=== PATIENT | male | born 1970 | race Caucasian/White ===

== ENCOUNTER 2023-04-16 16:38 | Outpatient (CLI) | payer BC, SELFPAY ==
--- NOTE | ~2023-04-16 | XR_ITS ---
Supine and upright views of the abdomen Clinical history: Kidney stones Findings: Bowel gas pattern is nonspecific. No evidence for obstruction or free air. Left-sided kidne y stones are present, largest measuring up to approximately 12 mm. There are probable small right issac al stones measuring up to approximately 3 mm.. Osseous structures are intact. Impression: Bilateral nephrolithiasis, left worse than right, as detailed above. Reviewed, dictated and finalized at location . Impression: Bilateral nephrolithiasis, left worse than right, as detailed above.
== END 2023-04-16 16:39 | disposition home or self-care (01) ==
LOC: ANHIMG 16:43
PROVIDERS: PCP Family Medicine Sports Medicine; Visit Provider Urology
DX: N20.0 Calculus of kidney (principal)
CPT/HCPCS: 74018

== ENCOUNTER 2023-05-05 10:13 | Outpatient (CLI) | payer BC, SELFPAY ==
--- NOTE | 2023-05-05 10:21 | ECG_ITS ---
Measurements Intervals Allen Rate: 70 P: 6 ID: [id number] QRS: -2 QRSD: 97 T: 4 QT: 356 QTc: 385 Interpretive Statements SINUS RHYTHM WITH OCCASIONAL VENTRICULAR PREMATURE COMPLEXES CONSIDER PREVIOUS ANTEROSEPTAL NM ABNORMAL ECG NO PREVIOUS ECG AVAILABLE FOR COMPARISON Electronically Signed On 05-06-2023 8:15:14 CDT by Milan Mejia M.D.
== END 2023-05-05 10:14 | disposition home or self-care (01) ==
LOC: ANHCARD 10:16
PROVIDERS: PCP Family Medicine Sports Medicine; Visit Provider Anesthesiology
DX: Z01.818 Encounter for other preprocedural examination (principal); R94.31 Abnormal electrocardiogram [ECG] [EKG]; R93.1 Abnormal findings on diagnostic imaging of heart and coronary circulation; I10 Essential (primary) hypertension
CPT/HCPCS: 93005

== ENCOUNTER 2023-05-11 01:28 | Day surgery (SDC) | payer BC, SELFPAY ==
[2023-05-01 11:21] VITALS: BMI 53.8
--- NOTE | 2023-05-01 11:33 | PC.NURSE ---
Report to the Outpatient Waiting Room, entrance under the green pavilion located off [facility], at time 0600 on date 05/11/23. Planned Procedure Time: 0730. Time changes happen often and if your time is changed the preop area will call you the afternoon before. - You and your visitor will be asked to self-screen and do not enter if you have any COVID symptoms. - A mask is optional within the hospital at this time. Patients may have clear liquids (water, carbonated beverages, clear teas, apple juice) until 3 hours prior to surgery with a maximum of 20 ounces. - No food from midnight until time of surgery Take the following medications with a SIP of water the morning of surgery: AMLODIPINE, CARVEDILOL DO NOT STOP ANY OF YOUR OTHER PRESCRIPTION MEDICATIONS PRIOR TO SURGERY ?EXCEPT THE FOLLOWING Medications to discontinue per physician: N/A Date to take last dose: N/A Please no make-up, nail guyanese, hairspray, perfume, deodorant, or body powder the day of surgery. No jewelry (including any body piercings) or valuables the day of surgery, leave them at home. Please take a shower or bath the night before, or the morning of, surgery with an antibacterial soap. Wear comfortable, loose fitting clothing. - Jewelry must be removed prior to entering the operating room. Rings and piercings that are not removed may be cut off. - The hospital will not accept responsibility for valuables. - Please leave all valuables, including medications, at home the day of surgery. If you are going home after surgery, a licensed ups driver must drive you home. - NO public transportation without another adult if you receive anesthesia. - We recommend that an adult stay with you for 24 hours following discharge. - We also recommend that you do not drive, make important decision, drink alcoholic beverages, or take any drugs that were not prescribed by your health care provider for at least 24 hours after your discharge time. Follow any additional instructions given to you from your surgeon. If you or anyone in your household have experienced Covid symptoms in the past week, please notify your surgeon or the nurse liaison at the phone number below for possible testing. Telephone instructions given to PT - JUAN DANG and asked if any additional questions and then verbalized understanding. Patient advised to call surgeon office or pre surgery nurse liaison [phone] if any additional questions.
--- NOTE | 2023-05-01 11:55 | PC.NURSE ---
Report to the Outpatient Waiting Room, entrance under the green pavilion located off [facility], at time 10:00 on date 05/11/23. Planned Procedure Time: 12:00. Time changes happen often and if your time is changed the preop area will call you the afternoon before. - You and your visitor will be asked to self-screen and do not enter if you have any COVID symptoms. - A mask is optional within the hospital at this time. Patients may have clear liquids (water, carbonated beverages, clear teas, apple juice) until 3 hours prior to surgery (9:00) with a maximum of 20 ounces. - No food from midnight until time of surgery Take the following medications with a SIP of water the morning of surgery: AMLODIPINE, CARVEDILOL DO NOT STOP ANY OF YOUR OTHER PRESCRIPTION MEDICATIONS PRIOR TO SURGERY ?EXCEPT THE FOLLOWING Medications to discontinue per physician: N/A Date to take last dose: N/A Please no make-up, nail colombian, hairspray, perfume, deodorant, or body powder the day of surgery. No jewelry (including any body piercings) or valuables the day of surgery, leave them at home. Please take a shower or bath the night before, or the morning of, surgery with an antibacterial soap. Wear comfortable, loose fitting clothing. - Jewelry must be removed prior to entering the operating room. Rings and piercings that are not removed may be cut off. - The hospital will not accept responsibility for valuables. - Please leave all valuables, including medications, at home the day of surgery. If you are going home after surgery, a licensed local tanker truck driver must drive you home. - NO public transportation without another adult if you receive anesthesia. - We recommend that an adult stay with you for 24 hours following discharge. - We also recommend that you do not drive, make important decision, drink alcoholic beverages, or take any drugs that were not prescribed by your health care provider for at least 24 hours after your discharge time. Follow any additional instructions given to you from your surgeon. If you or anyone in your household have experienced Covid symptoms in the past week, please notify your surgeon or the nurse liaison at the phone number below for possible testing. Telephone instructions given to PT - JUAN DANG and asked if any additional questions and then verbalized understanding. Patient advised to call surgeon office or pre surgery nurse liaison [phone] if any additional questions.
--- NOTE | 2023-05-02 07:29 | P.HP_ITS ---
History of Present Illness History of Present Illness Consent: Risks, benefits, and alternatives have been discussed and questions answered. Patient agrees to proceed with procedure. Chief complaint: lt renal stone Narrative: Robert Stroud is a 52 year old male with a history of recurrent urolithiasis who now has known hyperparathyroidism which is attempting to be managed did [facility]. In routine follow-up he was found to hav e a small stone in his right kidney but a 12 mm stone in his left kidney. We discussed options and ultimately decided on laser lithotripsy via ureteroscopy. Review of Systems Cardiovascular: Cardiovascular: Denies chest pain, Denies lightheadedness, Denies palpitations and Denies dyspnea Respiratory: Respiratory: Denies dyspnea Gastrointestinal: Gastrointestinal: Denies diarrhea, Denies nausea and Denies vomiting Genitourinary: Genitourinary: Denies hematuria and Denies dysuria Endocrine: Endocrine: Denies palpitations [facility] Social History Social History Smoking packs per day: 1 Smoking cigarettes per day: 20.0 Years smoked: 10 Smoking pack-years: 10.00 Smoking status: Current every day smoker Tobacco type: cigarettes Alcohol intake: current Alcohol use details: RARE Substance use: never Substance use type: does not use Living arrangements: with family Additional living arrangements comments: MOTHER Spiritual care concerns: No Meds Home Medications and Allergies Home Medications Medication Instructions Recorded Confirmed Type amlodipine 10 mg tablet 10 mg PO DAILY 05/01/23 05/01/23 History atorvastatin 20 mg tablet 20 mg PO HS 05/01/23 05/01/23 History carvedilol 12.5 mg tablet 12.5 mg PO BID 05/01/23 05/01/23 History lisinopril 40 mg tablet 40 mg PO DAILY 05/01/23 05/01/23 History Allergies Allergy/AdvReac Type Severity Reaction Status Date / Time No Known Allergies Allergy Verified 05/01/23 11:19 Exam Const: General: no acute distress Resp: Effort & Inspection: normal respiratory effort GI: Inspection: non-distended GI Palp: No abdominal tenderness and No Guarding due to palpation present (GI) Auscultation: normal bowel sounds Assessment and Plan Assessment and plan (1) Left renal stone: Code(s): N20.0 - Calculus of kidney Status: Acute Assessment and Plan: * cystoscopy with left ureteroscopy, laser lithotripsy with stone extraction, possible retrograde pyelography, possible left ureteral stent placement
--- NOTE | ~2023-05-11 | XR_ITS ---
EXAMINATION: XR retrograde pyelo w/stent LT DATE: 05/11/2023 11:33 INDICATION: Nephrolithiasis for left retrograde ureteral pyelogram and stent placement. TECHNIQUE: 3 fluoroscopic images of the abdomen and pelvis were obtained during procedure performed eduardo Carreon. Radiologist was not present for the imaging or procedure. The amount of fluoroscopy gonzales e used during this procedure was 3.2 minutes. COMPARISON: 04/16/2023 FINDINGS: Initial image demonstrates cannulation of the left ureter to the renal pelvis with injection of small amount of contrast which only incompletely opacifies the collecting system extending primarily into the upper pole calyx. Densities at the mid and lower pole calyces which appear to correspond to the p revious noted renal stones. Final images demonstrate placement of a left internal ureteral stent with loops formed in the region of the left renal pelvis and in the bladder. The previously noted stones are not appreciated on the final image over the regions of the lateral upper pole of the left kidney may be excluded from the field of imaging. IMPRESSION: 1. Left nephrolithiasis, potentially extracted, with placement of a left internal ureteral stent whic h is in expected position. See procedure note for further detail. Reviewed, dictated and finalized at location A. IMPRESSION: 1. Left nephrolithiasis, potentially extracted, with placement of a left internet media planner al ureteral stent which is in expected position. See procedure note for further detail.
--- NOTE | 2023-05-11 07:01 | WPDANESEPPF ---
Anes - Initial Pre Proc Eval Procedure: Operation Date: 05/11/23 10:30 Proposed Procedures p Cystoscopy ,Left Ureteroscopy, Left Retrograde Pyelogram, Possible Left Stone Extraction, Possible Left Stent Placement, Possible Holmium Laser - Layton Carreon MD Date/Time: 05/11/23 07:01 Surgeon: Layton Carreon MD Pre Op Diagnosis: lt renal stone Patient Data Age: 52 Gender: M Height: 1.88 m Weight: 190.51 kg Allergies Allergy/AdvReac Type Severity Reaction Status Date / Time No Known Allergies Allergy Verified 05/01/23 11:19 Home Medications Medication Instructions Recorded Confirmed Type amlodipine 10 mg tablet 10 mg PO DAILY 05/01/23 05/01/23 History atorvastatin 20 mg tablet 20 mg PO HS 05/01/23 05/01/23 History carvedilol 12.5 mg tablet 12.5 mg PO BID 05/01/23 05/01/23 History lisinopril 40 mg tablet 40 mg PO DAILY 05/01/23 05/01/23 History Patient hx anesthesia problems: none Family hx anesthesia problems: none Results Review: All pre-operative results and documents have been reviewed as part of the pre-operative evaluation. [facility] Past Medical History Medical History (Updated 05/11/23 @ 07:01 by Marv Shelley DO) COPD (chronic obstructive pulmonary disease) borderline Hyperlipidemia Hypertension OPAL (obstructive sleep apnea) Bipap Social History Social History Smoking packs per day: 1 Smoking cigarettes per day: 20.0 Years smoked: 10 Smoking pack-years: 10.00 Smoking status: Current every day smoker Tobacco type: cigarettes Alcohol intake: current Alcohol use details: RARE Substance use: never Substance use type: does not use Living arrangements: with family Additional living arrangements comments: MOTHER Spiritual care concerns: No Anes - Eval Final PreProcedure Day of Procedure 05/11/23 07:01 Patient weight: super morbidly obese Heart: regular rate and rhythm Lungs: clear to auscultation Airway: Mallampati scale class II Neurological: alert and oriented Last oral intake: >/= 8 hours ASA classification: III Emergent: no Anesthetic plan: proceed Anesthesia type and monitoring: general LMA and standard monitoring Results Review: All pre-operative results and documents have been reviewed as part of the pre-operative evaluation. Informed Consent: The patient's anesthetic plan and its attendant risks and benefits were discussed with the patient/family/POA. Questions were solicited and answers provided to the satisfaction of the patient/family/POA.
[2023-05-11] MEDS: LACTATED RINGERS 1,000 ML 30 ML IV CONT (09:30)
[2023-05-11 09:38] VITALS: BP 146/80; PULSE 65; RESP 16; TEMP 36.3; O2SAT 94
--- NOTE | 2023-05-11 10:27 | WPDHPUPDATE1 ---
History and Physical Update Update Date/Time: 05/11/23 10:27 History and Physical has been reviewed, including an updated exam of the patient. There are NO changes in the patient's condition. Risks, benefits, and alternatives have been discussed and questions answered. Patient agrees to proceed with procedure.
[2023-05-11] MEDS: ceFAZolin 3 GM/D5W 100 ML 100 ML IVPB (10:32)
--- NOTE | 2023-05-11 11:37 | W.PM.PROC2 ---
Procedure Note - Detailed Date of Procedure 05/11/23 Pre-op Diagnosis left renal stones Post-op Diagnosis Same Procedure Performed Cystoscopy, left ureteroscopy with laser lithotripsy, stone extraction and stent placement Surgeon Layton Carreon MD Anesthesia General Description of Procedure Patient brought to the operative suite was prepped draped in routine sterile fashion while in dorsal lithotomy position after the uneventful induction of a general anesthetic. Cystoscopy was undertaken with a 19 F rigid cystoscope. He has a moderate prostate with a high median bar. Bladder shows slight trabeculation without intravesical foreign body or neoplasm. A 0.035 in glidewire was advanced into his left renal pelvis and the distal ureter was dilated with an 8 F 10 F dilator. The safety wire was placed. The left ureteral re-endoscopy is undertaken 1st with a semi-rigid ureteral scope to ensure no distal stones and then a flexible scope. He has a 12 mm lower pole stone which I moved into an upper pole calyx with a Zero tip basket. He has a couple small mid pole calyceal stones. Using a 273 micron holmium laser fiber I dusted all stones into fragments less than 2 mm. A couple of the larger fragments were extracted with the basket and a 4.8 F variable length stent was positioned with the proximal coil in the renal pelvis and distal coil in the bladder. Drains No Packing No Pathology Yes Complications No immediate complications Condition Stable Disposition PACU
[2023-05-11 11:39] VITALS: BP 172/105; PULSE 76; RESP 14; O2SAT 96
[2023-05-11 11:55] VITALS: BP 124/74; PULSE 59; RESP 16; O2SAT 99
[2023-05-11 12:10] VITALS: BP 148/78; PULSE 53; RESP 12; O2SAT 96
[2023-05-11 12:21] VITALS: BP 163/84; PULSE 56; RESP 20
[2023-05-11 12:50] VITALS: BP 141/59; PULSE 59; RESP 20
== END 2023-05-11 13:15 | disposition home or self-care (01) ==
PROVIDERS: PCP Family Medicine Sports Medicine; Visit Provider Urology
PROC: (CPT 52352; principal; 2023-05-11 10:30)
DX: N20.0 Calculus of kidney (principal); J44.9 Chronic obstructive pulmonary disease, unspecified; I10 Essential (primary) hypertension; E78.5 Hyperlipidemia, unspecified; G47.33 Obstructive sleep apnea (adult) (pediatric); F17.210 Nicotine dependence, cigarettes, uncomplicated; E66.01 Morbid (severe) obesity due to excess calories; Z68.43 Body mass index [BMI] 50.0-59.9, adult
CPT/HCPCS: 52356; 74420; 82365; 88300; 93005; C1769; C1894; C2617; J0690; J1100; J2250; J2405; J2704; J3010; J7120; Q9966

== ENCOUNTER 2023-07-14 21:42 | Emergency (ER) | payer BC, SELFPAY ==
--- NOTE | ~2023-07-14 | US_ITS ---
EXAMINATION: US scrotum doppler DATE: 07/14/2023 23:54 INDICATION: Testicular pain and swelling. TECHNIQUE: Grayscale and Doppler ultrasound images of the testes were obtained. COMPARISON: CT abdomen and pelvis 07/15/2023 FINDINGS: The right testis measures 4.2 x 2.5 x 3.2 cm. The left testis measures 4.1 x 2.9 x 3.3 cm. There is normal vascular flow to both testes. The right epididymis demonstrates heterogeneous echogen icity and increased vascularity. The left epididymis demonstrates heterogeneous echogenicity and incr eased vascularity. There are small bilateral hydroceles. There is scrotal skin thickening. There is a right-sided varicocele. IMPRESSION: 1. Bilateral epididymitis. 2. Small bilateral hydroceles. Reviewed, dictated and finalized at location A. IC SUPERVISOR
--- NOTE | ~2023-07-14 | CT_ITS ---
EXAMINATION: CT abdomen pelvis wo con DATE: 07/15/2023 02:03 INDICATION: Kidney stone. TECHNIQUE: Computed tomography (CT) of the abdomen and pelvis was performed without intravenous contr ast. Automated exposure control and iterative reconstruction technique were employed. The dose-length product was 2130.14 mGy-cm. COMPARISON: None. FINDINGS: The visualized portions of the lung bases demonstrate mild atelectasis. No pleural effusion . The heart size is normal. No pericardial effusion. There is diffuse hepatic steatosis. The gallblad julia, spleen, pancreas, and adrenal glands are normal. There are 5 stones in right kidney measuring up to 5 mm. There are 6 stones in left kidney measuring up to 9 mm. There is a 3.2 cm cyst in left kidn ey. There is cortical thinning of the kidneys. There is a left inguinal hernia containing fat. There are no dilated loops of bowel. The appendix is normal. There are no pathologically enlarged lymph nod es. There is no free intraperitoneal fluid. IMPRESSION: 1. Bilateral nonobstructing kidney stones. 2. Left inguinal hernia containing fat. 3. Diffuse hepatic steatosis. Reviewed, dictated and finalized at location A. SQL DBA
[2023-07-14 21:49] VITALS: BP 153/78; PULSE 88; RESP 20; TEMP 37.1; O2SAT 95
[2023-07-14 22:04] LABS: Basophils Absolute Auto 0.1 K/mm3 (0.0-0.1); Basophils Percent Auto 0.4 % (0.2-1.2); Eosinophils Absolute Auto 0.1 K/mm3 (0-0.3); Eosinophils Percent Auto 1.1 % (0-4.4); Hematocrit 43.5 % (42.0-52.0); Hemoglobin 14.3 g/dL (14.0-18.0); Immature Granulocyte Absolute 0.02 K/mm3 (0.00-0.031); Immature Granulocyte Percent A 0.2 % (0-0.5); Lymphocytes Absolute Auto 2.06 K/mm3 (0.9-3.2); Lymphocytes Percent Auto 16.4 % (18.3-44.2); Mean Corpuscular HGB Conc 32.9 g/dl (32-36); Mean Corpuscular Hemoglobin 31.6 pg (26-34); Mean Corpuscular Volume 96.2 fl (80-100); Mean Platelet Volume 11.5 fl (7.4-10.4); Monocytes Percent Auto 7.8 % (2.6-8.5); Neutrophils Absolute Auto 9.3 K/mm3 (1.3-6.7); Neutrophils Percent Auto 74.1 % (45.5-73.1); Platelet Count Result 196 k/mm3 (150-375); Red Blood Count 4.52 M/mm3 (4.6-6.20); Red Cell Distribution Width 14.1 % (11.5-14.5); White Blood Count 12.6 K/mm3 (4.5-10.0)
[2023-07-14 22:14] LABS: Alanine Aminotransferase 29 U/L (6-50); Albumin Level 4.4 g/dL (3.5-5.1); Alkaline Phosphatase 95 U/L (38-126); Anion Gap 8 mmol/L (8-16); Aspartate Amino Transferase 20 U/L (17-59); Bilirubin,Total 1.1 mg/dL (0.2-1.3); Blood Urea Nitrogen 15 mg/dL (9-20); Calcium 12.5 mg/dL (8.4-10.2); Carbon Dioxide 22 mmol/L (22-30); Chloride 106 mmol/L (98-107); Estimated CRCL calculation 135 ml/min; Estimated Glomerular Filt Rate > 60; Glucose 107 mg/dL (65-110); Potassium 4.2 mmol/L (3.4-5.0); Sodium 136 mmol/L (137-145)
[2023-07-14 22:26] LABS: Appearance Urine Turbid (Clear); Bacteria Urine 4+ /hpf; Bilirubin Urine Negative (Negative); Blood Urine 3+ (Negative); Color Urine Dark Yellow (Yellow); Glucose Urine UA Negative (Negative); Ketones Urine Negative (Negative); Leukocyte Esterase Ur 3+ LEU/UL (Negative); Nitrate Urine Positive (Negative); Non Pathogenic Casts 0-2; Protein Urine 1+ mg/dL (Negative); RBC Urine 51-100 /hpf (0-2); Specific Grav Ur 1.017 (1.001-1.035); Squamous Epithelial Cell Urine None seen /hpf (Few); WBC Urine >100 /hpf; pH Urine 5.5 (5.0-9.0)
[2023-07-14 22:27] LABS: Add Urine Microscopic? YES
[2023-07-15] VITALS (11 sets, daily range): BP systolic 145–153; BP diastolic 67–86; PULSE 71–82; RESP 14–20; O2SAT 94–97
[2023-07-15] MEDS: SODIUM CHLORIDE 0.9% IV 1,000 ML 999 ML IV CONT (01:36)
[2023-07-15] MEDS: levoFLOXacin 750 MG/D5W 150 ML 750 MG/150 ML BAG 100 MG IVPB (01:36)
[2023-07-15] MEDS: MORPHINE SULFATE (*CRX) 4 MG/ML INJ IV PUSH (03:00)
--- NOTE | 2023-07-15 05:46 | ED.GENADULT ---
HPI - General Adult General Chief complaint: Urogenital-Male Stated complaint: L testicle swelling and pain Time Seen by Provider: 07/15/23 00:29 History of Present Illness HPI narrative: Patient 52-year-old gentleman who presents emerged from with chief complaint of left scrotal pain. Patient reports that he started having pain and swelling in the left side of the scrotum this morning. The patient reports that his left testicle is extremely swelling does have prior history of kidney stones. Related Data Home Medications Medication Instructions Recorded Confirmed amlodipine 10 mg tablet 10 mg PO DAILY 05/01/23 05/01/23 atorvastatin 20 mg tablet 20 mg PO HS 05/01/23 05/01/23 carvedilol 12.5 mg tablet 12.5 mg PO BID 05/01/23 05/11/23 lisinopril 40 mg tablet 40 mg PO DAILY 05/01/23 05/01/23 Allergies Allergy/AdvReac Type Severity Reaction Status Date / Time No Known Allergies Allergy Verified 07/14/23 21:54 Review of Systems Review of Systems: A 10 system review of systems was completed on the patient and is negative except for what is stated in the HPI. Nursing and ancillary documentation was reviewed. PMFSH Past Medical History Medical History COPD (chronic obstructive pulmonary disease) borderline Hyperlipidemia Hypertension OPAL (obstructive sleep apnea) Bipap Social History Social History Smoking packs per day: 1 Smoking cigarettes per day: 20.0 Years smoked: 10 Smoking pack-years: 10.00 Smoking status: Current every day smoker Tobacco type: cigarettes Alcohol intake: current Alcohol use details: RARE Substance use: never Substance use type: does not use Living arrangements: with family Additional living arrangements comments: MOTHER Spiritual care concerns: No Exam Narrative: GENERAL: Well-appearing, well-nourished, and in no acute distress. HEAD: Normocephalic, atraumatic. EYES: PERRLA and EOMI. ENT: Nares clear, no rhinorrhea or epistaxis. Mucous membranes moist. NECK: Supple. CHEST: Clear to auscultation. No respiratory distress. HEART: Regular rate and rhythm. No murmur heard. Normal peripheral pulses. ABDOMEN: Soft, nontender, nondistended, normal active bowel sounds. : The scrotum is approximately the size of a grapefruit there is tenderness to palpation in the left hemiscrotum there is redness of the scrotum there is no crepitance there is no necrotic tissue EXTREMITIES: Normal range of motion. No edema. SKIN: Warm, dry, no rash. NEURO: No focal deficits. Alert and oriented x3. PSYCH: Normal mood and affect. Course Vital Signs Vital signs: Vital Signs Temperature 37.1 C 07/14/23 21:49 Pulse Rate 88 07/14/23 21:49 Respiratory Rate 20 07/14/23 21:49 Blood Pressure 153/78 H 07/14/23 21:49 Pulse Oximetry 95 07/14/23 21:49 Oxygen Delivery Room Air 07/14/23 21:49 Temperature 37.1 C 07/14/23 21:49 Pulse Rate 72 07/15/23 05:00 Respiratory Rate 17 07/15/23 05:00 Blood Pressure 152/80 H 07/15/23 05:33 Pulse Oximetry 96 07/15/23 05:00 Oxygen Delivery Room Air 07/14/23 21:49 Medical Decision Making MDM Narrative Medical decision making narrative: Differential diagnosis includes epididymitis, epididymal orchitis, Magdalena's gangrene, Ultrasound of the scrotum showed evidence of a epididymitis CT scan of the abdomen pelvis showed no evidence of obstructive stone White blood cell count was slightly elevated urinalysis showed evidence of UTI. Will be discharged home on Levaquin and a prescription for [place]. Vital Signs Vital Signs: Vital Signs Temperature 37.1 C 07/14/23 21:49 Pulse Rate 88 07/14/23 21:49 Respiratory Rate 20 07/14/23 21:49 Blood Pressure 153/78 H 07/14/23 21:49 Pulse Oximetry 95 07/14/23 21:49 Oxygen Delivery Room Air 07/14/23 21:49
[2023-07-15 06:51] LABS: Chlamydia trachomatis NOT DETECTED (NOT DETECTE); Neisseria gonorrhoeae PCR NOT DETECTED (NOT DETECTE)
== END 2023-07-15 07:21 | disposition home or self-care (01) ==
PROVIDERS: Emergency Provider Emergency Medicine; PCP Family Medicine Sports Medicine
DX: N45.1 Epididymitis (principal); N39.0 Urinary tract infection, site not specified; I10 Essential (primary) hypertension; E78.5 Hyperlipidemia, unspecified; J44.9 Chronic obstructive pulmonary disease, unspecified; G47.33 Obstructive sleep apnea (adult) (pediatric); F17.210 Nicotine dependence, cigarettes, uncomplicated
CPT/HCPCS: 36415; 74176; 76870; 80053; 81001; 83605; 85025; 87040; 87077; 87086; 87147; 87181; 87186; 87491; 87591; 93976; 96365; 96366; 96375; 99284; J1956; J2270; J7030

== ENCOUNTER 2023-07-16 10:50 | Emergency (ER) | payer BC, SELFPAY ==
--- NOTE | ~2023-07-16 | XR_ITS ---
EXAMINATION: XR chest 2V DATE: 07/16/2023 11:37 INDICATION: Sepsis. TECHNIQUE: Frontal and lateral views of the chest were obtained. COMPARISON: CT abdomen and pelvis 07/15/2023 FINDINGS: There is no pneumonia, pleural effusion, or pneumothorax. The heart size is normal. Surgica l clips overlie the neck. IMPRESSION: 1. No acute cardiopulmonary disease. Reviewed, dictated and finalized at location A. ARY CLASS TEACHER
[2023-07-16 10:51] VITALS: BP 155/77; PULSE 81; RESP 16; TEMP 36.8; O2SAT 99
--- NOTE | 2023-07-16 11:11 | ED.RECABL ---
HPI - Recheck/Abnormal Lab/Rx General Chief Complaint: Recheck/Abnormal Lab/Rx <Gabo Zaman APRN - Last Filed: 07/16/23 17:51> Stated Complaint: positive blood cultures <Gabo Zaman APRN - Last Filed: 07/16/23 17:51> Time Seen by Provider: 07/16/23 11:12 <aGbo Zaman APRN - Last Filed: 07/16/23 17:51> Source: patient <Gabo Zaman APRN - Last Filed: 07/16/23 17:51> Mode of arrival: ambulatory <Gabo Zaman APRN - Last Filed: 07/16/23 17:51> Limitations: no limitations <Gabo Zaman APRN - Last Filed: 07/16/23 17:51> History of Present Illness HPI narrative: Robert is a 52-year-old male patient presenting to the clinic today with complaints of positive blood cultures-upon evaluation blood cultures are positive for E coli. Patient was treated with prescription for Levaquin and [place] for pain. Patient was seen on 07/14/23 and diagnosed with acute epididymitis. Did have scrotal/penile edema. White blood cell count was initially 12.6. Urine culture is positive for E coli as well. His PCP got his blood culture results as positive for E coli and told him he needed to come to the ER for further evaluation. Diagnostic ultrasound shows bilateral epididymitis and CT of abdomen pelvis shows left inguinal hernia containing fat, He denies any fever, chills, weakness, fatigue, or body aches. Last Levaquin dose was last night. <Gabo Zaman APRN - Last Filed: 07/16/23 17:51> Related Data Home Medications: Home Medications Medication Instructions Recorded Confirmed amlodipine 10 mg tablet 10 mg PO DAILY 05/01/23 05/01/23 atorvastatin 20 mg tablet 20 mg PO HS 05/01/23 05/01/23 carvedilol 12.5 mg tablet 12.5 mg PO BID 05/01/23 05/11/23 lisinopril 40 mg tablet 40 mg PO DAILY 05/01/23 05/01/23 <Gabo Zaman APRN - Last Filed: 07/16/23 17:51> Allergies/Adverse Reactions: Allergies Allergy/AdvReac Type Severity Reaction Status Date / Time No Known Allergies Allergy Verified 07/14/23 21:54 <Gabo Zaman APRN - Last Filed: 07/16/23 17:51> Review of Systems Review of Systems: Pertinent positives per HPI. Patient denies any fever, chills, rash, headache, visual changes, dizziness, cough, runny nose, sore throat, shortness of breath, chest pain, palpitations, nausea, vomiting, diarrhea, constipation, abdominal pain. <Gabo Zaman APRN - Last Filed: 07/16/23 17:51> [facility] Past Medical History Medical History: Medical History COPD (chronic obstructive pulmonary disease) borderline Hyperlipidemia Hypertension OPAL (obstructive sleep apnea) Bipap <Gabo Zaman APRN - Last Filed: 07/16/23 17:51> Social History Social History: Social History Smoking packs per day: 1 Smoking cigarettes per day: 20.0 Years smoked: 10 Smoking pack-years: 10.00 Smoking status: Current every day smoker Tobacco type: cigarettes Alcohol intake: current Alcohol use details: RARE Substance use: never Substance use type: does not use Living arrangements: with family Additional living arrangements comments: MOTHER Spiritual care concerns: No <RANDY Lopez Last Filed: 07/16/23 17:51> Comments At the time of my signature, I reviewed and agree with the nursing past medical, surgical, social, and family history. There is no relevant family history pertinent to the patient complaint. <Gabo Zaman APRN - Last Filed: 07/16/23 17:51> Exam Narrative: General: Well-developed, morbidly obese, in no apparent distress. Head: Normocephalic, atraumatic. Cardio: Regular rate and rhythm, s1 and s2 normal, no murmur appreciated. Resp: Clear to auscultation bilaterally, no rhonchi, rales, wheezing or rubs. Abdomen: Soft, pliable, bowel sounds present in al
--- NOTE | 2023-07-16 11:13 | ECG_ITS ---
Measurements Intervals [place] Rate: 71 P: 32 TN: 192 QRS: -1 QRSD: 95 T: 32 QT: 351 QTc: 382 Interpretive Statements SINUS RHYTHM LOW QRS VOLTAGE IN PRECORDIAL LEADS BORDERLINE ECG COMPARED TO ECG 05/05/2023 10:42:36 NO SIGNIFICANT CHANGES Electronically Signed On 07-16-2023 14:29:06 CAB STARTER by Ger Patel D.O.
[2023-07-16 12:14] LABS: Basophils Absolute Auto 0.1 K/mm3 (0.0-0.1); Basophils Percent Auto 0.5 % (0.2-1.2); Eosinophils Absolute Auto 0.2 K/mm3 (0-0.3); Eosinophils Percent Auto 2.1 % (0-4.4); Hematocrit 41.4 % (42.0-52.0); Hemoglobin 13.4 g/dL (14.0-18.0); Immature Granulocyte Absolute 0.03 K/mm3 (0.00-0.031); Immature Granulocyte Percent A 0.3 % (0-0.5); Lymphocytes Absolute Auto 1.96 K/mm3 (0.9-3.2); Mean Corpuscular HGB Conc 32.4 g/dl (32-36); Mean Corpuscular Hemoglobin 31.5 pg (26-34); Mean Corpuscular Volume 97.2 fl (80-100); Mean Platelet Volume 11.7 fl (7.4-10.4); Monocytes Percent Auto 10.1 % (2.6-8.5); Platelet Count Result 219 k/mm3 (150-375); Red Blood Count 4.26 M/mm3 (4.6-6.20); White Blood Count 10.3 K/mm3 (4.5-10.0)
[2023-07-16 12:24] LABS: Lactic Acid Reflex 0.8 mmol/L (0.7-2.0)
[2023-07-16 12:26] LABS: INR 1.1; Prothrombin Time 14.4 Seconds (11.1-14.7)
[2023-07-16 12:27] LABS: Partial Thromboplastin Time 30.5 SECONDS (22.3-36.8)
[2023-07-16 12:28] LABS: Alanine Aminotransferase 26 U/L (6-50); Albumin Level 4.2 g/dL (3.5-5.1); Alkaline Phosphatase 71 U/L (38-126); Anion Gap 6 mmol/L (8-16); Aspartate Amino Transferase 25 U/L (17-59); Bilirubin,Total 0.7 mg/dL (0.2-1.3); Blood Urea Nitrogen 20 mg/dL (9-20); CRP 5.4 mg/dL (<1.0); Calcium 12.5 mg/dL (8.4-10.2); Carbon Dioxide 23 mmol/L (22-30); Chloride 110 mmol/L (98-107); Estimated CRCL calculation 125 ml/min; Estimated Glomerular Filt Rate > 60; Glucose 99 mg/dL (65-110); Potassium 4.5 mmol/L (3.4-5.0); Sodium 139 mmol/L (137-145)
[2023-07-16 12:45] LABS: Appearance Urine Cloudy (Clear); Bacteria Urine None Seen /hpf; Bilirubin Urine Negative (Negative); Blood Urine 2+ (Negative); Color Urine Yellow (Yellow); Glucose Urine UA Negative (Negative); Ketones Urine Negative (Negative); Leukocyte Esterase Ur 2+ LEU/UL (Negative); Mucus Urine Present /lpf; Nitrate Urine Positive (Negative); Protein Urine Trace mg/dL (Negative); RBC Urine 21-50 /hpf (0-2); Specific Grav Ur 1.017 (1.001-1.035); Squamous Epithelial Cell Urine None seen /hpf (Few); WBC Urine >100 /hpf; pH Urine 5.5 (5.0-9.0)
[2023-07-16 12:46] LABS: Add Urine Microscopic? YES
[2023-07-16] MEDS: SODIUM CHLORIDE 0.9% IV 1,000 ML 999 ML IV CONT (12:51)
[2023-07-16] MEDS: ACETAMINOPHEN 500 MG TABLET 1000 MG PO (15:14)
[2023-07-16 15:16] VITALS: BP 160/90; PULSE 74; RESP 18; TEMP 36.8; O2SAT 98
--- NOTE | 2023-07-16 15:24 | PC.NURSE ---
Noted pts scrotum & penis edematous. Pt states he feels the pressure is much better than yesterday, denies any urinary symptoms
[2023-07-16 16:50] VITALS: BP 160/90; PULSE 78; RESP 18; TEMP 36.8; O2SAT 98
== END 2023-07-16 16:54 | disposition home or self-care (01) ==
PROVIDERS: Emergency Provider Nurse Practitioner Family; PCP Family Medicine Sports Medicine
DX: N30.01 Acute cystitis with hematuria (principal); B96.20 Unspecified Escherichia coli [E. coli] as the cause of diseases classified elsewhere; K40.90 Unilateral inguinal hernia, without obstruction or gangrene, not specified as recurrent; N45.1 Epididymitis; J44.9 Chronic obstructive pulmonary disease, unspecified; E78.5 Hyperlipidemia, unspecified; I10 Essential (primary) hypertension; G47.33 Obstructive sleep apnea (adult) (pediatric); F17.210 Nicotine dependence, cigarettes, uncomplicated; R94.31 Abnormal electrocardiogram [ECG] [EKG]
CPT/HCPCS: 36415; 71046; 80053; 81001; 83605; 85025; 85610; 85730; 86140; 87040; 87086; 93005; 96361; 96365; 99284; A9270; J0696; J7030

== ENCOUNTER 2023-08-17 11:27 | Inpatient (IN) | payer BC, SELFPAY ==
[2023-08-17] VITALS (9 sets, daily range): BP systolic 131–154; BP diastolic 74–100; PULSE 103–112; RESP 7–29; TEMP 37.5–38.9; O2SAT 91–96; BMI 53.1
--- NOTE | ~2023-08-17 | CT_ITS ---
EXAMINATION: CT abdomen pelvis w con DATE: 08/17/2023 18:59 INDICATION: Right flank pain and testicular swelling. TECHNIQUE: Computed tomography (CT) of the abdomen and pelvis was performed with 100 mL Omnipaque-350 intravenous contrast. Automated exposure control and iterative reconstruction technique were employe d. The dose-length product was 2084.10 mGy-cm. COMPARISON: 07/15/2023 FINDINGS: Mild bibasilar atelectasis. Heart size is normal. No pericardial or pleural effusion. Diffuse hepatic steatosis. Gallbladder, spleen, pancreas and bilateral adrenal glands are normal. Bilateral nephroli thiasis with 6 nonobstructing stones in left kidney the largest measuring up to 7 mm and a couple 1-2 mm stones in the right kidney. There are also 2 stones in the proximal right ureter, the larger and more caudal measuring 5-6 mm and which results in mild to moderate right hydronephrosis with mild per inephric stranding. No stones seen in the more distal right ureter or in the left ureter. There are b ilateral renal cysts the largest on the left measuring 3.4 cm. Bladder is normal. Bowels including th e appendix are normal. There is a large fat-containing left inguinal hernia which extends into the le ft hemiscrotum. There is prominent scrotal edema with small to moderate-sized left hydrocele. No free intraperitoneal gas or fluid. No pathologically enlarged abdominal or pelvic lymphadenopathy. Mild t horacolumbar spondylosis with transitional S1 segment which is lumbarized on the right. IMPRESSION: 1. Bilateral nephrolithiasis with obstructing 5-6 mm stone in the proximal right ureter with mild to moderate right hydronephrosis. 2. Nonspecific scrotal edema and small to moderate-sized left hydrocele. 3. Large fat-containing left inguinal hernia which extends into the left hemiscrotum. 4. Diffuse hepatic steatosis. Reviewed, dictated and finalized at location A. NI RELATIONS MANAGER IMPRESSION: 1. Bilateral nephrolithiasis with obstructing 5-6 mm stone in the proximal righ t ureter with mild to moderate right hydronephrosis. 2. Nonspecific scrotal edema and small to moderate-sized left hydrocele. 3. Large fat-containing left inguinal hernia which extends into the left hemisc rotum. 4. Diffuse hepatic steatosis.
--- NOTE | ~2023-08-17 | XR_ITS ---
EXAMINATION: XR abdomen/kub 1V DATE: 08/17/2023 20:08 INDICATION: Obstructing right ureteral stone TECHNIQUE: A supine view of the abdomen on 3 radiographs was obtained. COMPARISON: CT dated 08/17/2023 FINDINGS: Excreted contrast from the prior CT seen in the bilateral renal collecting systems and bladder. Persi stent moderate hydronephrosis. There are couple densities projecting to the right of the L3-L4 disc s pace which likely represents the obstructing proximal right ureteral stone seen on prior CT. Normal b owel gas pattern. Lung bases are clear. IMPRESSION: 1. Persistent moderate right hydronephrosis with the obstructing proximal right ureteral stones likel y visible lateral to the L3-L4 disc space. Reviewed, dictated and finalized at location A. LIEUTENANT IMPRESSION: 1. Persistent moderate right hydronephrosis with the obstructing proximal right ureteral stones likely visible lateral to the L3-L4 disc space.
--- NOTE | ~2023-08-17 | XR_ITS ---
EXAMINATION: XR retrograde pyelo w/stent RT INDICATION: Right ureteral stone TECHNIQUE: Seven intraoperative fluoroscopic images are submitted for review. Total fluoroscopic time was 127.7 seconds COMPARISON: CT from yesterday FINDINGS: Fluoroscopic images demonstrate mild right hydroureter. The proximal aspect of an internal ureteral stent coils in the right renal pelvis. Please refer to procedure note for full details. IMPRESSION: 1. Please refer to procedure note for full details. Reviewed, dictated and finalized at location F. M SIGNALER
--- NOTE | ~2023-08-17 | US_ITS ---
EXAMINATION: US scrotum doppler DATE: 08/17/2023 19:06 INDICATION: Left testicular pain and swelling TECHNIQUE: Testicular sonogram utilizing grayscale and Doppler COMPARISON: 07/14/2023 FINDINGS: The right testis measures 4.7 x 3.7 x 1.8 cm. The left testis measures 4.0 x 3.9 x 2.8 cm. Symmetric normal grayscale appearance to both testes. There is normal vascular flow to both testes. 8 mm anecho ic right epididymal head cyst. The right epididymis is otherwise normal with normal vascular flow. Th e left epididymis is normal with normal vascular flow. What is designated as the head of the left epi didymis but the oil rigger. Represent a portion of the left inguinal herniated fat which is better a ppreciated on the prior CT. There is a small to moderate-sized mildly complex left hydrocele with min imal internal echoes and several thin internal septations which may be related to the recent epididym itis seen on the prior study. There is no varicocele or right-sided hydrocele. Persistent thickening of the scrotal wall. IMPRESSION: 1. Small to moderate-sized mildly complex left hydrocele which may be related to the recent prior bi lateral epididymitis. The bilateral testes and epididymides appear normal and the current study with normal vascular flow on color Doppler. 2. Persistent nonspecific scrotal wall edema. Reviewed, dictated and finalized at location A. ERY REPRESENTATIVE IMPRESSION: 1. Small to moderate-sized mildly complex left hydrocele which may be related to the recent prior bilateral epididymitis. The bilateral testes and epididymid es appear normal and the current study with normal vascular flow on color Doppl er. 2. Persistent nonspecific scrotal wall edema.
--- NOTE | ~2023-08-17 | CT_ITS ---
EXAMINATION: CT abdomen pelvis wo con DATE: 08/19/2023 11:03 INDICATION: Follow-up right ureteral calculus TECHNIQUE: Computed tomography (CT) of the abdomen and pelvis was performed without intravenous contr ast. Automated exposure control and iterative reconstruction technique were employed. The dose-length product was 1777.65 mGy-cm. COMPARISON: None. FINDINGS: Lower thorax: Bibasilar scar/atelectasis. Liver: Enlarged. Biliary/Gallbladder: Gallbladder is collapsed. No bile duct dilation. Pancreas: No mass or duct dilation. Spleen: Normal. Adrenals:No mass. Kidneys: Slightly increased right perinephric and moderately increased right periureteral stranding. Right ureteral stent, in good position. Gas in the renal pelvis and upper right calyces. 3 mm residua l calcification in the proximal right ureter. Multiple nonobstructing bilateral stones. Simple left m idpole cyst. GI tract: No small or large bowel dilation. Normal appendix. Mesentery/Peritoneum: No ascites, mass, or free air. Retroperitoneum: No mass. Atherosclerotic abdominal aortic and/or arterial calcifications. Pelvis: Mild urinary bladder wall thickening. Small gas bubble in the nondependent urinary bladder. T he distal loop of the ureteral stent is in good position.. Soft Tissues: Fat-containing left inguinal hernia. Bones: No acute osseous finding. IMPRESSION: Interval right ureteral stent placement. 3 mm residual right proximal ureteral stone. Increased mild right perinephric and moderate periureteral stranding, may represent post procedure inflammatory nichols ge. Infection is not excluded. Reviewed, dictated and finalized at location K. GER CARDIAC IMPRESSION: Interval right ureteral stent placement. 3 mm residual right proximal ureteral stone. Increased mild right perinephric and moderate periureteral stranding, ma y represent post procedure inflammatory change. Infection is not excluded.
--- NOTE | 2023-08-17 17:57 | ED.GENADULT ---
HPI - General Adult General Chief complaint: Urogenital-Male <Tomy Ellis PA-C - Last Filed: 08/18/23 02:51> Stated complaint: lower abd pain <CITLALI Gould Last Filed: 08/18/23 02:51> Time Seen by Provider: 08/17/23 17:21 <CITLALI Gould Last Filed: 08/18/23 02:51> Source: patient <CITLALI Gould Last Filed: 08/18/23 02:51> Mode of arrival: ambulatory <CITLALI Gould Last Filed: 08/18/23 02:51> Limitations: no limitations <CITLALI Gould Last Filed: 08/18/23 02:51> History of Present Illness HPI narrative: This is a 53-year-old male With PMH of OPAL, HTN, HLD, COPD who presents to the ED with chief complaint of fevers and dysuria for the past couple of days. Reports it is difficult to urinate but has urgency. Reports left testicular swelling that has been ongoing for the past several weeks and does not feel worse today But he still has pain here. Recent diagnosis of epididymitis. He is taking his antibiotics as prescribed. He also has chronic recurrent kidney stones and feels that he may have another one today is he is having right flank pain and suprapubic pain. He follows closely with Dr. Carreon (Urology). denies chest pain, shortness of breath, cough, problems with bowel movements. <CITLALI Gould Last Filed: 08/18/23 02:51> Related Data Home medications: Home Medications Medication Instructions Recorded Confirmed amlodipine 10 mg tablet 10 mg PO DAILY 05/01/23 08/17/23 atorvastatin 20 mg tablet 20 mg PO HS 05/01/23 08/17/23 carvedilol 12.5 mg tablet 12.5 mg PO BID 05/01/23 08/17/23 lisinopril 40 mg tablet 40 mg PO DAILY 05/01/23 08/17/23 <CITLALI Gould Last Filed: 08/18/23 02:51> Allergies/adverse reactions: Allergies Allergy/AdvReac Type Severity Reaction Status Date / Time No Known Allergies Allergy Verified 07/14/23 21:54 <Tomy Ellis PA-C - Last Filed: 08/18/23 02:51> Review of Systems Review of Systems: All systems as dictated in HPI <CITLALI Gould Last Filed: 08/18/23 02:51> PMFSH Past Medical History Medical History: Medical History COPD (chronic obstructive pulmonary disease) borderline Hyperlipidemia Hypertension OPAL (obstructive sleep apnea) Bipap <CITLALI Gould Last Filed: 08/18/23 02:51> Social History Social History: Social History Smoking packs per day: 1 Smoking cigarettes per day: 20.0 Years smoked: 10 Smoking pack-years: 10.00 Smoking status: Current every day smoker Tobacco type: cigarettes Alcohol intake: current Drinks per week: 2 Alcohol use details: RARE Substance use: never Substance use type: does not use Do You Feel Safe in your Home?: Yes Lack of Transportation: No Lack of Food: Never True Current Housing: I Have Housing Concerned About Future Housing: No Difficulty Paying Gas/Electric Bills: No Difficulty Paying for Meds: No Currently Unemployed: No Education: Associate Degree Difficulty w/ Childcare or Family Care: No Living arrangements: with family Additional living arrangements comments: MOTHER Spiritual care concerns: No <CITLALI Gould Last Filed: 08/18/23 02:51> Exam Narrative: GENERAL: Well-appearing, well-nourished, and in no acute distress. HEAD: Normocephalic, atraumatic. EYES: PERRLA and EOMI. ENT: Nares clear, no rhinorrhea or epistaxis. Mucous membranes moist. Oropharynx without tonsillar hypertrophy exudate or other lesions. NECK: Supple. No adenopathy or masses. CHEST: No respiratory distress. Clear to auscultation. No wheezes rales or rhonchi HEART: Regular rate and rhythm. No murmur heard. Normal peripheral pulses. ABDOMEN: Right flank tenderness. Soft, otherwise nontender, nondistended, normal active bowel soun
[2023-08-17 18:20] LABS: Basophils Percent Auto 0.3 % (0.2-1.2); Eosinophils Percent Auto 0.1 % (0-4.4); Hematocrit 45.3 % (42.0-52.0); Hemoglobin 14.8 g/dL (14.0-18.0); Immature Granulocyte Absolute 0.08 K/mm3 (0.00-0.031); Immature Granulocyte Percent A 0.5 % (0-0.5); Lymphocytes Absolute Auto 1.35 K/mm3 (0.9-3.2); Lymphocytes Percent Auto 8.7 % (18.3-44.2); Mean Corpuscular HGB Conc 32.7 g/dl (32-36); Mean Corpuscular Hemoglobin 30.8 pg (26-34); Mean Corpuscular Volume 94.2 fl (80-100); Mean Platelet Volume 11.7 fl (7.4-10.4); Monocytes Absolute Auto 1.5 K/mm3 (0.1-0.6); Neutrophils Absolute Auto 12.4 K/mm3 (1.3-6.7); Neutrophils Percent Auto 80.4 % (45.5-73.1); Platelet Count Result 209 k/mm3 (150-375); Red Blood Count 4.81 M/mm3 (4.6-6.20); Red Cell Distribution Width 13.9 % (11.5-14.5); White Blood Count 15.5 K/mm3 (4.5-10.0)
[2023-08-17 18:34] LABS: Alanine Aminotransferase 19 U/L (6-50); Albumin Level 4.2 g/dL (3.5-5.1); Alkaline Phosphatase 80 U/L (38-126); Anion Gap 9 mmol/L (8-16); Aspartate Amino Transferase 20 U/L (17-59); Bilirubin,Total 1.2 mg/dL (0.2-1.3); Blood Urea Nitrogen 14 mg/dL (9-20); Calcium 12.8 mg/dL (8.4-10.2); Carbon Dioxide 20 mmol/L (22-30); Chloride 104 mmol/L (98-107); Estimated CRCL calculation 111 ml/min; Estimated Glomerular Filt Rate > 60; Glucose 106 mg/dL (65-110); Lactic Acid Reflex 0.8 mmol/L (0.7-2.0); Lipase 23 U/L (23-300); Sodium 133 mmol/L (137-145)
[2023-08-17] MEDS: SODIUM CHLORIDE 0.9% IV 1,000 ML 999 ML IV CONT ×2 (18:44→21:30)
[2023-08-17] MEDS: HYDROmorphone HCL INJ (*CRX) 1 MG/ML SYR IV PUSH ×2 (18:45→23:16)
[2023-08-17] MEDS: ONDANSETRON INJ 4 MG/2 ML VIAL IV PUSH (18:45)
--- NOTE | 2023-08-17 19:31 | PC.NURSE ---
this RN assumed care of patient. this rn took patient report from SRINIVASA Sosa.
[2023-08-17 20:18] LABS: Appearance Urine Cloudy (Clear); Bacteria Urine 4+ /hpf; Bilirubin Urine Negative (Negative); Blood Urine 2+ (Negative); Color Urine Yellow (Yellow); Glucose Urine UA Negative (Negative); Ketones Urine Trace mg/dL (Negative); Leukocyte Esterase Ur 3+ LEU/UL (Negative); Nitrate Urine Positive (Negative); Non Pathogenic Casts 0-2; Protein Urine 2+ mg/dL (Negative); Specific Grav Ur 1.029 (1.001-1.035); Squamous Epithelial Cell Urine None seen /hpf (Few); WBC Urine >100 /hpf
[2023-08-17 20:39] LABS: Add Urine Microscopic? YES
--- NOTE | 2023-08-17 23:03 | ADMGEN ---
This patient, Robert Stroud, was admitted to [facility] Room 332-02. Patient/family oriented to hospital policies and general routines including ID bracelet, bed and alarms, visiting hours, pain management, procedures, bathroom and other care routines, personal items, smoking policy, room service/diet, and visiting hours. Information on how to activate the Rapid Response Team has been discussed. Patient/Family are encouraged to report perceived risks to care and to ask questions if they do not understand what they are told or what they should do.
[2023-08-18] VITALS (22 sets, daily range): BP systolic 100–164; BP diastolic 64–102; PULSE 71–105; RESP 14–22; TEMP 35.8–38.4; O2SAT 85–100
[2023-08-18] MEDS: ACETAMINOPHEN 500 MG TABLET 1000 MG PO ×2 (05:09→16:44)
--- NOTE | 2023-08-18 05:24 | PM.IMHP ---
H&P: HPI History of Present Illness Date/Time: 08/18/23 04:30 Chief Complaint: Fevers, ?I suspected I had a kidney stone? Narrative: 53-year-old male with a past medical history of multiple kidney stones, recent epididymitis, essential hypertension and morbid obesity who presented to the ER after developing a right anterior abdominal pain and right lateral abdominal pain for 3 days. Patient reported that the next day he developed fevers the T-max at home of greater than 101. He had associated chills and sweats. He denied having any nausea or vomiting. He had noticed increased urinary frequency with decreased volume of urine output. Urine also looked dark. He denies any hematuria or dysuria. He reports that initially he thought he may have passed the stone on the 2nd day but shortly thereafter is when his fever developed and his pain continued to worsen instead of improving. He reports persistent scrotal swelling from his epididymitis but he reports that the swelling is definitely improved over time. His edema softer. He finished his course of Keflex on the 25 of July. He follows with Dr. Carreon as outpatient. His last kidney stone requiring lithotripsy and ureteral stent was in April of 2023. He does have history of obstructive sleep apnea and has been compliant with his BiPAP at home but reports he feels like his machine is broken. He has not had a repeat sleep study in at least 8 years and has gained a significant amount of weight. He has not discussed the disease had with his machine with his primary care physician. In the ER patient was noted to be febrile with T-max for this hospital stay of 102.1. CT of the abdomen pelvis with contrast was obtained and demonstrated bilateral nephrolithiasis with an obstructing 5-6 mm stone in the right proximal ureter with [id number] right hydronephrosis. Nonspecific scrotal edema and small to moderate sized left hydrocele, large fat containing left inguinal hernia which extends into the left hemiscrotum and diffuse hepatic steatosis. Patient was tachycardic in the ER but appeared to be sinus tachycardia per report. He was intermittently tachypneic with respiratory rate of 24. Labs demonstrated leukocytosis, elevated calcium and UA consistent with UTI. Patient was admitted for septic stone. Urology was consulted from the ER and the ER provider told me that plan was for patient to be NPO for urologic procedure in a.m. Review of Systems Review of Systems: 12 systems were reviewed with pertinent positives and negatives per HPI. Except as documented in the HPI, all other systems were reviewed and are negative. [facility] Past Medical History Medical History (Updated 08/18/23 @ 05:48 by Jenny Merino DO) Continuous tobacco abuse COPD (chronic obstructive pulmonary disease) borderline Gout Hepatic steatosis Noted on imaging Hyperlipidemia Hypertension Morbid obesity with BMI of 50.0-59.9, adult OPAL (obstructive sleep apnea) Bipap Surgical History Surgical History (Updated 08/18/23 @ 05:38 by Jenny Merino DO) S/P cystoscopy with ureteral stent placement Social History Social History (Updated 08/18/23 @ 05:40 by Jenny Merino DO) Social History: He is single. Patient is smoked a pack of cigarettes per day since he was in his mid 20s. He had drinks in moderation on the weekends. He denies illicit substance use. Code status: Full code Surrogate decision maker: Sister Smoking packs per day: 1 Smoking cigarettes per day: 20.0 Years smoked: 10 Smoking pack-years: 10.00 Smoking status: Current every day smoker Tobacco type: cigarettes Alcohol intake: current Drinks per week: 2 Alcohol use details: RARE Substance use: never Substance use type: does not use Do You Feel Safe in your Home?: Yes Lack of Transportation: No Lack of Food: Never True Current Housing: I Have Housing Concerned About Future Housing: No Diff
[2023-08-18 07:08] LABS: Basophils Percent Auto 0.3 % (0.2-1.2); Eosinophils Percent Auto 0.1 % (0-4.4); Hematocrit 44.9 % (42.0-52.0); Hemoglobin 14.1 g/dL (14.0-18.0); Immature Granulocyte Absolute 0.07 K/mm3 (0.00-0.031); Immature Granulocyte Percent A 0.5 % (0-0.5); Lymphocytes Absolute Auto 1.44 K/mm3 (0.9-3.2); Lymphocytes Percent Auto 10.2 % (18.3-44.2); Mean Corpuscular HGB Conc 31.4 g/dl (32-36); Mean Corpuscular Hemoglobin 30.7 pg (26-34); Mean Corpuscular Volume 97.8 fl (80-100); Mean Platelet Volume 12.4 fl (7.4-10.4); Monocytes Absolute Auto 1.6 K/mm3 (0.1-0.6); Monocytes Percent Auto 11.4 % (2.6-8.5); Neutrophils Absolute Auto 10.9 K/mm3 (1.3-6.7); Neutrophils Percent Auto 77.5 % (45.5-73.1); Platelet Count Result 182 k/mm3 (150-375); Red Blood Count 4.59 M/mm3 (4.6-6.20); Red Cell Distribution Width 14.3 % (11.5-14.5); White Blood Count 14.1 K/mm3 (4.5-10.0)
[2023-08-18 07:34] LABS: Carbon Dioxide 21 mmol/L (22-30); Chloride 105 mmol/L (98-107); Potassium 4.1 mmol/L (3.4-5.0); Sodium 136 mmol/L (137-145)
[2023-08-18 07:35] LABS: Anion Gap 10 mmol/L (8-16); Blood Urea Nitrogen 14 mg/dL (9-20); Calcium 12.7 mg/dL (8.4-10.2); Estimated CRCL calculation 101 ml/min; Estimated Glomerular Filt Rate 58; Glucose 98 mg/dL (65-110)
--- NOTE | 2023-08-18 07:35 | PC.NURSE ---
To OR per hospital bed.
--- NOTE | 2023-08-18 07:52 | WPDANESEPPF ---
Anes - Initial Pre Proc Eval Procedure: Operation Date: 08/18/23 08:00 Proposed Procedures p Cysto, RPG, Stone Ext, Stent Placement(Right) - Jackson Heller MD Date/Time: 08/18/23 07:52 Surgeon: Juan Manuel Olivo MD Pre Op Diagnosis: Sepsis,UTI,R Ureteral Stone Patient Data Age: 53 Gender: M Height: 1.88 m Weight: 183.9 kg Last Vital Signs Temp 35.8 C L 08/18/23 05:25 Pulse 91 08/18/23 05:25 Resp 20 08/18/23 05:25 BP 138/89 08/18/23 05:25 Pulse Ox 92 08/18/23 05:25 O2 Del Method Room Air 08/17/23 12:16 Allergies Allergy/AdvReac Type Severity Reaction Status Date / Time No Known Allergies Allergy Verified 07/14/23 21:54 Home Medications Medication Instructions Recorded Confirmed Type amlodipine 10 mg tablet 10 mg PO DAILY 05/01/23 08/17/23 History atorvastatin 20 mg tablet 20 mg PO HS 05/01/23 08/17/23 History carvedilol 12.5 mg tablet 12.5 mg PO BID 05/01/23 08/17/23 History lisinopril 40 mg tablet 40 mg PO DAILY 05/01/23 08/17/23 History hydrocodone 5 mg-acetaminophen 325 1 - 2 tablet PO Q6H PRN pain #20 05/11/23 08/17/23 Rx mg tablet tabs Laboratory Tests 08/17/23 08/17/23 08/18/23 18:12 20:07 06:20 WBC 15.5 H K/mm3 14.1 H K/mm3 (4.5-10.0) (4.5-10.0) RBC 4.81 M/mm3 4.59 L M/mm3 (4.6-6.20) (4.6-6.20) Hgb 14.8 g/dL 14.1 g/dL (14.0-18.0) (14.0-18.0) Hct 45.3 % 44.9 % (42.0-52.0) (42.0-52.0) MCV 94.2 fl 97.8 fl (80-100) (80-100) MCH 30.8 pg 30.7 pg (26-34) (26-34) MCHC 32.7 g/dl 31.4 L g/dl (32-36) (32-36) RDW 13.9 % 14.3 % (11.5-14.5) (11.5-14.5) Plt Count 209 k/mm3 182 k/mm3 (150-375) (150-375) MPV 11.7 H fl 12.4 H fl (7.4-10.4) (7.4-10.4) Immature Gran % (Auto) 0.5 % 0.5 % (0-0.5) (0-0.5) Neut % (Auto) 80.4 H % 77.5 H % (45.5-73.1) (45.5-73.1) Lymph % (Auto) 8.7 L % 10.2 L % (18.3-44.2) (18.3-44.2) [place] % (Auto) 10.0 H % 11.4 H % (2.6-8.5) (2.6-8.5) Eos % (Auto) 0.1 % 0.1 % (0-4.4) (0-4.4) Baso % (Auto) 0.3 % 0.3 % (0.2-1.2) (0.2-1.2) Lymph # (Auto) 1.35 K/mm3 1.44 K/mm3 (0.9-3.2) (0.9-3.2) [place] # (Auto) 1.5 H K/mm3 1.6 H K/mm3 (0.1-0.6) (0.1-0.6) Eos # (Auto) 0.0 K/mm3 0.0 K/mm3 (0-0.3) (0-0.3) Baso # (Auto) 0.0 K/mm3 0.0 K/mm3 (0.0-0.1) (0.0-0.1) Abs Immat Gran (auto) 0.08 H K/mm3 0.07 H K/mm3 (0.00-0.031) (0.00-0.031) Absolute Neuts (auto) 12.4 H K/mm3 10.9 H K/mm3 (1.3-6.7) (1.3-6.7) Absolute Nucleated RBC 0.0 K/mm3 0.0 K/mm3 (0.0-0.012) (0.0-0.012) Nucleated RBC % 0.0 % 0.0 % (0.0-0.2) (0.0-0.2) Sodium 133 L mmol/L 136 L mmol/L (137-145) (137-145) Potassium 4.0 mmol/L 4.1 mmol/L (3.4-5.0) (3.4-5.0) Chloride 104 mmol/L 105 mmol/L (98-107) (98-107) Carbon Dioxide 20 L mmol/L 21 L mmol/L (22-30) (22-30) Anion Gap 9 mmol/L 10 mmol/L (8-16) (8-16) BUN 14 D mg/dL 14 mg/dL (9-20) (9-20) Creatinine 1.20 mg/dL 1.30 mg/dL (0.7-1.3) (0.7-1.3) Estim Creat Clear Calc 111 ml/min 101 ml/min Estimated GFR > 60 58 L (59 - ) (59 - ) Glucose 106 mg/dL 98 mg/dL (65-110) (65-110) Lactic Acid 0.8 mmol/L (0.7-2.0) Calcium 12.8 H mg/dL 12.7 H mg/dL (8.4-10.2) (8.4-10.2) Total Bilirubin 1.2 mg/dL (0.2-1.3) AST 20 U/L (17-59) ALT 19 U/L (6-50) Alkaline Phosphatase 80 U/L (38-126) Total Protein 8.0 g/dL (6.3-8.2) Albumin 4.2 g/dL (3.5-5.1) Lipase 23 U/L (23-300) Urine Color Yellow (Yellow) Urine Appearance Cloudy H (Clear) Urine pH 6.0 (5.0-9.0) Ur Specific [place] 1.029 (1.001-1.035) Urine Protein 2+ H mg/dL (Negative) Urine Gl
[2023-08-18] MEDS: LACTATED RINGERS 1,000 ML 30 ML IV CONT (08:00)
--- NOTE | 2023-08-18 08:02 | WPDURCON ---
Assessment and Plan Assessment and plan (1) Calculus of proximal right ureter: Code(s): N20.1 - Calculus of ureter Status: Acute Assessment and Plan: Proceed with cysto right retrograde right ureteral stent placement given his urinary tract infection. Stone will need to be managed at a later point time. (2) Epididymitis, left: Code(s): N45.1 - Epididymitis Status: Acute Assessment and Plan: Will need persistent antibiotics, scrotal elevation and ice pack. No evidence of abscess at this time. Urology Consult Note HPI Date Seen: 08/18/23 Time Seen: 08:02 Requesting Physician: Juan Manuel Olivo MD Primary Care Provider: Gerber Irby, Consult Narrative Reason for consult: Obstructing right ureteral calculus with fever Narrative: Robert Stroud is a 53 year old male who presented emergency room with a fever as well as right flank pain. Evaluation in the emergency room revealed a 6-7 mm obstructing right proximal stone. [place] white count [place] [address]. He had a fever of 100.4. Patient also has been dealing with a left epididymitis which he states is improving compared to his admission in July. He had a recent stone extraction by Dr. Sorensen in April of this past year also. Review of Systems Review of Systems: All systems reviewed & are unremarkable except as noted in HPI and below PMFSH Past Medical History Medical History Continuous tobacco abuse COPD (chronic obstructive pulmonary disease) borderline Gout Hepatic steatosis Noted on imaging Hyperlipidemia Hypertension Morbid obesity with BMI of 50.0-59.9, adult OPAL (obstructive sleep apnea) Bipap Surgical History Surgical History S/P cystoscopy with ureteral stent placement Social History Social History Social History: He is single. Patient is smoked a pack of cigarettes per day since he was in his mid 20s. He had drinks in moderation on the weekends. He denies illicit substance use. Code status: Full code Surrogate decision maker: Sister Smoking packs per day: 1 Smoking cigarettes per day: 20.0 Years smoked: 10 Smoking pack-years: 10.00 Smoking status: Current every day smoker Tobacco type: cigarettes Alcohol intake: current Drinks per week: 2 Alcohol use details: RARE Substance use: never Substance use type: does not use Do You Feel Safe in your Home?: Yes Lack of Transportation: No Lack of Food: Never True Current Housing: I Have Housing Concerned About Future Housing: No Difficulty Paying Gas/Electric Bills: No Difficulty Paying for Meds: No Currently Unemployed: No Education: Associate Degree Difficulty w/ Childcare or Family Care: No Living arrangements: with family Additional living arrangements comments: MOTHER Spiritual care concerns: No Meds Home Medications and Allergies Home Medications Medication Instructions Recorded Confirmed Type amlodipine 10 mg tablet 10 mg PO DAILY 05/01/23 08/17/23 History atorvastatin 20 mg tablet 20 mg PO HS 05/01/23 08/17/23 History carvedilol 12.5 mg tablet 12.5 mg PO BID 05/01/23 08/17/23 History lisinopril 40 mg tablet 40 mg PO DAILY 05/01/23 08/17/23 History hydrocodone 5 mg-acetaminophen 325 1 - 2 tablet PO Q6H PRN pain #20 05/11/23 08/17/23 Rx mg tablet tabs Allergies Allergy/AdvReac Type Severity Reaction Status Date / Time No Known Allergies Allergy Verified 07/14/23 21:54 Vital Signs Vital Signs - 24 hr 08/17/23 12:16 08/17/23 18:00 08/17/23 18:16 Temperature 37.8 C H Pulse Rate 112 H 105 H Respiratory Rate 20 29 H Blood Pressure 154/100 H Pulse Oximetry 96 95 94 Oxygen Delivery Room Air 08/17/23 18:31 08/17/23 18:45 08/17/23 19:02 Temperature Pulse Rate 103 H 104
--- NOTE | 2023-08-18 08:05 | WPDHPUPDATE1 ---
History and Physical Update Update Date/Time: 08/18/23 08:05 History and Physical has been reviewed, including an updated exam of the patient. There are NO changes in the patient's condition. Risks, benefits, and alternatives have been discussed and questions answered. Patient agrees to proceed with procedure. Proceed with cysto, right retrograde, right ureteral stent placement
[2023-08-18] MEDS: LIDOCAINE HCL 2% GEL UROJET 10 ML PKG MUCOUS MEM (08:22)
--- NOTE | 2023-08-18 08:57 | W.PM.PROC2 ---
Procedure Note - Detailed Date of Procedure 08/18/23 Pre-op Diagnosis Sepsis,UTI,R Ureteral Stone Post-op Diagnosis Same Procedure Performed Cysto, right retrograde pyelogram, right ureteroscopy with laser of stone, right ureteral stent placement 6 [place] contour Surgeon Jackson Heller MD Anesthesia General Description of Procedure Patient was taken to the operative suite correctly identified. Once anesthesia was obtained was placed in dorsal lithotomy position and prepped and draped usual sterile fashion. Twenty-two Boliv[place] scope inserted in the bladder. There were no tumors noted the right ureteral orifice was cannulated with a Sensor wire. The could not get past this impacted stone. A pyelogram was then performed and contrasted make its way past the. I advanced the ureteral catheter up to level stone and attempted to place an angled Glidewire past the stone. This also was unsuccessful. At this point the decision was made to laser the stone enough to pass a wire. Flexible ureteral scope was inserted into the orifice. Using a 200 micron fiber we fragmented the stone but again it was severely impacted and tortuous ureter. Once I was able to get past the stone a sensor wire was advanced. Six [place] contour stent was then placed with the proximal end coiled in the renal pelvis and the distal in the bladder. How much of the stone was fragmented is difficult to tell at this time. Some stone fragments were retrieved and sent for analysis. These had passed into the bladder. Patient is taken recovery room stable condition. Will plan on re-evaluating with a CT scan in the morning. Decision will need to be made once he gets over his infection whether to proceed with a 2nd ureteroscopy for any residual fragments. This completes dictation - please send a copy to my office. Estimated Blood Loss 0 Urine Output 850 Drains Yes Packing No Pathology Yes Complications No immediate complications Condition Stable Disposition PACU
[2023-08-18] MEDS: HYDROmorphone HCL INJ (*CRX) 1 MG/ML SYR 0.5 MG IV PUSH ×2 (09:25→09:32)
--- NOTE | 2023-08-18 10:04 | PC.NURSE ---
Returned to room from OR per hospital bed.
[2023-08-18] MEDS: carvediloL 12.5 MG TABLET PO ×2 (10:20→16:41)
[2023-08-18] MEDS: lisinopriL 20 MG TABLET 40 MG PO (10:20)
[2023-08-18] MEDS: HYDROcodone/acetaminophen (*CRX) 5-325 MG TABLET 1 TAB PO ×3 (10:20→20:49)
[2023-08-18] MEDS: amLODIPine BESYLATE 5 MG TABLET 10 MG PO (10:20)
[2023-08-18] MEDS: SODIUM CHLORIDE 0.9% IV 1,000 ML 125 ML IV CONT ×2 (13:26→22:38)
--- NOTE | 2023-08-18 14:14 | P.PNIM_ITS ---
Progress Note: A&P Assessment and Plan (1) Sepsis: Qualifiers: Sepsis acute organ dysfunction status: without acute organ dysfunction Sepsis type: sepsis due to unspecified organism Qualified Code(s): A41.9 - S epsis, unspecified organism Code(s): A41.9 - Sepsis, unspecified organism Status: Acute Assessment and Plan: Patient has sepsis due to obstructing right ureteral stone with associated hydronephrosis. * Urine cultures and blood cultures are pending. * Patient been placed on empiric antibiotic therapy with Rocephin. * Patient's urine cultures from last year grew out pansensitive E coli. * Urology has been consulted. (2) Acute UTI: Code(s): N39.0 - Urinary tract infection, site not specified Status: Acute Assessment and Plan: UTI Suspicious for infection. * Previous cultures revealed walsh sensitivity * Patient started on Rocephin. * Urine culture pending. * Adjust antibiotic therapy to culture results. (3) Calculus of proximal right ureter: Code(s): N20.1 - Calculus of ureter Status: Acute Assessment and Plan: * 5-[address] stone seen on CT abdomen and pelvis. * Urology consulted. * Patient underwent cystoscopy with right retrograde pyelogram, right ureteroscopy with laser of stone and stent placement. (4) Hypercalcemia: Code(s): E83.52 - Hypercalcemia Status: Acute Assessment and Plan: * Patient does have some hypercalcemia on labs likely due to dehydration. * Repeat Calcium of 12.7 * Order TSH, PTH, vitamin-D, calcium, phosphorus and Mag. (5) Continuous tobacco abuse: Code(s): Z72.0 - Tobacco use Status: Acute Assessment and Plan: Smoking cessation discussed. (6) OPLA (obstructive sleep apnea): Code(s): G47.33 - Obstructive sleep apnea (adult) (pediatric) Status: Acute Assessment and Plan: * Patient does have obstructive sleep apnea reports that his home BiPAP does not seem to be helping his symptoms. * Encouraged the patient to discuss this with his primary care physician and arrange for repeat polysomnogram as outpatient. * Order auto titrating BiPAP blood patient is hospitalized. (7) Morbid obesity with BMI of 50.0-59.9, adult: Code(s): E66.01 - Morbid (severe) obesity due to excess calories; Z68.43 - Body mass index [BMI] 50.0-59.9, adult Status: Acute Subjective Date/time seen: 08/18/23 14:14 Interval history: Patient having some right-sided abdominal pain postoperatively. Patient is urinating without difficulty and denies any urinary frequency, urgency or burning. He was having some urinary frequency prior to hospital admission. Discussed with patient about his high calcium he states that he has history hyperparathyroidism. States he does take a vitamin-D supplement. Continue IV antibiotics and wait for urine culture results. Exam Narrative: GENERAL: Comfortable, no acute distress, morbid obesity HENMT: moist mucous membranes EYES: EOM intact b/l NECK: no lymphadenopathy RESPIRATORY: clear to auscultation CARDIO: RRR GI: soft, nontender, bowel sounds present SKIN: no rashes EXTREMITIES: no edema, redness or tenderness Objective Data Vital Signs Vital Signs: Vital Signs - 24 hr 08/17/23 18:00 08/17/23 18:16 08/17/23 18:31 Temperature
--- NOTE | 2023-08-18 14:14 | PM.IMPN ---
Progress Note: A&P Assessment and Plan (1) Sepsis: Qualifiers: Sepsis acute organ dysfunction status: without acute organ dysfunction Sepsis type: sepsis due to unspecified organism Qualified Code(s): A41.9 - Sepsis, unspecified organism Code(s): A41.9 - Sepsis, unspecified organism Status: Acute Assessment and Plan: Patient has sepsis due to obstructing right ureteral stone with associated hydronephrosis. Urine cultures and blood cultures are pending. Patient been placed on empiric antibiotic therapy with Rocephin. Patient's urine cultures from last year grew out pansensitive E coli. Urology has been consulted. (2) Acute UTI: Code(s): N39.0 - Urinary tract infection, site not specified Status: Acute Assessment and Plan: UTI Suspicious for infection. Previous cultures revealed walsh sensitivity Patient started on Rocephin. Urine culture pending. Adjust antibiotic therapy to culture results. (3) Calculus of proximal right ureter: Code(s): N20.1 - Calculus of ureter Status: Acute Assessment and Plan: 5-[address] stone seen on CT abdomen and pelvis. Urology consulted. Patient underwent cystoscopy with right retrograde pyelogram, right ureteroscopy with laser of stone and stent placement. (4) Hypercalcemia: Code(s): E83.52 - Hypercalcemia Status: Acute Assessment and Plan: Patient does have some hypercalcemia on labs likely due to dehydration. Repeat Calcium of 12.7 Order TSH, PTH, vitamin-D, calcium, phosphorus and Mag. (5) Continuous tobacco abuse: Code(s): Z72.0 - Tobacco use Status: Acute Assessment and Plan: Smoking cessation discussed. (6) OPAL (obstructive sleep apnea): Code(s): G47.33 - Obstructive sleep apnea (adult) (pediatric) Status: Acute Assessment and Plan: Patient does have obstructive sleep apnea reports that his home BiPAP does not seem to be helping his symptoms. Encouraged the patient to discuss this with his primary care physician and arrange for repeat polysomnogram as outpatient. Order auto titrating BiPAP blood patient is hospitalized. (7) Morbid obesity with BMI of 50.0-59.9, adult: Code(s): E66.01 - Morbid (severe) obesity due to excess calories; Z68.43 - Body mass index [BMI] 50.0-59.9, adult Status: Acute Subjective Date/time seen: 08/18/23 14:14 Interval history: Patient having some right-sided abdominal pain postoperatively. Patient is urinating without difficulty and denies any urinary frequency, urgency or burning. He was having some urinary frequency prior to hospital admission. Discussed with patient about his high calcium he states that he has history hyperparathyroidism. States he does take a vitamin-D supplement. Continue IV antibiotics and wait for urine culture results. Exam Narrative: GENERAL: Comfortable, no acute distress, morbid obesity HENMT: moist mucous membranes EYES: EOM intact b/l NECK: no lymphadenopathy RESPIRATORY: clear to auscultation CARDIO: RRR GI: soft, nontender, bowel sounds present SKIN: no rashes EXTREMITIES: no edema, redness or tenderness Objective Data Vital Signs Vital Signs: Vital Signs - 24 hr 08/17/23 18:00 08/17/23 18:16 08/17/23 18:31 Temperature Pulse Rate 105 H 103 H Respiratory Rate 29 H 21 H Blood Pressure Pulse Oximetry 95 94 95 Oxygen Delivery Oxygen Flow Rate 08/17/23 18:45 08/17/23 19:02 08/17/23 19:19 Temperature Pulse Rate 104 H 105 H 106 H Respiratory Rate 20 7 L 24 H Blood Pressure Pulse Oximetry 91 94 Oxygen Delivery Oxygen Flow Rate 08/17/23 19:59 08/17/23 22:55 08/18/23 00:00 Temperature 99.5 F 102.1 F H Pulse Rate 106 H 105 H Respiratory Rate 18 Blood Pressure 131/74 Pulse Oximetry 92 Oxygen Delivery Oxygen Flow Rate 08/18/23 04:00 02
[2023-08-18] MEDS: HYDROmorphone HCL INJ (*CRX) 1 MG/ML SYR IV PUSH (16:43)
[2023-08-18] MEDS: ATORVASTATIN 20 MG TABLET PO (20:40)
[2023-08-18] MEDS: WATER FOR IRRIGATION, STERILE 1,000 ML BOTTLE 1000 ML (22:39)
[2023-08-19] VITALS (12 sets, daily range): BP systolic 113–138; BP diastolic 57–76; PULSE 71–89; RESP 18–20; TEMP 35.7–37.9; O2SAT 92–96
[2023-08-19] MEDS: ACETAMINOPHEN 500 MG TABLET 1000 MG PO ×2 (01:24→14:57)
[2023-08-19 07:22] LABS: Basophils Percent Auto 0.3 % (0.2-1.2); Eosinophils Absolute Auto 0.1 K/mm3 (0-0.3); Eosinophils Percent Auto 0.7 % (0-4.4); Hematocrit 42.6 % (42.0-52.0); Hemoglobin 13.4 g/dL (14.0-18.0); Immature Granulocyte Absolute 0.04 K/mm3 (0.00-0.031); Immature Granulocyte Percent A 0.4 % (0-0.5); Lymphocytes Absolute Auto 1.42 K/mm3 (0.9-3.2); Mean Corpuscular HGB Conc 31.5 g/dl (32-36); Mean Corpuscular Hemoglobin 30.7 pg (26-34); Mean Corpuscular Volume 97.7 fl (80-100); Mean Platelet Volume 12.2 fl (7.4-10.4); Monocytes Absolute Auto 1.2 K/mm3 (0.1-0.6); Monocytes Percent Auto 12.2 % (2.6-8.5); Neutrophils Absolute Auto 7.4 K/mm3 (1.3-6.7); Neutrophils Percent Auto 72.4 % (45.5-73.1); Platelet Count Result 199 k/mm3 (150-375); Red Blood Count 4.36 M/mm3 (4.6-6.20); Red Cell Distribution Width 14.3 % (11.5-14.5); White Blood Count 10.2 K/mm3 (4.5-10.0)
[2023-08-19 07:27] LABS: Alanine Aminotransferase 27 U/L (6-50); Albumin Level 3.5 g/dL (3.5-5.1); Alkaline Phosphatase 72 U/L (38-126); Anion Gap 5 mmol/L (8-16); Aspartate Amino Transferase 27 U/L (17-59); Bilirubin,Total 0.9 mg/dL (0.2-1.3); Blood Urea Nitrogen 19 mg/dL (9-20); Calcium 12.8 mg/dL (8.4-10.2); Carbon Dioxide 24 mmol/L (22-30); Chloride 107 mmol/L (98-107); Estimated CRCL calculation 109 ml/min; Estimated Glomerular Filt Rate > 60; Glucose 89 mg/dL (65-110); Magnesium 2.1 mg/dL (1.6-2.3); Phosphorus 2.8 mg/dL (2.5-4.5); Sodium 136 mmol/L (137-145)
[2023-08-19 07:32] LABS: Parathyroid Intact 557.5 pg/mL (7.5-53.5)
[2023-08-19] MEDS: amLODIPine BESYLATE 5 MG TABLET 10 MG PO (07:32)
[2023-08-19] MEDS: carvediloL 12.5 MG TABLET PO ×2 (07:32→16:29)
[2023-08-19] MEDS: ENOXAPARIN 40 MG/0.4 ML SYRINGE SUB-Q (07:33)
[2023-08-19] MEDS: lisinopriL 20 MG TABLET 40 MG PO (07:33)
[2023-08-19 07:47] LABS: Potassium 4.2 mmol/L (3.4-5.0)
[2023-08-19 07:56] LABS: Thyroid Stimulating Hormone Reflex 0.661 uIU/mL (0.465-4.68)
[2023-08-19] MEDS: SODIUM CHLORIDE 0.9% IV 1,000 ML 125 ML IV CONT (10:25)
--- NOTE | 2023-08-19 10:48 | PC.NURSE ---
To Cat Scan per stretcher.
--- NOTE | 2023-08-19 11:04 | PC.NURSE ---
Returned to room from Cat Scan per stretcher.
--- NOTE | 2023-08-19 13:34 | P.PNIM_ITS ---
Progress Note: A&P Assessment and Plan (1) Sepsis: Qualifiers: Sepsis acute organ dysfunction status: without acute organ dysfunction Sepsis type: sepsis due to unspecified organism Qualified Code(s): A41.9 - S epsis, unspecified organism Code(s): A41.9 - Sepsis, unspecified organism Status: Acute Assessment and Plan: Patient has sepsis due to obstructing right ureteral stone with associated hydronephrosis. * Urine culture positive for E. coli; Sensitivities pending * Blood cultures no growth to date. * Patient been placed on empiric antibiotic therapy with Rocephin. * Patient's urine cultures from last year grew out pansensitive E coli. * Urology has been consulted. * 08/19/22 patient running fevers up until 2:00 a.m. Will continue to monitor. Waiting for sensitivities. (2) Acute UTI: Code(s): N39.0 - Urinary tract infection, site not specified Status: Acute Assessment and Plan: UTI Suspicious for infection. * Previous cultures revealed walsh sensitivity * Patient started on Rocephin. * Urine culture positive for E coli, sensitivities pending. * Adjust antibiotic therapy to culture results. (3) Calculus of proximal right ureter: Code(s): N20.1 - Calculus of ureter Status: Acute Assessment and Plan: * 5-[address] seen on CT abdomen and pelvis. * Urology consulted. * Patient underwent cystoscopy with right retrograde pyelogram, right ur eteroscopy with laser of stone and stent placement. (4) Hypercalcemia: Code(s): E83.52 - Hypercalcemia Status: Acute Assessment and Plan: * Patient does have some hypercalcemia on labs likely due to dehydration. * Repeat Calcium of 12.7 * Order TSH, PTH, vitamin-D, calcium, phosphorus and Mag. (5) Continuous tobacco abuse: Code(s): Z72.0 - Tobacco use Status: Acute Assessment and Plan: Smoking cessation discussed. (6) OPAL (obstructive sleep apnea): Code(s): G47.33 - Obstructive sleep apnea (adult) (pediatric) Status: Acute Assessment and Plan: * Patient does have obstructive sleep apnea reports that his home BiPAP does not seem to be helping his symptoms. * Encouraged the patient to discuss this with his primary care physician and arrange for repeat polysomnogram as outpatient. * Order auto titrating BiPAP blood patient is hospitalized. (7) Morbid obesity with BMI of 50.0-59.9, adult: Code(s): E66.01 - Morbid (severe) obesity due to excess calories; Z68.43 - Body mass index [BMI] 50.0-59.9, adult Status: Acute Subjective Date/time seen: 08/19/23 13:34 Interval history: Patient states that he is feeling better today and has mild pain in his right abdomen. He was running fevers all through the night. Due to the degree of illness patient is experiencing would feel more comfortable keeping him until urine sensitivities have returned. His CT abdomen pelvis has not been read. Patient has not been seen by Urology yet today. Would like urology clear patient prior to discharge. Exam Narrative: GENERAL: Comfortable, no acute distress, morbid obesity HENMT: moist mucous membranes EYES: EOM intact b/l NECK: no lymphadenopathy RESPIRATORY: clear to auscultation CARDIO: RRR GI: soft, nontender, bowel sounds present SKIN: no rashes EXTREMITIES: no edema, redness or tenderness Objective Da
--- NOTE | 2023-08-19 13:34 | PM.IMPN ---
Progress Note: A&P Assessment and Plan (1) Sepsis: Qualifiers: Sepsis acute organ dysfunction status: without acute organ dysfunction Sepsis type: sepsis due to unspecified organism Qualified Code(s): A41.9 - Sepsis, unspecified organism Code(s): A41.9 - Sepsis, unspecified organism Status: Acute Assessment and Plan: Patient has sepsis due to obstructing right ureteral stone with associated hydronephrosis. Urine culture positive for E. coli; Sensitivities pending Blood cultures no growth to date. Patient been placed on empiric antibiotic therapy with Rocephin. Patient's urine cultures from last year grew out pansensitive E coli. Urology has been consulted. 08/19/22 patient running fevers up until 2:00 a.m. Will continue to monitor. Waiting for sensitivities. (2) Acute UTI: Code(s): N39.0 - Urinary tract infection, site not specified Status: Acute Assessment and Plan: UTI Suspicious for infection. Previous cultures revealed walsh sensitivity Patient started on Rocephin. Urine culture positive for E coli, sensitivities pending. Adjust antibiotic therapy to culture results. (3) Calculus of proximal right ureter: Code(s): N20.1 - Calculus of ureter Status: Acute Assessment and Plan: 5-[address] seen on CT abdomen and pelvis. Urology consulted. Patient underwent cystoscopy with right retrograde pyelogram, right ureteroscopy with laser of stone and stent placement. (4) Hypercalcemia: Code(s): E83.52 - Hypercalcemia Status: Acute Assessment and Plan: Patient does have some hypercalcemia on labs likely due to dehydration. Repeat Calcium of 12.7 Order TSH, PTH, vitamin-D, calcium, phosphorus and Mag. (5) Continuous tobacco abuse: Code(s): Z72.0 - Tobacco use Status: Acute Assessment and Plan: Smoking cessation discussed. (6) OPAL (obstructive sleep apnea): Code(s): G47.33 - Obstructive sleep apnea (adult) (pediatric) Status: Acute Assessment and Plan: Patient does have obstructive sleep apnea reports that his home BiPAP does not seem to be helping his symptoms. Encouraged the patient to discuss this with his primary care physician and arrange for repeat polysomnogram as outpatient. Order auto titrating BiPAP blood patient is hospitalized. (7) Morbid obesity with BMI of 50.0-59.9, adult: Code(s): E66.01 - Morbid (severe) obesity due to excess calories; Z68.43 - Body mass index [BMI] 50.0-59.9, adult Status: Acute Subjective Date/time seen: 08/19/23 13:34 Interval history: Patient states that he is feeling better today and has mild pain in his right abdomen. He was running fevers all through the night. Due to the degree of illness patient is experiencing would feel more comfortable keeping him until urine sensitivities have returned. His CT abdomen pelvis has not been read. Patient has not been seen by Urology yet today. Would like urology clear patient prior to discharge. Exam Narrative: GENERAL: Comfortable, no acute distress, morbid obesity HENMT: moist mucous membranes EYES: EOM intact b/l NECK: no lymphadenopathy RESPIRATORY: clear to auscultation CARDIO: RRR GI: soft, nontender, bowel sounds present SKIN: no rashes EXTREMITIES: no edema, redness or tenderness Objective Data Vital Signs Vital Signs: Vital Signs - 24 hr 08/18/23 14:55 08/18/23 16:00 08/18/23 16:41 Temperature Pulse Rate 98 98 Respiratory Rate Blood Pressure Pulse Oximetry 85 L Oxygen Delivery Room Air 08/18/23 16:44 08/18/23 16:00 08/18/23 17:50 Temperature 101 F H 101.1 F H 100.3 F H Pulse Rate 93 Respiratory Rate 22 H Blood Pressure 145/77 H Pulse Oximetry 93 Oxygen Delivery 08/18/23 22:15 08/19/23 01:24 08/19/23 01:00 Temperature 97.1 F L 100.3 F H 100.2 F H Puls
[2023-08-19] MEDS: ATORVASTATIN 20 MG TABLET PO (20:39)
[2023-08-20] VITALS (8 sets, daily range): BP systolic 132–136; BP diastolic 75–80; PULSE 62–75; RESP 16–20; TEMP 35.9–37.2; O2SAT 93–97
[2023-08-20 06:51] LABS: Hematocrit 40.8 % (42.0-52.0); Hemoglobin 12.9 g/dL (14.0-18.0); Mean Corpuscular HGB Conc 31.6 g/dl (32-36); Mean Corpuscular Volume 98.1 fl (80-100); Mean Platelet Volume 11.5 fl (7.4-10.4); Platelet Count Result 209 k/mm3 (150-375); Red Blood Count 4.16 M/mm3 (4.6-6.20); Red Cell Distribution Width 14.1 % (11.5-14.5); White Blood Count 7.1 K/mm3 (4.5-10.0)
[2023-08-20 07:01] LABS: Anion Gap 4 mmol/L (8-16); Blood Urea Nitrogen 17 mg/dL (9-20); Calcium 12.8 mg/dL (8.4-10.2); Carbon Dioxide 25 mmol/L (22-30); Chloride 108 mmol/L (98-107); Estimated CRCL calculation 109 ml/min; Estimated Glomerular Filt Rate > 60; Glucose 95 mg/dL (65-110); Potassium 4.2 mmol/L (3.4-5.0); Sodium 137 mmol/L (137-145)
--- NOTE | 2023-08-20 08:57 | WPDUROPN2 ---
Progress Note: A&P Assessment and Plan (1) Calculus of proximal right ureter: Code(s): N20.1 - Calculus of ureter Status: Acute Assessment and Plan: Underwent right ureteroscopy with laser lithotripsy and right ureteral stent placement on 08/18/[address] Heller. Tolerated procedure well. Repeat CT from 08/19/2023 reviewed with presence of 3 mm proximal right ureteral stone. Consider repeat ureteroscopy as an outpatient if unable to pass residual fragment. Continue to strain all urine (2) Acute UTI: Code(s): N39.0 - Urinary tract infection, site not specified Status: Acute Assessment and Plan: Urine culture with growth of E coli. Continue empiric antibiotics while awaiting final susceptibility report. He has been afebrile for 24 hours and vital signs are stable. (3) Epididymitis, left: Code(s): N45.1 - Epididymitis Status: Acute Assessment and Plan: Onset 06/2023. Has been treated appropriately with antibiotics. Repeat scrotal ultrasound from 08/17/2023 reviewed which shows normal bilateral epididymis with evidence of small-moderate left hydrocele. Supportive care to include scrotal evaluation and ice pack. Subjective Subjective Date/Time Seen: 08/20/23 08:57 Interval history: [place] feeling well today. He denies flank pain or back pain. Endorses mild dysuria, though states this is improving. States his urine is dark. Denies gross hematuria. He is straining his urine but has not passed any stones. He reports that his left testicular pain has resolved still endorses significant left testicular swelling. He denies nausea, vomiting, fever, or chills. He has been able to tolerate his diet. He is afebrile and vital signs are stable. Creatinine is stable at 1.2. WBC 7.1. Review of Systems Review of Systems: All systems reviewed & are unremarkable except as noted in HPI and below Exam Narrative: General: Awake, alert, comfortable, no acute distress HEENT: Normocephalic, atraumatic, sclerae anicteric Respiratory: Normal respiratory effort, no accessory muscle use Abdomen: Nondistended, soft, nontender Skin: Normal coloration, warm and dry Neurologic: No focal neuro deficits noted Psychiatric: Appropriate mood and affect, judgment and insight intact Objective Data Vital Signs Vital Signs: Vital Signs - 24 hr 08/19/23 12:00 02/04/24 12:00 08/19/23 16:00 Temperature 99.0 F Pulse Rate 71 78 72 Respiratory Rate 20 Blood Pressure 134/62 Pulse Oximetry 93 Oxygen Delivery 08/19/23 16:29 08/19/23 20:28 08/19/23 20:00 Temperature 98.5 F Pulse Rate 74 71 Respiratory Rate 18 Blood Pressure 138/76 Pulse Oximetry 96 Oxygen Delivery Room Air 08/19/23 20:00 08/19/23 23:35 08/20/23 00:00 Temperature Pulse Rate 71 74 Respiratory Rate Blood Pressure Pulse Oximetry Oxygen Delivery Autopap 08/20/23 00:00 08/20/23 01:54 08/20/23 04:00 Temperature 98.4 F Pulse Rate 73 68 Respiratory Rate 18 Blood Pressure 136/78 Pulse Oximetry 97 Oxygen Delivery Autopap 08/20/23 04:00 08/20/23 08:32 08/20/23 08:00 Temperature 96.7 F L 98.9 F Pulse Rate 72 65 Respiratory Rate 20 18 Blood Pressure 135/80 134/75 Pulse Oximetry 96 97 93 Oxygen Delivery Room Air Intake/Output Intake/Output: Intake & Output 08/17/23 08/18/23 08/19/23 08/20/23 23:59 23:59 23:59 23:59 Intake Total 1050 3250 2554 240 Output Total 700 3970 2600 6237 Balance 350 -1175 -46 -1035 Meds/Results Medications: Active Medications Generic Name Dose Route Start Last Admin Trade Name Freq PRN Reason Stop Dose Admin Acetaminophen 1,000 mg 08/18/23 00:15 08/19/23 14:57 Acetaminophen 500 Mg Tablet PO 1,000 mg Q6H PRN Administration Mild Pain (1-3) or Fever Hydrocodone Bitart/Acetaminophen 1 tab 08/18/23 01:54 08/18/23 20:49 Hydrocodone/Acetaminophen (*Crx) 5-325 Mg Table
[2023-08-20] MEDS: carvediloL 12.5 MG TABLET PO (09:03)
[2023-08-20] MEDS: amLODIPine BESYLATE 5 MG TABLET 10 MG PO (09:03)
[2023-08-20] MEDS: lisinopriL 20 MG TABLET 40 MG PO (09:04)
[2023-08-20] MEDS: ENOXAPARIN 40 MG/0.4 ML SYRINGE SUB-Q (09:04)
--- NOTE | 2023-08-20 12:56 | PM.DS ---
DS: Admitting Diagnosis Discharge Date 08/20/23 Admitting Diagnosis ureteral stone, UTI DS: Discharge Diagnosis Discharge Diagnosis (1) Sepsis: Qualifiers: Sepsis acute organ dysfunction status: without acute organ dysfunction Sepsis type: sepsis due to unspecified organism Qualified Code(s): A41.9 - Sepsis, unspecified organism Code(s): A41.9 - Sepsis, unspecified organism Status: Acute (2) Acute UTI: Code(s): N39.0 - Urinary tract infection, site not specified Status: Acute (3) Calculus of proximal right ureter: Code(s): N20.1 - Calculus of ureter Status: Acute (4) Hypercalcemia: Code(s): E83.52 - Hypercalcemia Status: Acute (5) Continuous tobacco abuse: Code(s): Z72.0 - Tobacco use Status: Acute (6) OPAL (obstructive sleep apnea): Code(s): G47.33 - Obstructive sleep apnea (adult) (pediatric) Status: Acute (7) Morbid obesity with BMI of 50.0-59.9, adult: Code(s): E66.01 - Morbid (severe) obesity due to excess calories; Z68.43 - Body mass index [BMI] 50.0-59.9, adult Status: Acute DS: Summary Hospital Course Hospital Course: This a 53-year-old male with a past medical history of multiple kidney stones, recent epididymitis, central hypertension and morbid obesity that presented to the ED on 08/17/2023 after developing right side abdominal pain and right flank pain for 3 days. He had developed fevers at home with a T-max at greater than 101. Patient had a crease urinary frequency with decreased urine output as well as dark urine. In the ED patient was noted to have a temperature of 102.1. CT abdomen pelvis showed bilateral nephrolithiasis with an obstructing 5-6 mm stone in the right proximal ureter and mild to moderate right hydronephrosis. Urine was consistent with a UTI. Patient was started on IV antibiotics. Patient underwent right retrograde pyelogram, right ureteroscopy with laser of the stone and right ureteral stent placement on 08/18/2023. Urine culture came back positive for E coli pansensitive. Patient was transition to p.o. cefdinir. Will discharge patient home with p.o. antibiotics. Labs and vital signs are stable and he is medically clear for discharge at this time. Time Spent with Patient Time attestation: Total time spent providing and/or coordinating discharge services: Exam Narrative: GENERAL: Comfortable, no acute distress, morbid obesity HENMT: moist mucous membranes EYES: EOM intact b/l NECK: no lymphadenopathy RESPIRATORY: clear to auscultation CARDIO: RRR GI: soft, nontender, bowel sounds present SKIN: no rashes EXTREMITIES: no edema, redness or tenderness DS: Data Data Completed and Pending Pending studies at discharge: Pending at discharge 08/18/23 08:57 Surgical [PTH] Routine Labs on day of discharge: Labs from last 24 hours 08/20/23 06:40 WBC 7.1 RBC 4.16 L Hgb 12.9 L Hct 40.8 L MCV 98.1 MCH 31.0 MCHC 31.6 L RDW 14.1 Plt Count 209 MPV 11.5 H Sodium 137 Potassium 4.2 Chloride 108 H Carbon Dioxide 25 Anion Gap 4 L BUN 17 Creatinine 1.20 Estim Creat Clear Calc 109 Estimated GFR > 60 Glucose 95 Calcium 12.8 H Preliminary micro results at discharge 08/17/23 19:53 Blood Culture - Preliminary Blood 08/17/23 19:53 Blood Culture - Preliminary Blood Discharge Plan Discharge Attending physician on discharge: Jazz Gibson Consulting providers: Jackson Heller; Tomy Ellis Discharging Clinician: Marley Pitt Patient Disposition: Home, Self-Care Activity: as tolerated Diet: diabetic Discharge Instructions: Medications: Cefdinir 300 mg twice daily for 6 days. Next dose tonight. Discharge instructions: Return to the emergency department if: Nausea vomiting, fever, difficulty urinating, blood in the urine, severe pain May use Tylenol, ibuprofen or Advil for increased pain.
[2023-08-20] MEDS: CEFDINIR 300 MG CAPSULE PO (13:34)
[2023-08-23 10:52] LABS: Vitamin D 1,25 (OH)2 Total 62 pg/mL (18-72); Vitamin D2 1,25 (OH)2 <8 pg/mL; Vitamin D3 1,25 (OH)2 62 pg/mL
== END 2023-08-20 14:10 | disposition home or self-care (01) | DRG 659 ==
LOC: ANHED 21:47 → ANH3MEDSUR 22:10
PROVIDERS: Internal Medicine; Urology; Admitting Provider Family Medicine; Emergency Provider Physician Assistant; PCP Family Medicine Sports Medicine; Visit Provider Internal Medicine Critical Care Medicine
PROC: 0T768DZ Dilation of Right Ureter with Intraluminal Device, Via Natural or Artificial Opening Endoscopic (ICD-10-PCS; CPT 52352; principal; 2023-08-18 08:00)
DX: N13.2 Hydronephrosis with renal and ureteral calculous obstruction (principal); A41.9 Sepsis, unspecified organism; Z68.43 Body mass index [BMI] 50.0-59.9, adult; N39.0 Urinary tract infection, site not specified; B96.20 Unspecified Escherichia coli [E. coli] as the cause of diseases classified elsewhere; E66.01 Morbid (severe) obesity due to excess calories; E78.5 Hyperlipidemia, unspecified; E83.52 Hypercalcemia; F17.210 Nicotine dependence, cigarettes, uncomplicated; G47.33 Obstructive sleep apnea (adult) (pediatric); I10 Essential (primary) hypertension; J44.9 Chronic obstructive pulmonary disease, unspecified; K76.0 Fatty (change of) liver, not elsewhere classified; N45.1 Epididymitis; M10.9 Gout, unspecified; Z99.89 Dependence on other enabling machines and devices
CPT/HCPCS: 36415; 74018; 74176; 74177; 74420; 76870; 80048; 80053; 81001; 82365; 82652; 83605; 83690; 83735; 83970; 84100; 84443; 85025; 85027; 87040; 87086; 87186; 88300; 93976; 96361; 96365; 96375; 99285; A9270; C1758; C1769; C2617; J0696; J1170; J1650; J2250; J2405; J2704; J3010; J7030; J7120; Q9966; Q9967

== ENCOUNTER 2023-09-13 00:24 | Day surgery (SDC) | payer BC, SELFPAY ==
[2023-09-05 15:37] VITALS: BMI 51.3
--- NOTE | 2023-09-05 15:51 | PC.NURSE ---
Report to the Outpatient Waiting Room, entrance under the green pavilion located off [facility], at time 0730 on date 09/13/23. Planned Procedure Time: 0930. Time changes happen often and if your time is changed the preop area will call you the afternoon before. - You and your visitor will be asked to self-screen and do not enter if you have any COVID symptoms. - A mask is optional within the hospital at this time. Patients may have clear liquids (water, carbonated beverages, clear teas, apple juice) until 3 hours prior to surgery with a maximum of 20 ounces. - No food from midnight until time of surgery Take the following medications with a SIP of water the morning of surgery: AMLODIPINE, CARVEDILOL, LEVOFLOXACIN DO NOT STOP ANY OF YOUR OTHER PRESCRIPTION MEDICATIONS PRIOR TO SURGERY ?EXCEPT THE FOLLOWING Medications to discontinue per physician: N/A Date to take last dose: N/A Please no make-up, nail occitan, hairspray, perfume, deodorant, or body powder the day of surgery. No jewelry (including any body piercings) or valuables the day of surgery, leave them at home. Please take a shower or bath the night before, or the morning of, surgery with an antibacterial soap. Wear comfortable, loose fitting clothing. - Jewelry must be removed prior to entering the operating room. Rings and piercings that are not removed may be cut off. - The hospital will not accept responsibility for valuables. - Please leave all valuables, including medications, at home the day of surgery. If you are going home after surgery, a licensed star route mail driver must drive you home. - NO public transportation without another adult if you receive anesthesia. - We recommend that an adult stay with you for 24 hours following discharge. - We also recommend that you do not drive, make important decision, drink alcoholic beverages, or take any drugs that were not prescribed by your health care provider for at least 24 hours after your discharge time. Follow any additional instructions given to you from your surgeon. If you or anyone in your household have experienced Covid symptoms in the past week, please notify your surgeon or the nurse liaison at the phone number below for possible testing. Telephone instructions given to PT - JUAN DANG and asked if any additional questions and then verbalized understanding. Patient advised to call surgeon office or pre surgery nurse liaison [phone] if any additional questions.
--- NOTE | ~2023-09-13 | XR_ITS ---
EXAMINATION: XR retrograde pyelo w/stent BI DATE: 09/13/2023 11:18 INDICATION: Kidney stones. TECHNIQUE: 141 intraoperative fluoroscopic views of the abdomen and pelvis were obtained. I was not p resent. Fluoroscopy exposure time was 109 seconds. COMPARISON: CT abdomen and pelvis 08/19/2023 FINDINGS: The initial image demonstrates a right internal ureteral stent in expected position. The ri ght-sided retrograde pyelogram demonstrates hydronephrosis. The left-sided retrograde pyelogram is no rmal. The final images demonstrate new bilateral internal ureteral stents in expected positions. IMPRESSION: 1. Bilateral internal ureteral stents in expected positions. Reviewed, dictated and finalized at location A. [employer]
--- NOTE | 2023-09-13 06:20 | WPDHPUPDATE1 ---
History and Physical Update Update Date/Time: 09/13/23 06:20 History and Physical has been reviewed, including an updated exam of the patient. There are NO changes in the patient's condition. Risks, benefits, and alternatives have been discussed and questions answered. Patient agrees to proceed with procedure.
--- NOTE | 2023-09-13 09:09 | WPDANESEPPF ---
Anes - Initial Pre Proc Eval Procedure: Operation Date: 09/13/23 10:00 Proposed Procedures p Cystoscopy, Bilateral Ureteroscopy with Stone Extraction, Possible Laser Lithotripsy, Possible Bilateral Stent Placement, Possible Bilateral Retrograde Pyelogram - Layton Carreon MD Date/Time: 09/13/23 09:09 Surgeon: Layton Carreon MD Pre Op Diagnosis: right ureteral stone, left kidney stone Patient Data Age: 53 Gender: M Height: 1.88 m Weight: 181.45 kg Allergies Allergy/AdvReac Type Severity Reaction Status Date / Time No Known Allergies Allergy Verified 09/05/23 15:36 Home Medications Medication Instructions Recorded Confirmed Type amlodipine 10 mg tablet 10 mg PO DAILY 05/01/23 09/05/23 History atorvastatin 20 mg tablet 20 mg PO HS 05/01/23 09/05/23 History carvedilol 12.5 mg tablet 12.5 mg PO BID 05/01/23 09/05/23 History lisinopril 40 mg tablet 40 mg PO DAILY 05/01/23 09/05/23 History levofloxacin 750 mg tablet 750 mg PO DAILY 09/05/23 09/05/23 History Patient hx anesthesia problems: none Family hx anesthesia problems: none Results Review: All pre-operative results and documents have been reviewed as part of the pre-operative evaluation. [facility] Past Medical History Medical History Continuous tobacco abuse COPD (chronic obstructive pulmonary disease) borderline Gout Hepatic steatosis Noted on imaging Hyperlipidemia Hypertension Morbid obesity with BMI of 50.0-59.9, adult OPAL (obstructive sleep apnea) Bipap Surgical History Surgical History S/P cystoscopy with ureteral stent placement Social History Social History Social History: He is single. Patient is smoked a pack of cigarettes per day since he was in his mid 20s. He had drinks in moderation on the weekends. He denies illicit substance use. Code status: Full code Surrogate decision maker: Sister Smoking packs per day: 1 Smoking cigarettes per day: 20.0 Years smoked: 25 Smoking pack-years: 25.00 Smoking status: Current every day smoker Tobacco type: cigarettes Alcohol intake: current Drinks per week: 4 Alcohol use details: RARE Substance use: never Substance use type: does not use Do You Feel Safe in your Home?: Yes Lack of Transportation: No Lack of Food: Never True Current Housing: I Have Housing Concerned About Future Housing: No Difficulty Paying Gas/Electric Bills: No Difficulty Paying for Meds: No Currently Unemployed: No Education: Associate Degree Difficulty w/ Childcare or Family Care: No Living arrangements: with family Additional living arrangements comments: MOTHER Spiritual care concerns: No Anes - Eval Final PreProcedure Day of Procedure 09/13/23 09:09 Patient weight: morbidly obese Heart: regular rate and rhythm Lungs: clear to auscultation Airway: Mallampati scale class II Neurological: alert and oriented Last oral intake: >/= 8 hours ASA classification: IV Emergent: no Anesthetic plan: proceed Anesthesia type and monitoring: general LMA and standard monitoring Results Review: All pre-operative results and documents have been reviewed as part of the pre-operative evaluation. Informed Consent: The patient's anesthetic plan and its attendant risks and benefits were discussed with the patient/family/POA. Questions were solicited and answers provided to the satisfaction of the patient/family/POA.
[2023-09-13 09:18] VITALS: BP 154/96; PULSE 76; RESP 14; TEMP 35.9; O2SAT 96
[2023-09-13] MEDS: LACTATED RINGERS 1,000 ML 30 ML IV CONT ×2 (09:21→11:25)
[2023-09-13] MEDS: ceFAZolin 3 GM/D5W 100 ML 100 ML IVPB (10:02)
[2023-09-13] MEDS: LIDOCAINE HCL 2% GEL UROJET 10 ML PKG MUCOUS MEM (10:27)
--- NOTE | 2023-09-13 11:20 | W.PM.PROC2 ---
Procedure Note - Detailed Date of Procedure 09/13/23 Pre-op Diagnosis right ureteral stone, left kidney stone Post-op Diagnosis Same Procedure Performed cystoscopy, bilateral ureteroscopy with laser lithotripsy stone extraction, bilateral ureteral stent placement, bilateral retrograde pyelography, right ureteral stent removal Surgeon Layton Carreon MD Anesthesia General Findings Description of Procedure Patient brought to the operative suite was prepped and draped in routine sterile fashion while in a dorsal lithotomy position after the uneventful induction of a general LMA anesthetic. Cystoscopy was undertaken with a 21 F rigid cystoscope. He has no urethral stricture and only moderate prostatic hyperplasia. Bladder mucosa is normal without hyperemia. Other than his right ureteral stent there was no intravesical foreign body or neoplasm. 0.035 in glidewire was advanced into his left renal pelvis under fluoroscopy. Distal ureter was dilated with an 8 F 10 F dilator and then a 10/13 F ureteral access sheath was placed. Left retrograde pyelography is performed through a 7.5 F digital ureteral scope so as to identify all calices for inspection. He has 3 moderate-sized stones in his left kidney which were fractured with a 273 micron holmium laser fiber using a dusting and popcorn technique. All fragments over 2 mm were extracted with a 1.9 F disposable stone basket. A 4.8 F left ureteral stent is placed with appropriate positioning. The tip of the right indwelling ureteral stent is then grasped. A ureteral access sheath was then placed on the right in a similar fashion. His 3 mm right ureteral stone is still in a similar position. It is extracted with a 1.9 F disposable stone basket with ease. The 2nd stone in his right kidney required laser lithotripsy with the same laser fiber for extracting the pieces. 4.8 F stent was replaced on the right side. Scopes and wires removed he was taken recovery in good condition Drains No Packing No Pathology Yes Complications No immediate complications Condition Stable
[2023-09-13 11:25] VITALS: BP 151/94; PULSE 83; RESP 16; TEMP 36.4; O2SAT 94
[2023-09-13 11:40] VITALS: BP 136/78; PULSE 72; RESP 18; O2SAT 100
[2023-09-13 11:55] VITALS: BP 123/86; PULSE 70; RESP 11; O2SAT 99
[2023-09-13 12:15] VITALS: BP 142/76; PULSE 63; RESP 16
[2023-09-13 12:45] VITALS: BP 148/78; PULSE 75; RESP 16
== END 2023-09-13 12:50 | disposition home or self-care (01) ==
PROVIDERS: PCP Family Medicine Sports Medicine; Visit Provider Urology
PROC: (CPT 52352; principal; 2023-09-13 10:00)
DX: N20.2 Calculus of kidney with calculus of ureter (principal); I10 Essential (primary) hypertension; E78.5 Hyperlipidemia, unspecified; G47.33 Obstructive sleep apnea (adult) (pediatric); E66.01 Morbid (severe) obesity due to excess calories; Z68.43 Body mass index [BMI] 50.0-59.9, adult; F17.210 Nicotine dependence, cigarettes, uncomplicated
CPT/HCPCS: 52356; 74420; 82365; 88300; C1769; C1894; C2617; J0690; J2250; J3010; J7120; Q9966

== ENCOUNTER 2023-10-25 16:05 | Outpatient (CLI) | payer BC, SELFPAY ==
--- NOTE | ~2023-10-25 | CT_ITS ---
EXAMINATION: CT abdomen pelvis wo con DATE: 10/25/2023 16:26 INDICATION: Bilateral nephrolithiasis TECHNIQUE: Computed tomography (CT) of the abdomen and pelvis was performed without intravenous contr ast. Automated exposure control and iterative reconstruction technique were employed. The dose-length product was 1954.08 mGy-cm. COMPARISON: 08/19/2023 FINDINGS: Lung bases are clear. Heart size is normal. Atherosclerotic coronary artery calcific lesion. No peric ardial or pleural effusion. Liver, gallbladder, spleen, pancreas and bilateral adrenal glands are nor mal. 3.3 cm cyst at the upper pole of the left kidney. There are 3 stones in the left kidney the 2 la rgest the mid kidney measuring 10 x 6 mm and 4 mm with a one-2 mm stone at a lower pole calyx of the left kidney. There is a 3 mm obstructing stone in the proximal right ureter with moderate right hydro nephrosis and mild proximal hydroureter. Additional 1 mm stone at a lower pole calyx of the right kid ally. Bladder is normal. Bowels including the appendix are normal. Small fat-containing left inguinal hernia. No free intraperitoneal gas or fluid. No pathologically enlarged abdominal or pelvic lymphade nopathy. Transitional partially lumbarized S1 segment with mild lumbar and lower thoracic spondylosis . IMPRESSION: 1. Bilateral nephrolithiasis with 3 mm obstructing proximal right ureteral stone with moderate right hydronephrosis. Reviewed, dictated and finalized at location B. IMPRESSION: 1. Bilateral nephrolithiasis with 3 mm obstructing proximal right ureteral ston e with moderate right hydronephrosis.
== END 2023-10-25 16:06 | disposition home or self-care (01) ==
LOC: ANHIMG 16:09
PROVIDERS: PCP Family Medicine Sports Medicine; Visit Provider Urology
DX: N20.0 Calculus of kidney (principal)
CPT/HCPCS: 74176

== ENCOUNTER 2023-11-24 10:27 | Outpatient (CLI) | payer BC, SELFPAY ==
--- NOTE | ~2023-11-24 | XR_ITS ---
XR abdomen/kub 1V DATE: 11/24/2023 10:43 INDICATION: Bilateral kidney stones TECHNIQUE: 2 supine AP views COMPARISON: October 25, [address] abdomen and pelvis FINDINGS: No calcification is noted overlying the right kidney or right ureteral course. There are multiple calcifications overlying the lower pole left kidney. No calcification is noted ove rlying the course of the left ureter or the urinary bladder. The sutures are intact. No visceromegaly is evident. No evidence of bowel obstruction. IMPRESSION: Left nephrolithiasis Reviewed, dictated and finalized at Location A. Reviewed, dictated and finalized at location A. IMPRESSION: Left nephrolithiasis
== END 2023-11-24 10:28 | disposition home or self-care (01) ==
PROVIDERS: PCP Family Medicine Sports Medicine; Visit Provider Urology
DX: N20.0 Calculus of kidney (principal)
CPT/HCPCS: 74018

== ENCOUNTER 2024-05-15 07:44 | Outpatient (CLI) | payer BC, SELFPAY ==
--- NOTE | 2024-06-03 15:52 | P.SLEEP_ITS ---
Sleep Study Date of Study: 05/15/24 Ordering Provider: Michael Mcgarry APRN Interpreting Physician: Liz Forde DO Sleep Study Type: Split Polysomnogram Height: 1.88 m Weight: 190.509 kg Body Mass Index: 53.8 Neck Circumference (inches): 23 [place]inton: 11 Reason for Sleep Study Previously diagnosed OPAL on BPAP. Machine no longer works. 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 The patient was previously diagnosed with sleep apnea and has been on BPAP therapy for more than 10+ years. The patient rarely awakens from sleep short of breath. He rarely awakens at night with heartburn, belching or cough. He constantly snores and is frequently loud enough that others complain. He rarely has trouble sleeping when he has cold. He denies waking up gasping for air throughout the night. He occasionally has breathing problems at night observed by himself or others. He occasionally sweats excessively at night. He occasionally has heart palpitations or irregular heartbeats during the night. He occasionally falls asleep during the day but never while driving. He denies cataplexy. He rarely has trouble at school or work due to sleepiness. He rarely feels unable to move while waking up or falling asleep. He rarely experiences the ability to be unable to move I am wake after falling asleep. He rarely experiences vivid dreamlike scenes upon awakening or falling asleep. He rarely feels afraid of falling asleep. He rarely has nightmares. He frequently remembers his dreams. He frequently has thoughts racing through his mind. He rarely feels sad or depressed. He frequently has anxiety. He occasionally has muscular tension. He occasionally notices parts his body jerk. He rarely kicks during the night. He occasionally has crawling and aching feelings in his legs and occasionally has leg pain during the night. He rarely grinds his teeth during sleep and never awakens with morning jaw pain. He is frequently bothered by pain during the day and rarely awakened by pain during the night. He frequently wakes up feeling stiff in the morning. He frequently wakes up with sore or achy muscles. He frequently wakes up with pain in the neck, spine or other joints. He goes to bed at 9 pm at both weekdays and weekends. The patient falls asleep within 10 minutes. The patient wakes up 1-2 times pre night for unknown reasons and will sit until she is able to fall back asleep within 30-60 minutes. The patient wakes up at 4 am both on weekdays and weekends. The patient typically gets 4-6 hours of sleep per night. the patient seen in bed for 10-15 minutes after waking up in the morning and he currently lives alone. He denies consuming any caffeinated beverages within 2 hours of bedtime. He denies engaging in physical exercise before bedtime. He denies reading before falling asleep. He will watch television before falling asleep. He denies taking naps in the afternoon or the evening. He consumes 32 oz of caffeinated soda per day. Currently smokes 1-2 packs of cigarettes per day. He denies alcohol and recreational drug use. [facility] Past Medical History Medical History Continuous tobacco abuse COPD (chronic obstructive pulmonary disease) borderline Gout Hepatic steatosis Noted on imaging Hyperlipidemia Hypertension Morbid obesity with BMI of 50.0-59.9, adult OPAL (obstructive sleep apnea) Bipap Surgical History Surgical History S/P cystoscopy with ureteral stent placement Family History Family History Other Hypertension Sibling Thyroid cancer Social History Social History Social History: He is single. Patient is smoked a pack of cigarettes per day since he was in his mid 20s. He had drinks in moderation on the weekends. He denies illicit substance use. Code status: Full code Surrogate decision maker: Sister Smoking packs per day: 1 Smoking cigarettes per day: 20.0 Years smoked: 25 Smoking pack-years: 25.00 Smoking status: Current every day smoker Tobacco type: cigarettes Alcohol intake: current Drinks per week: 4 Alcohol use details: RARE Substance use: never Substance use type: does not use Do You Feel Safe in your Home?: Yes Lack of Transportation: No Lack of Food: Never True Current Housing: I Have Housing Concerned About Future Housing: No Difficulty Paying Gas/Electric Bills: No Difficulty Paying for Meds: No Currently Unemployed: No Education: Associate Degree Difficulty w/ Childcare or Family Care: No Living arrangements: with family Additional living arrangements comments: MOTHER Spiritual care concerns: No Medications Home Medications Medication Instructions Recorded Confirmed Type amlodipine 10 mg tablet 10 mg PO DAILY 05/01/23 02/21/24 History carvedilol 12.5 mg tablet 12.5 mg PO BID 05/01/23 02/21/24 History lisinopril 40 mg tablet 40 mg PO DAILY 05/01/23 02/21/24 History Sleep Procedure A full night polysomnogram using the [employer] multi-channel system recorded the standard physiologic parameters including EEG, EOG, submentalis EMG, anterior tibialis EMG, EKG, body position, nasal and oral airflow using nasal pressure sensor and thermistor.? Respiratory parameters of chest and abdominal movements were recorded with Respiratory Inductance Plethysmography belts. Oxygen saturation was recorded by pulse oximetry. Video monitoring was also performed. Sleep stages, periodic limb movements, and EEG arousals were scored in 30 second epochs according to the criteria of the AASM Scoring Manual. The Apnea-Hypopnea Index was calculated using CMS guidelines for definition of hypopnea with 4% O2 desaturations while scoring respiratory events. Sleep Architecture During the diagnostic portion of the study, the total recording time was 214.1 minutes. The total sleep time was 139.0 minutes. Sleep latency was 2.5 minutes.? REM sleep was not achieved during this portion of the study.. Sleep Efficiency was 64.9%. The patient had 39 awakenings for an awakening index of 16.8. Wake after sleep onset time was 72.5 minutes. The patient spent 62.5 minutes, 45.0% of total sleep time in Stage N1. The patient spent 76.5 minutes, 55.0% in Stage N2. The patient spent 0.0 minutes, 0.0% in Stage N3. The patient spent 0.0 minutes, 0.0% in Stage REM sleep. At 01:38:33 AM the patient was placed on PAP treatment and was titrated at pressures ranging from 5 cm H20 up to 20 cm H20. During the treatment portion of the study, the total recording time was 304.0 minutes.? The total sleep time was 213.0 minutes. Sleep latency was 18.5 minutes. REM latency was 55.5 minutes. Sleep Efficiency was 70.1%. Wake after Sleep Onset time was 72.5 minutes. The patient spent 64.5 minutes, 30.3% of total sleep time in Stage N1. The patient spent 119.5 minutes, 56.1% in Stage N2. The patient spent 0.0 minutes, 0.0% in Stage N3. The patient spent 29.0 minutes, 13.6% in Stage REM. Respiratory Analysis During the diagnostic portion of the study, the patient had 66 hypopneas, 98 obstructive apneas and 1 central apnea for an overall Apnea Hypopnea Index of 71.2 events per hour. The REM Apnea Hypopnea Index was 0. The NREM Apnea Hypopnea Index was 71.2. The patient had a Central Apnea Hypopnea Index of 0.4. There were 6 Respiratory Effort Related Arousals resulting in a RERA index of 2.6 events per hour. The Respiratory Disturbance Index is 73.8 events per hour. There was no evidence of Satish-Park Respirations. During the treatment portion of the study, the patient had 72 hypopneas, 18 obstructive apneas and 6 central apneas for an overall Apnea Hypopnea Index of 27.0 events per hour. The REM Apnea Hypopnea Index was 8.3. The NREM Apnea Hypopnea Index was 30.0. The patient had a Central Apnea Hypopnea Index of 1.7. There were 10 Respiratory Effort Related Arousals resulting in a RERA index of 2.8 events per hour. The Respiratory Disturbance Index is 30.4 events per hour. There was no evidence of Satish-Park Respirations. The patient started on CPAP 5 cm H2O and was titrated to CPAP 20 cm H2O due to hypopneas. The patient was able to fall asleep starting on CPAP 7 cm H2O. The patient was able to achieve REM sleep starting on CPAP 11 cm H2O. The lowest residual AHI the patient was able to achieve with both NREM and REM sleep was 12.4 on 19 cm H2O. On CPAP 19 cm H2O, the On CPAP 20 cm H2O, the patient spent 19 minutes in NREM and 0 minutes in REM with no respiratory events, resulting in an AHI of 0. The patient had a sleep efficiency of 88.4% on the final pressure. patient spent 46 minutes in NREM and 22 minutes in REM with 4 central apneas and 10 hypopneas, resulting in an AHI of 12.4. On CPAP 20 cm H2O, the patient spent 19 minutes in NREM with no respiratory events, resulting in an AHI of 0. The patient had a sleep efficiency of 73.11% on 19 cm H2O and 88.4% on 20 cm H2O. Arousals During the diagnostic portion of the study, there were a total of 169 arousals for an arousal index of 72.9.? There were 71 respiratory arousals for an index of 30.6. There were 17 periodic limb movement arousals for an index of 7.3.? There were 13 isolated limb movement arousals for an index of 5.6. There were 69 spontaneous arousals for an index of 29.8. During the treatment portion of the study, there were a total of 123 arousals for an index of 34.6.? There were 48 respiratory arousals for an index of 13.5. There were 17 periodic limb movement arousals for an index of 4.8.? There were 22 isolated limb movement arousals for an index of 6.2. There were 37 spontaneous arousals for an index of 10.4. Periodic Limb Movements During the diagnostic portion of the study, the patient had 32 isolated limb movements with an index of 13.8. The patient had 34 periodic limb movements with an index of 14.7. The patient had a total of 66 limb movements with a total limb movement index of 28.5. During the treatment portion of the study, the patient had 43 isolated limb movements with an index of 12.1. The patient had 56 periodic limb movements with an index of 15.8, which is elevated (normal < 15). The patient had a total of 99 limb movements with a total limb movement index of 27.9. Oximetry Data During the diagnostic portion of the study, the patient had an average oxygen saturation of 91.9% in wake with a minimum oxygen saturation of 82% and a maximum oxygen saturation of 965. The patient had an average oxygen saturation of 90.5% in sleep with a minimum oxygen saturation of 81.0% and a maximum oxygen saturation of 98.0%. The patient had 155 oxygen desaturations resulting in an Oxygen Desaturation Index of 66.9. The patient spent 27.9 minutes, 14.6% of total sleep time with an oxygen saturation less than 88%. During the treatment portion of the study, the patient had an average oxygen saturation of 91.9% in wake with a minimum oxygen saturation of 84.0% and a maximum oxygen saturation of 98.0%. The patient had an average oxygen saturation of 91.1% in sleep with a minimum oxygen saturation of 84.0% and a maximum oxygen saturation of 97.0%. The patient had 113 oxygen desaturations resulting in an Oxygen Desaturation Index of 31.8. The patient spent 26.2 minutes, 8.8% of total sleep time with an oxygen saturation less than 88%. Snoring Profile Mild to moderate snoring was present in the baseline portion of the study. Snoring resolved once the patient was titrated to CPAP 19 cm H2O. Cardiac Profile The EKG lead showed normal sinus rhythm with occasional PVCs. During the diagnostic portion of the study, the average pulse rate was 72.3 bpm.? The minimum pulse rate was 56.0 bpm. The maximum pulse rate was 82.0 bpm. During the treatment portion of the study, the average pulse rate was 69.2 bpm.? The minimum pulse rate was 57.0 bpm. The maximum pulse rate was 85.0 bpm. EEG Profile No signs of seizure activity seen. Assessment and Plan Assessment and Plan (1) OPAL (obstructive sleep apnea): Code(s): G47.33 - Obstructive sleep apnea (adult) (pediatric) Status: Acute Assessment and Plan: In the diagnostic portion of the study, the patient had an overall AHI of 71.2 with desaturation down to 81%. This is consistent with severe sleep apnea. The patient was started on CPAP 5 cm H2O and was titrated to CPAP 20 cm H2O due to hypopneas. The patient's sleep apnea significantly improved on the final pressure in the supine position despite not getting into REM sleep. I recommend that the patient be prescribed Resmed CPAP 20 cm H2O, size large Resmed AirTouch F20 full face mask, CPAP filters/tubing and heated humidity. If the patient has difficulty tolerating this pressure setting over time, he will need a BPAP Titration study. If the patient is unable to tolerate this CPA pressure, I recommend that he have a BPAP Titration study. This should be used with all episodes of sleep.? Compliance should be reviewed within 31-90 days of starting therapy for usage greater than 4 hours per night greater than 70% of the nights. The patient should be asked about symptoms such as?excessive daytime sleepiness, quality of sleep, decreased nocturia, incr eased?mental functioning such as memory, mood, and concentration. Data The data obtained during this sleep study is adequate for interpretation. Certification This sleep study has been reviewed by a board certified sleep medicine physician.
[2024-06-03 17:44] VITALS: BMI 53.8
== END 2024-05-16 07:04 | disposition home or self-care (01) ==
LOC: ANHCSM 07:45
PROVIDERS: PCP Family Medicine Sports Medicine; Visit Provider Nurse Practitioner Family
DX: G47.33 Obstructive sleep apnea (adult) (pediatric) (principal); I10 Essential (primary) hypertension
CPT/HCPCS: 95811

== ENCOUNTER 2024-10-20 16:02 | Outpatient (CLI) | payer OTHER, SELFPAY ==
--- NOTE | ~2024-10-20 | XR_ITS ---
XR abdomen/kub 1V 10/20/2024 16:24 INDICATION: Renal stones TECHNIQUE: KUB COMPARISON: 11/24/2023 FINDINGS: Bowel gas pattern is normal. There is no evidence of free air, mass, organomegaly, ascites or obstruction. No abnormal calculi are seen. The left kidney stone seen on prior examination are n ot appreciated on the current study, possibly due to bowel content. The bones appear intact. IMPRESSION: 1: No acute abdominal abnormality identified. Reviewed, dictated and finalized at location A.
--- OUTSIDE RECORDS SUMMARY | 2024-10-20 17:51 | XMS_ITS | Clinical Summary ---
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 90 Tablet 2 01/13/2020 4:43 PM CDT 01/13/2020 Active amLODIPine (NORVASC) 2.5 mg tablet Take 1 Tablet (2.5 mg) by mouth daily. 30 Tablet 01/13/2020 4:43 PM CDT 01/13/2020 Active lisinopriL (PRINIVIL) 10 mg tablet Take 1 Tablet (10 mg) by mouth daily. 30 Tablet 01/13/2020 4:43 PM CDT 01/13/2020 Active simvastatin (ZOCOR) 20 mg tablet Take 1 Tablet (20 mg) by mouth daily. 30 Tablet 01/13/2020 4:43 PM CDT 01/13/2020 Active tamsulosin (FLOMAX) 0.4 mg capsule Take 1 Capsule (0.4 mg) by mouth daily after supper. 30 Capsule 01/13/2020 4:43 PM CDT 01/13/2020 Active HYDROcodone-kathy taminophen (NORCO) 5-325 mg tablet Take 1 Tablet by mouth every 6 hours as needed for pain for 3 days 12 Tablet 07/15/2023 1:07 PM MANAGER INTERVENTIONAL 07/15/2023 Active amLODIPine (NORVASC) 10 mg tablet Take 1 Tablet (10 mg) by mouth daily. 90 Tablet 1 11/23/2023 5:23 PM CDT 07/24/2023 Active lisinopriL (PRINIVIL) 40 mg tablet Take 1 tablet (40 mg total) by mouth daily. 90 Tablet 1 11/23/2023 5:23 PM CDT 07/24/2023 Active cefdinir (OMNICEF) 300 mg capsule Take 1 Capsule (300 mg) by mouth every 12 hours. 13 Capsule 08/20/2023 6:22 PM MANAGER INTERVENTIONAL 08/20/2023 Active levoFLOXacin (LEVAQUIN) 750 mg tablet Take 1 Tablet (750 mg) by mouth daily. 28 Tablet 08/27/2023 6:25 PM MANAGER INTERVENTIONAL 08/27/2023 Active carvediloL (COREG) 12.5 mg tablet Take 1 tablet (12.5 mg total) by mouth 2 (two) times daily. 180 Tablet 12/21/2023 6:52 PM CDT 12/21/2023 Active eszopiclone (LUNESTA) 2 mg Tablet Take tablet with you to sleep center for sleep study 1 Tablet 03/09/2024 2:53 PM CDT 03/07/2024 Active calcitRIOL (ROCALTROL) 0.25 mcg capsule Take 1 capsule (0.25 mcg total) by mouth daily 30 Capsule 03/09/2024 2:51 PM CDT 03/09/2024 Active calcium as carbonate (OS-GAVIN) 1,250 mg (500 mg elemental) tablet Take 1 tablet (1,250 mg total) by mouth 3 (three) times a day 270 Tablet 03/09/2024 2:51 PM CDT 03/09/2024 Active traMADoL (ULTRAM) 50 mg tablet Take 1 Tablet (50 mg) by mouth every 6 hours as needed FOR PAIN. 10 Tablet 03/09/2024 2:51 PM CDT 03/09/2024 Active amLODIPine (NORVASC) 10 mg tablet Take 1 Tablet (10 mg) by mouth daily. 90 Tablet 1 03/14/2024 2:19 PM CDT 03/13/2024 Active lisinopriL (PRINIVIL) 40 mg tablet Take 1 tablet (40 mg total) by mouth daily. 90 Tablet 1 03/14/2024 2:19 PM CDT 03/13/2024 Active carvediloL (COREG) 12.5 mg tablet Take 1 tablet (12.5 mg total) by mouth 2 (two) times daily. 180 Tablet 05/05/2024 5:37 PM CDT 05/05/2024 Active amLODIPine (NORVASC) 10 mg tablet Take 1 Tablet (10 mg) by mouth daily. 90 Tablet 1 07/17/2024 5:15 PM MANAGER INTERVENTIONAL 07/15/2024 Active lisinopriL (PRINIVIL) 40 mg tablet Take 1 Tablet (40 mg) by mouth daily. 90 Tablet 1 07/17/2024 5:15 PM MANAGER INTERVENTIONAL 07/15/2024 Active cholecalciferol 1,250 mcg (50,000 unit) Capsule Take 1 Capsule (50,000 Units) by mouth every 7 days. 12 Capsule 08/17/2024 2:11 PM MANAGER INTERVENTIONAL 08/11/2024 Active hydroCHLOROthia zide 12.5 mg tablet Take 1 Tablet (12.5 mg) by mouth daily. 30 Tablet 10/05/2024 1:21 PM CDT 09/29/2024 Active Active Problems Problem Noted Date Diagnosed Date Benign hypertension 01/13/2020 Morbid obesity with BMI of 50.0-59.9, adult 12/16 Kidney stone 01/13/2020 GERD (gastroesophageal reflux disease) 0 OPAL on CPAP 01/13/2020 Flank pain 01/13/2020 Hydronephrosis concurrent wi th and due to calculi of kidney and ureter 01/13/2020 Tobacco dependence 01/13/2020 Medical non-compliance 01/13/2020 Encounters Date Type Department Care Team Description 09/24/2024 External Device Data [facility] ABSTRACTION Provider, Abstract 09/23/2024 External Device Data [facility]CTION Provider, Abstract 08/19/2024 External Device Data [facility]STRACTION Provider, Abstract from Last 3 Months Immunizations Immunization Administration Dates Next Due ([place])(12 YR UP) COVID-19 VACCINE - EMERGENCY USE AUTHORIZATION, MRNA, [id number](PF) 30 MCG/0.3 ML IM SUSP 10/12/2020,09/23/2020 INFLUENZA VACCINE QUADRIVALE NT 6 MOS UP PF IM 05/10/2022 Influenza Seasonal Unspecifi ed Formulation IM 04/30/2021,03/30/2020,05/07/2019,2017 Family History Medical History Relation Name Comments Cancer Maternal Grandfather Cancer Mother Diabetes Mother Relation Name Status Comments Maternal Grandfather Mother Social History Tobacco Use Types Packs/Day Years Used Date Smoking Tobacco: Every Day Cigarettes 0.5 25 Smokeless Tobacco: Never Tobacco Cessation:Ready to Q uit: Yes Alcohol Use Standard Drinks/Week Comments Not Currently 0 (1 standard drink = 0.6 oz pur e alcohol) Sex and Gender Information Value Date Recorded Sex Assigned at Not on file Legal Sex Male 3:24 PM CDT Gender Identity Not on file Sexual Orientation Not on file Last Filed Vital Signs Vital Sign Reading Time Taken Comments Blood Pressure 171/95 01/13/2020 3:11 PM CDT Pulse 68 01/13/2020 3:11 PM CDT Temperature 36.8 C (98.3 F) 01/13/2020 3:11 PM CDT Respiratory Rate 18 01/13/2020 3:11 PM CDT Oxygen Saturation 94% 01/13/2020 3:11 PM CDT Inhaled Oxygen Concentration - - Weight 181.4 kg (400 lb) 01/13/2020 6:18 AM CDT Height 188 cm (6' 2 ) 01/13/2020 6:18 AM CDT Body Mass Index 51.36 01/13/2020 6:18 AM CDT Plan of Treatment Health Maintenance Due Date Last Done Comments Pre-Diabetes and Diabetes Screening 1969 DTAP/TDAP/TD VACCINES (1 - Tdap) 1988 HEPATITIS B VACCINES (1 of 3 - 19+ 3-dose series) 1988 COLORECTAL SCREENING 2014 Colorectal Cancer Screening 2014 FIT-DNA Q 3 years 2014 FIT/FOBT Q 1 year 2014 Flex Sig/CT Colonography Q 5 years 2014 ZOSTER VACCINE (1 of 2) 2019 INFLUENZA VACCINE (#1) 2024 2, 04/30/2021, 03/30/2020, Additional history exists COVID-19 Vaccine (2023-2 5 season) 2024 10/12/2020, 09/23/2020 Insurance RX [employer] (INTERNAL) [facility] [employer] Member Subscriber Plan / Payer (Ef fective 2024-Present) Name:Robert Stroud Relation to Subscriber:Self Name:Robert Stroud Subscriber ID:Not on file Payer ID:Not on file Type:Not on file Address: [address] [facility] [employer] Advance Directives For more information, please contact: [phone] * Full Code (Latest Code Status on File) Date Activated Date Inactivated Comments 01/13/2020 10:17 AM 01/13/2020 8:56 PM Care Teams 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
--- OUTSIDE RECORDS SUMMARY | 2024-10-20 17:51 | XMS_ITS | Clinical Summary ---
Author Organization [facility] Address [address] [place] [address] Care Team Providers Care Piece Goods Clerk Name Role Phone Gerber Irby MD Primary Care Provider + Allergies Active Allergy Reactions Criticality Noted Date Comments Sulfamethoxazole-Trimethoprim Unknown 2017 Medications amLODIPine (NORVASC) 10 mg tablet Take 1 tablet (10 mg total) by mouth daily before breakfast 1 Active lisinopriL (PRINIVIL,ZESTR IL) 20 mg tablet Take 2 tablets (40 mg total) by mouth daily before breakfast Active nitroglycerin (NITROSTAT) 0.[address] 1 tablet (0.4 mg total) under the tongue every 5 (five) minutes as needed for chest pain 1 Active atorvastatin (LIPITOR) 20 mg tablet Take 1 tablet (20 mg total) by mouth every other day Active carvediloL (COREG) 12.5 mg tablet Take 1 tablet (12.5 mg total) by mouth 2 (two) times a day with meals Active cinacalcet (SENSIPAR) 30 mg tablet Take 1 tablet (30 mg total) by mouth daily before dinner Active cholecalciferol (Vitamin D3) 1,000 unit capsule Take 3 capsules (3,000 Units total) by mouth 3 (three) times a week Active multivitamin tablet Take 1 tablet by mouth daily before breakfast Active ibuprofen 200 mg tab/cap Take 2 tablet/capsule (400 mg total) by mouth every 6 (six) hours as needed for pain Active acetaminophen 500 mg capsuleIndicati ons:Pain Take 2 capsules (1,000 mg total) by mouth every 6 (six) hours 4 Active calcium carbonate (OS-GAVIN) 1,250 mg (500 mg elemental) tabletIndicatio ns:hypocalcemia Take 1 tablet (1,250 mg total) by mouth 3 (three) times a day 270 tablet 4 Active traMADoL (ULTRAM) 50 mg tablet Take 1 tablet (50 mg total) by mouth every 6 (six) hours as needed for pain 10 tablet 4 Active calcitRIOL (ROCALTROL) 0.25 mcg capsule Take 1 capsule (0.25 mcg total) by mouth daily 30 capsule 4 Active Active Problems Problem Noted Date Diagnosed Date Hyperparathyroidism, primary 03/07/2024 Hyperparathyroidism 01/31/2024 Surgical History Surgery Date Site/Laterality Comments NOSE SURGERY as a child KIDNEY STONE SURGERY 07/16/2016 - 07/15/2017 KIDNEY SURGERY 07/16/2016 - 07/15/2017 PARATHYROIDECTOMY / EXPLORAT ION OF PARATHYROIDS 07/16/2016 - 07/15/2017 Parathyroidectomy (failed) LITHOTRIPSY 07/16/2023 - 07/15/2024 multiple URETERAL STENT PLACEMENT 07/16/2023 - 07/15/2024 Medical History Medical History Date Comments Hypertension Sleep apnea Family History Medical History Relation Name Comments Cancer Maternal Grandmother Stroke Maternal Grandmother Colon cancer Mother Pancreatic cancer Mother's Sister Cancer Other sister's daughter Relation Name Status Comments Maternal Grandmother Mother Alive Mother's Sister (Age in her 60's ) Other sister's daughter Other Cancer Social History Tobacco Use Types Packs/Day Years Used Date Smoking Tobacco: Every Day Cigarettes 1 29.3 Started: 1995 Smokeless Tobacco: Never Tobacco Cessation:Ready to Q uit: Not Asked; Counseling Given: Not Answered AUDIT-C Answer Date Recorded Q1: How often do you have a drink containing alc ohol? 2-4 times a month 03/07/2024 Q2: How many drinks containi ng alcohol do you have on a typical day when you are drinking? 3 or 4 03/07/2024 Q3: How often do you have si x or more drinks on one occasion? Never 03/07/2024 Personal Safety Answer Date Recorded Have you ever been in or are you currently in a harmful physical or emotional relationship or is someone making you feel afraid or unsafe? 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 Gender Identity Not on file Sexual Orientation Not on file Obstetrics History Last Filed Vital Signs Vital Sign Reading Time Taken Comments Blood Pressure 106/71 03/09/2024 7:38 AM CDT Pulse 54 03/09/2024 7:38 AM CDT Temperature 36.7 C (98.1 F) 03/09/2024 7:38 AM CDT Respiratory Rate 20 03/09/2024 7:38 AM CDT Oxygen Saturation 100% 03/09/2024 7:38 AM CDT Inhaled Oxygen Concentration - - Weight 188.2 kg (414 lb 14.5 oz) 03/24/2024 3:33 PM CDT Height 188 cm (6' 2.02 ) 03/24/2024 3:33 PM CDT Body Mass Index 53.25 03/24/2024 3:33 PM CDT Plan of Treatment Health Maintenance Due Date Last Done Comments Colon Cancer Screening-Colonoscopy 1969 Depression Screening 1969 Hepatitis C Screening 1969 Prostate Cancer Screening-PSA 1969 DTaP/Tdap/Td Vaccine (1 - Tdap) 1980 Hepatitis B Screening 1987 Regular Well Visit/Exam 18-64 1987 Pneumococcal vaccine <65 (1 of 2 - PCV) 1988 Lung Cancer Screening 2019 Zoster Vaccine (1 of 2) 2019 Covid-19 Vaccine (3 - 2023-2 5 season) 2024 10/12/2020, 09/23/2020 Influenza Vaccine (Season Ended) 2025 05/10/2022, 04/30/2021, 03/30/2020, Additional history exists Insurance [facility] [facility] Advance Directives For more information, please contact: [phone] * Full Code (Latest Code Status on File) Date Activated Date Inactivated Comments 03/07/2024 10:27 PM 03/09/2024 6:54 PM * Full Code Date Activated Date Inactivated Comments 10/07/2021 2:10 PM 10/08/2021 4:49 AM Care Teams Piece Goods Clerk Relationship Specialty Start Date End Date Gerber Irby MD [address] [place] [address] PCP - General Family Medicine 11/10/21
--- OUTSIDE RECORDS SUMMARY | 2024-10-20 17:51 | XMS_ITS | Patient Health Record ---
Author Organization [facility] Address [address] [place] [id number] Care Team Providers Care Quality Assurance Supervisor Body Name Role Phone Maria RmereGerber Primary Care Provider Unavail able James Ward Unavailable [phone] ALLERGIES Allergen (clinical drug ingredient) Drug/Non Drug Allergy documented on EMR Reaction Allergy Type Onset Date Status sulfamethoxazole / trimethoprim Bactrim Unknown Drug Allergy Active REASON FOR REFERRAL No Information MEDICATIONS Medication SIG (Take, Route, Frequency, Duration) Notes Start Date End Date Status Vitamin D (Ergocalciferol) 28176 UNIT 1 capsule Orally Once a week Active Allopurinol 300 MG 1 tablet Orally Once a day for 90 Active Sensipar 90 MG 1 tablet after a cam l with food Orally Once a day for 30 day(s) 07/26/2017 Active Lisinopril 20 MG 2 tablets Orally Onc e a day Active Simvastatin 20 MG 1 tablet in the even ing Orally Once a day Active Tylenol 325 MG 2 tablets as needed Orally every 6 hrs Active IMMUNIZATIONS Vaccine Route Administration Date Status Comme nts Influenza Unknown 05/23/2017 Administered SOCIAL HISTORY Tobacco Use: Social History Observation Description Date Details (start date - stop date) Current Smoker NA - NA Sex Assigned At : Social History Observation Description Sex Assigned At Unknown Tobacco Use/Smoking Question Answer Notes You are a current every day smoker PROBLEMS Problem Type ICD Code Onset Dates Problem Status W/U Status Risk SNOMED Code Notes Problem Calculus of kidney (N20.0) Active confirmed Calculus of kidney (67794746) Problem Acute kidney failure, unspecified (N17.9) Active confirmed Acute renal failure syndrome (69894310) Due to bilateral ureteral obstruction Problem Hydronephrosis with renal and ureteral calculous obstruction (N13.2) Active confirmed Hydronephrosis with renal and ureteral calculous obstruction (008279100) 70-80% calcium oxalate 20-30% uric acid Problem Essential (primary) hypertension (I10) Active confirmed Essential hypertension (20969893) Problem Hyperlipidemia, unspecified (E78.5) Active confirmed Hyperlipidemia (99559237) Problem Hypercalcemia (E83.52) Active confirmed Hypercalcemia (40555010) Due to primary hyperparathyroidis m Problem Vitamin D deficiency, unspecified (E55.9) Active confirmed Vitamin D deficiency (61082123) PLAN OF TREATMENT Future Test Test Name Order Date PTH, INTACT AND CALCIUM 09/23/2017 Vitamin D, 25-Hydroxy 09/23/2017 RENAL PANEL 10/24/2017 PTH, INTACT AND CALCIUM 10/24/2017 Insurance Providers Payer Name Payer Address Payer Phone Subscriber Number Group Number Insured Name Patient Relationship to Insured Coverage Start Date Coverage End Date [facility] [address] [address] [place] [address] [id number] Robert Dugan Self - patient is the insured MEDICAL (GENERAL) HISTORY Medical History History ICD Code Hypertension Kidney Stone-2011 High cholesterol Morbid Obesity with BMI of 50-59.9, adul t OPAL treated with BiPAP Surgical History Surgery Date(Month/Year) Nose surgery-broken nose Cystoscopy, bilateral retrog rade and bilateral ureteral stent insertion 11/11/2016 Cystoscopy, bilateral ureteroscopy with Holmium Laser Lithotripsy 11/29/2016 Parathyroidectomy with PTH intraoperativ e monitoring 02/28/2017 Hospitalization History Reason Date(Month/Year) JON 11/11/2016 Hyperparathyroidism 02/27/2017
--- OUTSIDE RECORDS SUMMARY | 2024-10-20 17:51 | XMS_ITS | Encounter Summary ---
Author Organization [facility] Address [address] [place] [address] Care Team Providers Care Tennis Ball Cover Cementer Name Role Phone Gerber Irby MD Primary Care Provider [phone] Brady Ramirez MD Unavailable [phone] Encounter Details Date Type Department Care Team (Late st Contact Info) Description 07/25/2016 [facility] [address] [address] Vero Winter [place] Social History Tobacco Use Types Packs/Day Years Used Date Smoking Tobacco: Every Day Smokeless Tobacco: Never Comments:1ppd Alcohol Use Standard Drinks/Week Comments Yes 0 (1 standard drink = 0.6 oz pur e alcohol) 2-4/week Sex and Gender Information Value Date Recorded Sex Assigned at Not on file Legal Sex Male 10:20 PM CDT Gender Identity Not on file Sexual Orientation Not on file 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 Seen in clinic today CONTROL SPECIALIST documented in this encounter Plan of Treatment Upcoming Encounters Date Type Department Care Team (Late st Contact Info) Description 01/22/2025 1:40 PM CDT Office Visit [facility] Family & Internal Medicine [address] [address] Gerber Irby MD [address] [facility] [address] [place] [address] documented as of this encounter Procedures Procedure Name Priority Date/Time Associated Diagnosis Comments BASIC METABOLIC PANEL Routine 11/16/2016 CBC (OUTSIDE LAB) Routine 07/13/2016 COMPREHENSIVE METABOLIC PANEL Routine 07/13/2016 CKMB(MB FRACTION ONLY) Routine 07/13/2016 TROPONIN, QUANT Routine 07/13/2016 CK (CPK) Routine 07/13/2016 documented in this encounter Results * (ABNORMAL) BASIC METABOLIC PANEL (11/16/2016) SODIUM S/P/B 139 POTASSIUM S/P/B 4.6 CO2 20 CHLORIDE S/P/B 109 GLUCOSE 90 mg/dL CALCIUM S/P/B 12.3 BUN 25 CREATININE S/P/B 1.53(A) 0.7 - 1.3 EGFR NON-AFR. AMER. 52 <=90 11/16/2016 us Doc [facility]ORATORY Final Result * TROPONIN, QUANT (07/13/2016) TROPONIN I 0.01 07/13/2016 us Doc [facility] Abstract LABORATORY Final Result * CPK, MB FRACTION (07/13/2016) CK-MB 0.9 07/13/2016 us Doc [facility] LABORATORY Final Result * CK (CPK) (07/13/2016) CPK 78 07/13/2016 us Doc [facility] LAB[facility]ATORY Final Result * COMPREHENSIVE METABOLIC PANEL (07/13/2016) SODIUM S/P/B 138 POTASSIUM S/P/B 3.9 CO2 26 CHLORIDE S/P/B 105 GLUCOSE 85 CALCIUM S/P/B 11.3 BUN 15 CREATININE S/P/B 1.28 EGFR NON-AFR. AMER. >60 ALKALINE PHOSPHATASE S/P/B 65 ALT 38 AST 23 BILIRUBIN TOTAL S/P/B 0.4 ALBUMIN S/P/B 4.4 3.5 - 5.0 TOTAL PROTEIN S/P/B 7.6 07/13/2016 us Doc [facility]AT[facility] Final Result * CBC (OUTSIDE LAB) (07/13/2016) WBC 9.3 HGB 14.8 HCT 43.1 PLT 202 07/13/2016 us Doc [facility] Abstract LAB-OUTSIDE/ABSTRACTED Final Result documented in this encounter Visit Diagnoses Not on filedocumented in this encounter Care Teams Tennis Ball Cover Cementer Relationship Specialty Start Date End Date Gerber Irby MD [address] [facility] [address] [place] [address] PCP - General FAMILY PRACTICE 12/15/15 Brady Ramirez [facility] [address] [facility] [place] [address] [place] Horseback Riding Instructor CARDIOVASCULAR DISEASE 12/15/15 documented as of this encounter
--- OUTSIDE RECORDS SUMMARY | 2024-10-20 17:51 | XMS_ITS | Encounter Summary ---
Author Organization [facility] Address [address] [place] [address] Care Team Providers Care Make Up Girl Name Role Phone Gerber Irby MD Primary Care Provider [phone] Brady Ramirez MD Unavailable [phone] Encounter Details Date Type Department Care Team (Late st Contact Info) Description 04/23/2024 [email or web address] Message Enc [facility] Family & Internal Medicine [address] [address] Gerber Irby MD [address] [address] Infection in left leg Social History Tobacco Use Types Packs/Day Years Used Date Smoking Tobacco: Every Day Cigarettes 1 28.3 Started: 07/16/1996 Passive Smoke Exposure: Current Smokeless Tobacco: Never Comments:on and off Alcohol Use Standard Drinks/Week Comments Yes 6.7 (1 standard drink = 0.6 oz p ure alcohol) 2-4/week liquor PHQ-2 Answer Date Recorded Patient Health Questionnaire-2 Score 0 01/22/2024 Sex and Gender Information Value Date Recorded Sex Assigned at Not on file Legal Sex Male 10:20 PM CDT Gender Identity Not on file Sexual Orientation Not on file 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 Answer Date of Assessment Author Status No 12/11/2020 8:18 PM CDT Activ e * Do you have serious difficulty walking or climbing stairs? Answer Date of Assessment Author Status No 12/11/2020 8:18 PM CDT Zane Guerra RN Active * Do you have difficulty dressing or bathing? Answer Date of Assessment Author Status No 12/11/2020 8:18 PM CDT Zane Guerra RN Active * Because of a physical, mental, or emotional condition, do you have difficulty doing errands alone such as visiting a doctor's office or shopping? Answer Date of Assessment Author Status No 12/11/2020 8:18 PM CDT Zane Guerra RN Active documented as of this encounter Mental Status * Because of a physical, mental, or emotional condition, do you have serious difficulty concentrating, remembering, or making decisions? Answer Entry Date Author Status No 12/11/2020 8:18 PM CDT Zane Guerra RN Active documented in this encounter Progress Notes * Tiffanie Hernandez RN - 04/24/2024 9:30 AM CDT Please advise. Thank you! documented in this encounter Plan of Treatment Upcoming Encounters Date Type Department Care Team (Late st Contact Info) Description 01/22/2025 1:40 PM CDT Office Visit [facility] Family & Internal Medicine [address] [address] Gerber Irby MD [address] [facility] [address] [place] [address] documented as of this encounter Visit Diagnoses Not on filedocumented in this encounter Additional Health Concerns Assessment Noted Time PHQ-9 Depression Total Score: 0 10/01/19 22 9:46 AM CDT documented as of this encounter Care Teams Make Up Girl Relationship Specialty Start Date End Date Gerber Irby MD [address] [place] [address] PCP - General FAMILY PRACTICE 12/15/15 Brady Ramirez MD [address] [facility] [place] [address] [place] Supplier Quality Engineer CARDIOVASCULAR DISEASE 12/15/15 documented as of this encounter
--- OUTSIDE RECORDS SUMMARY | 2024-10-20 17:51 | XMS_ITS | Referral Summary ---
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 [facility] Advance Directives For more information, please contact: [phone] * Full Code (Latest Code Status on File) Date Activated Date Inactivated Comments 03/07/2024 10:27 PM 03/09/2024 6:54 PM * Full Code Date Activated Date Inactivated Comments 10/07/2021 2:10 PM 10/08/2021 4:49 AM Care Teams Senior Business Process Analyst Relationship Specialty Start Date End Date Gerber Irby MD [address] [place] [address] PCP - General Family Medicine 11/10/21
--- OUTSIDE RECORDS SUMMARY | 2024-10-20 17:51 | XMS_ITS | Clinical Summary ---
Author Organization [facility] Address [address] [place] [address] Care Team Providers Care Roof Assembler Name Role Phone Gerber Irby MD Primary Care Provider [phone] Brady Ramirez MD Unavailable [phone] Allergies Active Allergy Reactions Criticality Noted Date Comments Sulfamethoxazole-Trimethoprim Unknown 2017 Medications carvedilol (COREG) 12.5 MG tabletIndications :Benign hypertension Take 1 tablet (12.5 mg total) by mouth 2 (two) times daily. 180 tablet 05/05/2024 Active lisinopril (PRINIVIL) 40 MG tabletIndications :Benign hypertension Take 1 tablet (40 mg total) by mouth daily. 90 tablet 1 07/15/2024 Active amLODIPine (NORVASC) 10 MG tabletIndications :Benign hypertension Take 1 tablet (10 mg total) by mouth daily. 90 tablet 1 07/15/2024 Active Active Problems Problem Noted Date Diagnosed Date Hypercalcemia 04/11/2022 Vitamin D deficiency 04/11/2022 Multiple endocrine adenomas (CMS/HCC HHS/HCC) GERD (gastroesophageal reflux disease) 0 Morbid obesity with body mass index of 50.0-59.9 in adult 01/13/2020 Medical non-compliance 01/13/2020 Tobacco dependence 01/13/2020 Encounter for postoperative care 02/28/2017 Primary hyperparathyroidism ([facility]/HCC) 02/28/2017 JON (acute kidney injury) 11/11/2016 Calculus of both ureters 11/11/2016 Hydronephrosis concurrent wi th and due to calculi of kidney and ureter 11/11/2016 Chest pain due to myocardial ischemia 10/30/2016 Benign hypertension 01/22/2014 Obstructive sleep apnea syndrome 12/19/2013 Right flank pain 11/13/2013 Dyslipidemia Resolved Problems Problem Noted Date Diagnosed Date Resolved Date Wears glasses 08/23/2017 12/13/2020 Acute renal failure 11/11/2016 06/22/20 21 Morbid obesity, unspecified obesity type 07/27/2016 06/22/2021 Chest pain 08/27/2014 06/22/2021 Hyperlipidemia 03/05/2014 06/22/2021 Calculus of kidney 11/13/2013 Encounters Date Type Department Care Team Description 08/08/2024 Scan [facility] Scanned, Doc Med Group 07/24/2024 5:41 PM WASH AND GREASER - 07/24/2024 11:59 PM [facility] AND GRE[facility]ER Hospital Encounter [facility] [address] [place] [id number] Gerber Irby MD Discharge Disposition: Home or Self Care (Routine Discharge) 07/24/2024 3:30 PM W[facility] AND GRE[facility]ER Laboratory Only [facility] [address] [address] Gerber Irby MD 07/24/2024 2:20 PM WASH AND GREASER Office Visit [facility] [address] [phone] Gerber Irby MD Follow Up (6 mo f/u ) 07/24/2024 Travel from Last 3 Months Immunizations Name Administration Dates Next Due Influenza (Generic) 04/30/2021, 0,05/07/2019, 018,05/23/2017 Influenza Adult (Generic) 05/10/2022 PFIZER COVID-19 (ORIGINAL FORMULATION, PURPLE CAP) mRNA, LNP-S, PF, 30 MCG/0.3 ML DOSE 10/12/2020,09/23/2020 Family History Medical History Relation Comments No Known Problems Maternal Aunt Stroke Maternal Grandmother No Known Problems Maternal Uncle Diabetes Mother Kidney Stones Mother No Known Problems Paternal Aunt No Known Problems Paternal Grandfather No Known Problems Paternal Grandmother No Known Problems Paternal Uncle Relation Status Comments Father Maternal Aunt Maternal Grandmother Maternal Uncle Mother Alive Paternal Aunt Paternal Grandfather Paternal Grandmother Paternal Uncle Social History Tobacco Use Types Packs/Day Years Used Date Smoking Tobacco: Every Day Cigarettes 1 28.3 Started: 07/16/1996 Passive Smoke Exposure: Current Smokeless Tobacco: Never Tobacco Cessation:Ready to Q uit: Not Asked; Counseling Given: Yes Comments:on and off Alcohol Use Standard Drinks/Week [...] file Not on file Not on file Last Filed Vital Signs Vital Sign Reading Time Taken Comments Blood Pressure 124/68 07/24/2024 2:39 PM WASH AND GREASER Pulse 74 07/24/2024 2:39 PM WASH AND GREASER Temperature 37.2 C (98.9 F) 07/24/2024 2:39 PM WASH AND GREASER Respiratory Rate 20 07/24/2024 2:39 PM WASH AND GREASER Oxygen Saturation 97% 07/24/2024 2:39 PM WASH AND GREASER Inhaled Oxygen Concentration - - Weight 202.3 kg (446 lb) 07/24/2024 2:39 PM WASH AND GREASER Height 188 cm (6' 2 ) 07/24/2024 2:39 PM WASH AND GREASER Body Mass Index 57.26 07/24/2024 2:39 PM WASH AND GREASER Plan of Treatment Upcoming Encounters Date Type Department Care Team (Late st Contact Info) Description 01/22/2025 1:40 PM CDT Office Visit [facility] Family & Internal Medicine [facility] [address] [place] [phone] Gerber Irby MD [address] [address] Health Maintenance Due Date Last Done Comments Colorectal Cancer Screening Colonoscopy (10 Years) 1969 Annual Physical 1972 Pneumococcal Vaccine: Pediatrics (0 to 5 Years) and At-Risk Patients (6 to 64 Years) (1 of 2 - PCV) 1975 Hepatitis C 1987 DTaP, Tdap and Td Vaccines ( 1 - Tdap) 1988 Hepatitis B Vaccines (1 of 3 - 19+ 3-dose series) 1988 Lung Cancer Screening 2019 Zoster Vaccines (1 of 2) 2019 COVID-19 Vaccine (3 - 2023-2 5 season) 2024 10/12/2020, 09/23/2020 PHQ-2 ([facility]) 07/16/2024 01/22/2024 Meningococcal B Vaccine Aged Out No l onger eligible based on patient's age to complete this topic Meningococcal Vaccine Aged Out No demetria lavonne eligible based on patient's age to complete this topic RSV Immunizations Under 20 Months Aged Out No longer eligible b ased on patient's age to complete this topic Medical Devices Implanted Type Area Medical Record Administrator Device Identifier Shelf Expiration Date Model / Serial / Lot Stent Uret 6fr 28cm Pigtl Crv Taper Tip Bldr Mrk - [id number] Implanted:Qty : 1 on 09/16/2021 by Semaj Cantrell MD at [facility] Stent Right: Ureter Flaconi DAIJA [id number] 02/29/2024 [id number] / / [id number] Procedures Procedure Name Priority Date/Time Associated Diagnosis Comments COLLECTION VENOUS BLOOD VENIPUNCTURE Routine 07/24/2024 3:24 PM WASH AND GREASER Benign hypertension Screening for malignant neoplasm of prostate Primary hyperparathyroidism (HHS/HCC) COMPREHENSIVE METABOLIC PANEL Routine 07/24/2024 3:22 PM WASH AND GREASER Benign hypertension LIPID PANEL Routine 07/24/2024 3:22 PM WASH AND GREASER Benign hypertension PROSTATE SPECIFIC ANTIGEN,SCREENING Routine 07/24/2024 3:22 PM WASH AND GREASER Screening for malignant neoplasm of prostate PTH - INTACT Routine 07/24/2024 3:22 PM WASH AND GREASER Primary hyperparathyroidism (HHS/HCC) from Last 3 Months Results * (ABNORMAL) PTH - INTACT (07/24/2024 3:22 PM WASH AND GREASER) PTH INTACT 109.0(H) 18.4 - 80.1 PG/ML 07/24/2024 8:57 [address] [facility] 07/24/2024 3:22 PM WASH AND GREASER us Gerber Irby MD LABORATORY Final Resul t [facility] [address] [place] [address], [place] [phone] * PROSTATE SPECIFIC ANTIGEN,SCREENING (07/24/2024 3:22 PM WASH AND GREASER) PSA 0.70 <4.00 NG/ML 07/24/2024 6:21 PM WASH AND GREASER [facility] Comment: Test was performed using the Siemens method. Results obtained with other assay methods or kits cannot be used interchangeably with results obtained by the Siemens method. 07/24/2024 3:22 PM WASH AND GREASER us Gerber Irby MD LABORATORY Final Resul t Performing Organization Address City/[facility] Co de Phone Number [facility] [address] [place] [address], [place] [phone] * (ABNORMAL) COMPREHENSIVE METABOLIC PANEL (07/24/2024 3:22 PM WASH AND GREASER) GLUCOSE 94 70 - 99 MG/DL 07/24/2024 6:15 PM [facility] AND GREASER [facility] BUN 17 7 - 18 MG/DL 07/24/2024 6:15 PM [facility] AND GREASER [facility] CREATININE S/P/B 1.43(H) 0.7 - 1.3 MG/DL 07/24/2024 6:15 PM W[facility] AND GREASER [facility] SODIUM S/P/B 143 136 - 145 MMOL/L 07/24/2024 6:15 PM [facility] POTASSIUM S/P/B 4.2 3.5 - 5.1 MMOL/L 07/24/2024 6:15 PM [facility] CHLORIDE S/P/B 108 100 - 108 MMOL/L 07/24/2024 6:15 PM [facility] CO2 28.4 21 - 32 MMOL/L 07/24/2024 6:15 PM [facility] CALCIUM S/P/B 9.1 8.5 - 10.1 MG/DL 07/24/2024 6:15 PM [facility] BILIRUBIN TOTAL S/P/B 0.2 0.2 - 1.2 MG/DL 07/24/2024 6:15 PM [facility] TOTAL PROTEIN S/P/B 7.5 6.4 - 8.2 G/DL 07/24/2024 6:15 PM [facility] ALBUMIN S/P/B 3.8 3.4 - 5.0 G/DL 07/24/2024 6:15 PM [facility] AST 15 15 - 37 U/L 07/24/2024 6:15 PM [facility] ALT 31 16 - 60 U/L 07/24/2024 6:15 PM [facility] ALKALINE PHOSPHATASE S/P/B 58 50 - 136 U/L 07/24/2024 6:15 PM [facility] ANION GAP 6.6 5 - 15 MMOL/L 07/24/2024 6:15 PM [facility] BUN CREATININE RATIO 11.9 6 - 26 07/24/2024 6:15 PM [facility] A/G RATIO 1.0 1.0 - 2.0 RATIO 07/24/2024 6:15 PM WASH AND GREASER [facility] GFR ESTIMATE 58(L) >90 ML/MIN/1.7 3 M2 07/24/2024 6:15 PM [facility] Comment: NOTE: eGFR is not calculated for patients <18 years of age. This is an estimated GFR calculation using the new CKD EPI creatinine equation without race and so does not require a correction factor for race. This estimated GFR should not be used for calculating drug doses. 07/24/2024 3:22 PM WASH AND GREASER us Gerber Irby MD LABORATORY Final Resul t [facility] [address] [place] [address], * (ABNORMAL) LIPID PANEL (07/24/2024 3:22 PM WASH AND GREASER) CHOLESTEROL 185 <200.0 MG/DL 07/24/2024 6:15 PM [facility] TRIGLYCERIDES 215(H) <150 MG/DL 07/24/2024 6:15 PM [facility] HDL 31(L) >40.0 MG/DL 07/24/2024 6:15 PM [facility] LDL (CALCULATED) 111(H) <100 MG/DL 07/24/2024 6:15 PM [facility] NON HDL CHOLESTEROL 154(H) <130 MG/DL 07/24/2024 6:15 PM [facility] CHOL/HDL RATIO 6.0(H) 0.0 - 4.5 07/24/2024 6:15 PM [facility] VLDL CALCULATION 43 5 - 55 MG/DL 07/24/2024 6:15 PM [facility] LIPID INTERPRETATION 07/24/2024 6:15 PM [facility] Comment: NIH CONCENSUS REPORT RECOMMENDATIONS: ADULT CHILD LOW RISK: CHOLESTEROL <200 <170 TRIGLYCERIDE <150 --- HDL >=60 --- LDL <100 <110 BORDERLINE: CHOLESTEROL 200-239 170-199 TRIGLYCERIDE 150-199 --- HDL 40-59 --- LDL 100-159 110-129 HIGH RISK: CHOLESTEROL >=240 >=200 TRIGLYCERIDE >=200 --- HDL <40 --- LDL >=160 >=130 07/24/2024 3:22 PM W[facility] AND GREASER us Gerber Irby MD LABORATORY Final Resul t Performing Organization Address City/State/[facility] Co de Phone Number [facility] [address] [place] [address], from Last 3 Months Insurance [employer] [id number] [id number] Advance Directives * Full Code (Latest Code Status on File) Date Activated Date Inactivated Comments 09/16/2021 2:08 PM 09/16/2021 7:09 PM * Full Code Date Activated Date Inactivated Comments 12/11/2020 10:13 PM 12/12/2020 7:53 PM Care Teams Roof Assembler Relationship Specialty Start Date End Date Gerber Irby MD [address] [facility] [address] [place] [address] PCP - General FAMILY PRACTICE 12/15/15 Brady Ramirez MD Three [facility]. [address] [place] [address] Cando Key Attendant CARDIOVASCULAR DISEASE 12/15/15
== END 2024-10-20 16:03 | disposition home or self-care (01) ==
PROVIDERS: PCP Family Medicine Sports Medicine; Visit Provider Urology
DX: N20.0 Calculus of kidney (principal)
CPT/HCPCS: 74018

== ENCOUNTER 2025-05-31 16:47 | Emergency (ER) | payer OTHER, SELFPAY ==
[2025-05-31 16:55] VITALS: BP 173/92; PULSE 80; RESP 16; TEMP 36.9; O2SAT 96
--- NOTE | 2025-05-31 17:40 | ED.SKABFB ---
HPI - Skin/Abscess/Foreign Bdy General Chief complaint: Skin/Abscess/Foreign Body Stated complaint: Sore on stomach patient presents to the [facility] care with complaints of circular red area that is continuing getting more red and painful over the last 2 days. Patient noted he has had several these areas on the back of his neck in abdomen in the past usually they open up on their own and then resolved. No medication remedies attempted symptoms. does note that in this area there was a small under skin for many years prior to symptoms starting the last few days. Denies Fever, chills, body aches or drainage area. Related Data Home Medications ?Medication ?Instructions ?Recorded ?Confirmed ?Last Taken ?Type amlodipine 10 mg tablet 10 mg PO DAILY 05/01/23 10/23/24 Unknown History carvedilol 12.5 mg tablet 12.5 mg PO BID 05/01/23 10/23/24 05/11/23 History lisinopril 40 mg tablet 40 mg PO DAILY 05/01/23 10/23/24 Unknown History Allergies Allergy/AdvReac Type Severity Reaction Status Date / Time No Known Allergies Allergy Verified 05/31/25 17:13 Review of Systems Constitutional: Constitutional: Reports as per HPI, Denies chills, Denies fatigue, Denies fever(s) and Denies weakness Eyes: Eyes: Reports no additional eye complaints ENT: Reports system reviewed and no additional complaints, except as documented Cardiovascular: Cardiovascular: Reports no additional cardiovascular complaints Respiratory: Respiratory: Reports no additional respiratory complaints Gastrointestinal: Gastrointestinal: Reports no additional gastrointestinal complaints Genitourinary: Genitourinary: Reports no additional male genitourinary complaints Musculoskeletal: Musculoskeletal: Reports no additional musculoskeletal complaints Integumentary/Breasts: Skin/Breast: Reports as per HPI, Reports erythema, Denies rash and Denies skin ulcer Comments: Circular area of redness with tenderness Neurologic: Reports as per HPI and Denies weakness Psychiatric: Psychiatric: Reports no additional psychiatric complaints Endocrine: Endocrine: Reports no additional endocrine complaints Hematologic/Lymphatic: Hematologic/Lymphatic: Reports no additional hematologic/lymphatic complaints Allergic/Immunologic: Allergic/Immunologic: Reports no additional allergic/immunologic complaints PMFSH Past Medical History Medical History Hepatic steatosis Noted on imaging Gout Continuous tobacco abuse Morbid obesity with BMI of 50.0-59.9, adult OPAL (obstructive sleep apnea) Bipap COPD (chronic obstructive pulmonary disease) borderline Hypertension Hyperlipidemia Surgical History Surgical History History of parathyroidectomy S/P cystoscopy with ureteral stent placement Family History Family History Other Hypertension Sibling Thyroid cancer Social History Social History Social History: He is single. Patient is smoked a pack of cigarettes per day since he was in his mid 20s. He had drinks in moderation on the weekends. He denies illicit substance use. Code status: Full code Surrogate decision maker: Sister Smoking packs per day: 1 Smoking cigarettes per day: 20.0 Years smoked: 25 Smoking pack-years: 25.00 Smoking status: Current every day smoker Tobacco type: cigarettes Alcohol intake: current Drinks per week: 4 Alcohol use details: RARE Substance use: never Substance use type: does not use Do You Feel Safe in your Home?: Yes Lack of Transportation: No Lack of Food: Never True Current Housing: I Have Housing Concerned About Future Housing: No Difficulty Paying Gas/Electric Bills: No Difficulty Paying for Meds: No Currently Unemployed: No Education: Associate Degree Difficulty w/ Childcare or Family Care: No Living arrangements: with family Additional living arrangements comments: MOTHER Spiritual care concerns: No Exam Const: General: healthy appearing and no acute distress Nutritional Appearance: well nourished Orientation/consciousness: patient oriented x3 Limitations: no limitations Resp: Effort & Inspection: normal respiratory effort Auscultation: clear to auscultation bilaterally Cardio: Rate: regular rate Rhythm: regular rhythm Skin: Rashes: no rashes Wounds: wounds noted Other: large area of diffuse erythema with center circular abscess deeper erythema with obvious induration, pointing, and fluctuance. No active drainage or crusting Neuro: General: patient oriented x3 and moves all extremities Speech: normal speech Gait exam (Neuro): Normal gait present Psych: Mental Status: mental status grossly normal Affect: normal affect Attitude: cooperative Course Course Level of Care: Express Care Visit Vital Signs Vital signs: Vital Signs Temperature 98.4 F 05/31/25 16:55 Pulse Rate 80 05/31/25 16:55 Respiratory Rate 16 05/31/25 16:55 Blood Pressure 173/92 H 05/31/25 16:55 Pulse Oximetry 96 05/31/25 16:55 Oxygen Delivery Room Air 05/31/25 16:55 Temperature 98.4 F 05/31/25 16:55 Pulse Rate 80 05/31/25 16:55 Respiratory Rate 16 05/31/25 16:55 Blood Pressure 173/92 H 05/31/25 16:55 Pulse Oximetry 96 05/31/25 16:55 Oxygen Delivery Room Air 05/31/25 16:55 Procedures Abscess I/D abdomen: Date of Incision: 05/31/25 Time of Incision: 17:32 Side (if applicable): right Local Anesthetic: lidocaine 1% Amount of anesthesia used (mL): 2 Technique: incised with #11 blade Amount of fluid expressed (mL): 15 Irrigation: No Packing used?: none I&D Results: Pus and Blood Abcess I&D Additional Comments: triple antibiotic and bandage applied MDM - Skin/Abscess/Foreign Bdy MDM Narrative Medical decision making narrative: I&D completed in [facility] Care today. educated patient preventative care The patient was evaluated by myself in the [facility] care. History is obtained from patient who is an independent historian and physical exam was performed. Available medical records were reviewed at this time. Exam findings show no acute concerns or changes; patient is non-toxic appearing and is in no distress. Patient is appropriate for outpatient treatment and follow-up. I have evaluated and discussed social determinants of health with the patient that could potentially impact subsequent diagnosis and treatment plans. Differential diagnosis and treatment plan were discussed with the patient. Patient agrees with discussion and after shared medical decision making agrees with plan of care. All questions were answered to the patient's satisfaction. Differential Diagnosis Differential diagnosis: Likely abscess of skin or subcutaneous tissue, viral exanthem, allergic reaction to drug, cellulitis, eczema, impetigo and contact dermatitis Medical Records Attestation: I reviewed the patient's medical records. Lab Data Attestation: I reviewed the patient's lab results. Discharge Plan Discharge Clinical Impression: Abdominal wall abscess Patient Disposition: Home Condition: Stable Instructions: Antibiotic Form, Abscess Follow-up (ED), Abscess Incision and Drainage (DC) Additional Instructions: DO NOT pick at the area. This will only make the area worse and drive infection deeper. DO NOT pick at the area. This will only make the area worse and drive infection deeper. Clean with soap and water only; Avoid using alcohol and peroxide. apply warm compresses for 20 minute several times a day to help soften the drainage, this may help open the area and cause drainage to come out. Alternate Tylenol/ibuprofen for as needed for pain Acetaminophen(Tylenol) 650-1000mg every 4-6hours with max of 4000mg/day. Nonsteroidal anti-inflammatory agent (NSAIDs-ibuprofen): 400mg every 4-6hours with max 2400mg/day Take antibiotic until it's gone. If you began to have multiple or reoccurring abscesses in these areas may use daily tea tree body washes or weekly chlorhexidine/Hibiclens washes, bleach baths, or Phisohex change razors or any shaving products you have used around this area. Using fresh towel daily while areas flared up. Please schedule a follow up visit with your personal physician for further evaluation and treatment within 3-5days OR if your symptoms persist, change or worsen significantly before you can contact your personal physician then please, without delay, go to the emergency department for further evaluation. Patient Language: Panamanian Prescriptions: New sulfamethoxazole-trimethoprim [Bactrim DS] 800-160 mg tablet 1 tablet PO Q12H Qty: 20 0RF No Action dexamethasone 1 mg tablet 1 mg PO DAILY Qty: 1 0RF Rx Instructions: take around 11 pm night before and do blood test around 8 am carvedilol 12.5 mg tablet 12.5 mg PO BID lisinopril 40 mg tablet 40 mg PO DAILY amlodipine 10 mg tablet 10 mg PO DAILY hydrochlorothiazide 12.5 mg tablet 12.5 mg PO DAILY Qty: 30 0RF Follow-up/Referrals: Surekha,Gerber Lawrence MD [Primary Care Provider, Unknown] Time of Disposition: 17:42
== END 2025-05-31 17:48 | disposition home or self-care (01) ==
PROVIDERS: Emergency Provider Nurse Practitioner Family; PCP Family Medicine Sports Medicine
DX: L02.211 Cutaneous abscess of abdominal wall (principal); F17.210 Nicotine dependence, cigarettes, uncomplicated; I10 Essential (primary) hypertension; E78.5 Hyperlipidemia, unspecified; G47.33 Obstructive sleep apnea (adult) (pediatric); E66.01 Morbid (severe) obesity due to excess calories; Z68.43 Body mass index [BMI] 50.0-59.9, adult; M10.9 Gout, unspecified; K76.0 Fatty (change of) liver, not elsewhere classified; Z90.89 Acquired absence of other organs
CPT/HCPCS: 10060; 99213; G0463

== ENCOUNTER 2025-06-24 15:05 | Outpatient (CLI) | payer OTHER, SELFPAY ==
--- NOTE | ~2025-06-24 | XR_ITS ---
EXAMINATION: XR abdomen/kub 1V, 06/24/2025 15:14 ZINC PLATING MACHINE OPERATOR HISTORY: bilateral kidney stones COMPARISON: No comparisons available. Technique: 3 view. Findings: Bowel gas pattern unremarkable. No obstruction. There are left-sided renal calculi the largest mid pole 5 x 6 mm. No acute osseous abnormality. Impression: 1. No acute abnormality. Reviewed, dictated and finalized at location P. PLATING MACHINE OPERATOR Impression: 1. No acute abnormality.
--- OUTSIDE RECORDS SUMMARY | 2025-06-24 20:00 | XMS_ITS | Patient Health Record ---
Author Organization [facility] Address [address] [place] [id number] Care Team Providers Care Bar Tacker Sewing Machine Name Role Phone Gerber Irby Primary Care Provider Unavail able James Ward Unavailable [phone] ALLERGIES Allergen (clinical drug ingredient) Drug/Non Drug Allergy documented on EMR Reaction Allergy Type Onset Date Status Bactrim Unknown Drug Allergy Active REASON FOR REFERRAL No Information MEDICATIONS Medication SIG (Take, Route, Frequency, Duration) Notes Start Date End Date Status Vitamin D (Ergocalciferol) 19434 UNIT 1 capsule Orally Once a week [...] You are a current every day smoker Section Notes: Pt drinks alcohol socially a nd denies any illicit drug use. Pt drinks alcohol socially a nd denies any illicit drug use. Pt drinks alcohol socially a nd denies any illicit drug use. Pt drinks alcohol socially a nd denies any illicit drug use. PROBLEMS Problem Type ICD Code Onset Dates Problem Status W/U Status Risk SNOMED Code Notes Problem Calculus of kidney (N20.0) Active confirmed Calculus of kidney (62123954) Problem Acute kidney failure, unspecified (N17.9) Active confirmed Acute renal failure syndrome (50530654) Due to bilateral ureteral obstruction Problem Hydronephrosis with renal and ureteral calculous obstruction (N13.2) Active confirmed Hydronephrosis with renal and ureteral calculous obstruction (911864610) 70-80% calcium oxalate 20-30% uric acid Problem Essential (primary) hypertension (I10) Active confirmed Essential hypertension (11498571) Problem Hyperlipidemia, unspecified (E78.5) Active confirmed Hyperlipidemia (70428512) Problem Hypercalcemia (E83.52) Active confirmed Hypercalcemia (45561840) Due to primary hyperparathyroidis m Problem Vitamin D deficiency, unspecified (E55.9) Active confirmed Vitamin D deficiency (36006240) PLAN OF TREATMENT Future Test Test Name Order Date PTH, INTACT AND CALCIUM 09/23/2017 Vitamin D, 25-Hydroxy 09/23/2017 RENAL PANEL 10/24/2017 PTH, INTACT AND CALCIUM 10/24/2017 Insurance Providers Payer Name Payer Address Payer Phone Subscriber Number Group Number Insured Name Patient Relationship to Insured Coverage Start Date Coverage End Date [facility] [address] [address] [place] [address] [id number] Robert Dugan Self - patient is the [...]
--- OUTSIDE RECORDS SUMMARY | 2025-06-24 20:02 | XMS_ITS | Encounter Summary ---
Author Organization [facility] Address [address] [place] [address] Care Team Providers Care Dining Room Hostess Name Role Phone Gerber Irby MD Primary Care Provider [phone] Brady Ramirez MD Unavailable [phone] Encounter Details Date Type Department Care Team (Late st Contact Info) Description 04/23/2024 [employer] Message Enc [facility] Medical Group Family & Internal Medicine [address] [address] Gerber Irby MD [address] [address] Infection in left leg Social History Tobacco Use Types Packs/Day Years Used Date Smoking Tobacco: Every Day Cigarettes 1 28.9 Started: 07/16/1996 Passive Smoke Exposure: Current Smokeless Tobacco: Never Comments:on and off Alcohol Use Standard Drinks/Week Comments Yes 6.7 (1 standard drink = 0.6 oz p ure alcohol) 2-4/week liquor PHQ-2 Answer Date Recorded Patient Health Questionnaire-2 Score 0 01/22/2024 Sex and Gender Information Value Date Recorded Sex Assigned at Male 06/16/2025 1:49 PM AGRISCIENCE TEACHER Legal Sex Male 10:20 PM CDT Gender Identity Male 06/16/2025 1:49 PM AGRISCIENCE TEACHER Sexual Orientation Not on file Occupation Industry [...] Care Team (Late st Contact Info) Description 12/15/2025 3:20 PM CDT Office Visit [facility] Medical Group Family & Internal Medicine [address] [address] Gerber Irby MD [address] [place] [address] documented as of this encounter Visit Diagnoses Not on filedocumented in this encounter Additional Health Concerns Assessment Noted Time PHQ-9 Depression Total Score: 0 10/01/19 22 9:46 AM CDT documented as of this encounter Care Teams Dining Room Hostess Relationship Specialty Start Date End Date Gerber Irby MD 94[address] [facility] [address] [place] [address] PCP - General FAMILY PRACTICE 12/15/15 Brady Ramirez MD [facility] [address] [place] [address] Breanna Diesel Engine Tester CARDIOVASCULAR DISEASE 12/15/15 documented as of this encounter
--- OUTSIDE RECORDS SUMMARY | 2025-06-24 20:02 | XMS_ITS | Encounter Summary ---
Author Organization [facility] Address [address] [place] [address] Care Team Providers Care Director Plans Name Role Phone Gerber Irby MD Primary Care Provider [phone] Brady Ramirez MD Unavailable [phone] Encounter Details Date Type Department Care Team (Late st Contact Info) Description 04/06/2025 Service Routet Message Enc [facility] Medical Group Family & Internal Medicine [address] [address] Gerber Irby MD [address] [address] Left leg infection Social History Tobacco Use Types Packs/Day Years Used Date Smoking Tobacco: Every Day Cigarettes 1 28.9 Started: 07/16/1996 Passive Smoke Exposure: Current Smokeless Tobacco: Never Comments:on and off Alcohol Use Standard Drinks/Week Comments Yes 6.7 (1 standard drink = 0.6 oz p ure alcohol) 2-4/week liquor PHQ-2 Answer Date Recorded Patient Health Questionnaire-2 Score 0 01/22/2025 Sex and Gender Information Value Date Recorded Sex Assigned at Male 06/16/2025 1:49 PM JINGLE WRITER Legal Sex Male 10:20 PM CDT Gender Identity Male 06/16/2025 1:49 PM JINGLE WRITER Sexual Orientation Not on file Occupation Industry [...] Progress Notes * Tiffanie Hernandez RN - 04/07/2025 10:03 AM CDT Pt scheduled apt for 04-14. Does he need to be seen sooner? Thank you! documented in this encounter Plan of Treatment Upcoming Encounters Date Type Department Care Team (Late st Contact Info) Description 12/15/2025 3:20 PM CDT Office Visit [facility] Medical Group Family & Internal Medicine [facility] [address] [place] [address] Gerber Irby MD [address] [place] [address] documented as of this encounter Visit Diagnoses Not on filedocumented in this encounter Additional Health Concerns Assessment Noted Time PHQ-9 Depression Total Score: 0 10/01/19 22 9:46 AM CDT documented as of this encounter Care Teams Director Plans Relationship Specialty Start Date End Date Gerber Irby MD 9401 [facility] [address] [place] [address] PCP - General FAMILY PRACTICE 12/15/15 Brady Ramirez MD Three [facility]. [address] [place] [address] Breanna Sheet Rock Applier CARDIOVASCULAR DISEASE 12/15/15 documented as of this encounter
--- OUTSIDE RECORDS SUMMARY | 2025-06-24 20:02 | XMS_ITS | Encounter Summary ---
Author Organization [facility] Address [address] [place] [address] Care Team Providers Care Room Cleaner Name Role Phone Gerber Irby MD Primary Care Provider [phone] Brady Ramirez MD Unavailable [phone] Encounter Details Date Type Department Care Team (Late st Contact Info) Description 06/02/2025 [employer] Message Enc [facility] Medical Group Family & Internal Medicine [address] [address] Gerber Irby MD [address] [address] Follow up needed for urgent care visit. Social History Tobacco Use Types Packs/Day Years Used Date Smoking Tobacco: Every Day Cigarettes 1 28.9 Started: 07/16/1996 Passive Smoke Exposure: Current Smokeless Tobacco: Never Comments:on and off Alcohol Use Standard Drinks/Week Comments Yes 6.7 (1 standard drink = 0.6 oz p ure alcohol) 2-4/week liquor PHQ-2 Answer Date Recorded Patient Health Questionnaire-2 Score 0 04/14/2025 Sex and Gender Information Value Date Recorded Sex Assigned at Male 06/16/2025 1:49 PM CLEANERS Legal Sex Male 10:20 PM CDT Gender Identity Male 06/16/2025 1:49 PM CLEANERS Sexual Orientation Not on file Occupation Industry [...] Assessment Author Status No 12/11/2020 8:18 PM ULICEST Zane Guerra RN Active * Do you have difficulty dressing or bathing? Answer Date of Assessment Author Status No 12/11/2020 8:18 PM CDT Zane Guerra RN Active * Because of a physical, mental, or emotional condition, do you have difficulty doing errands alone such as visiting a doctor's office or shopping? Answer Date of Assessment Author Status No 12/11/2020 8:18 PM Zane Downs RN Active documented as of this encounter Mental Status * Because of a physical, mental, or emotional condition, do you have serious difficulty concentrating, remembering, or making decisions? Answer Entry Date Author Status No 12/11/2020 8:18 PM Zane Downs RN Active documented in this encounter Progress Notes * Marcos Dumont - 06/15/2025 9:30 AM CST Pt started Bactrum DS 06/03-06/13. Apt scheduled 06/16 @2pm NERS * Tiffanie Hernandez RN - 06/08/2025 11:56 AM CST LVM for pt to call office. Want to make sure pt started the Bactrim antibiotic and if so, what day?Also, would like to see pt tomorrow in office. Please ask him when he started the Bactrim and make him an apt tomorrow with . Can use the same day slot. NERS * Tiffanie Hernandez RN - 06/02/2025 3:54 PM CST I instructed pt to start the Bactrim DS bid x 10 days. Culture and ER notes placed on your desk. Would you like to see pt after he completes the Bactrim for a follow up? Thank you! NERS * Tiffanie Hernandez RN - 06/02/2025 1:51 PM CST Called [facility] and spoke with Jose. She states she will fax all records to [phone]. NERS documented in this encounter Plan of Treatment Upcoming Encounters Date Type Department Care Team (Late st Contact Info) Description 12/15/2025 3:20 PM CDT Office Visit [facility] Medical Group Family & Internal Medicine [address] [address] Gerber Irby MD 9401 [facility] [address] [place] [address] documented as of this encounter Visit Diagnoses Not on filedocumented in this encounter Additional Health Concerns Assessment Noted Time PHQ-9 Depression Total Score: 0 04/14/20 25 2:55 PM CDT documented as of this encounter Care Teams Room Cleaner Relationship Specialty Start Date End Date Gerber Irby MD 9401 [facility] [address] [place] [address] PCP - General FAMILY PRACTICE 12/15/15 Brady Ramirez MD [facility] [address] [place] [address] Breanna Air Crew Officer CARDIOVASCULAR DISEASE 12/15/15 documented as of this encounter
--- OUTSIDE RECORDS SUMMARY | 2025-06-24 20:02 | XMS_ITS | Clinical Summary ---
Author Organization [facility] Address [address] [place] [address] Phone Care Team Providers Care Certified Recreational Therapist Name Role Phone Gerber Irby MD Primary Care Provider [phone] Allergies No known active allergies Medications allopurinoL (ZYLOPRIM) 300 mg tablet Take 1 Tablet (300 mg) by mouth once daily. 90 Tablet 2 01/13/2020 4:43 PM CDT 0 Active amLODIPine (NORVASC) 2.5 mg tablet Take 1 Tablet (2.5 mg) by mouth daily. 30 Tablet 01/13/2020 4:43 PM CDT 0 Active lisinopriL (PRINIVIL) 10 mg tablet Take 1 Tablet (10 mg) by mouth daily. 30 Tablet 01/13/2020 4:43 PM CDT 0 Active simvastatin (ZOCOR) 20 mg tablet Take 1 Tablet (20 mg) by mouth daily. 30 Tablet 01/13/2020 4:43 PM CDT 0 Active tamsulosin (FLOMAX) 0.4 mg capsule Take 1 Capsule (0.4 mg) by mouth daily after supper. 30 Capsule 01/13/2020 4:43 PM CDT 0 Active HYDROcodone-ac etaminophen (NORCO) 5-325 mg tablet Take 1 Tablet by mouth every 6 hours as needed for pain for 3 days 12 Tablet 07/15/2023 1:07 PM DUST COLLECTOR OPERATOR 3 Active amLODIPine (NORVASC) 10 mg tablet Take 1 Tablet (10 mg) by mouth daily. 90 Tablet 1 11/23/2023 5:23 PM CDT 4 Active lisinopriL (PRINIVIL) 40 mg tablet Take 1 tablet (40 mg total) by mouth daily. 90 Tablet 1 11/23/2023 5:23 PM CDT 4 Active cefdinir (OMNICEF) 300 mg capsule Take 1 Capsule (300 mg) by mouth every 12 hours. 13 Capsule 08/20/2023 6:22 PM DUST COLLECTOR OPERATOR 4 Active levoFLOXacin (LEVAQUIN) 750 mg tablet Take 1 Tablet (750 mg) by mouth daily. 28 Tablet 08/27/2023 6:25 PM DUST COLLECTOR OPERATOR 4 Active carvediloL (COREG) 12.5 mg tablet Take 1 tablet (12.5 mg total) by mouth 2 (two) times daily. 180 Tablet 12/21/2023 6:52 PM CDT 4 Active eszopiclone (LUNESTA) 2 mg Tablet Take tablet with you to sleep center for sleep study 1 Tablet 03/09/2024 2:53 PM CDT 4 Active calcitRIOL (ROCALTROL) 0.25 mcg capsule Take 1 capsule (0.25 mcg total) by mouth daily 30 Capsule 03/09/2024 2:51 PM CDT 4 Active calcium as carbonate (OS-GAVIN) 1,250 mg (500 mg elemental) tablet Take 1 tablet (1,250 mg total) by mouth 3 (three) times a day 270 Tablet 03/09/2024 2:51 PM CDT 4 Active traMADoL (ULTRAM) 50 mg tablet Take 1 Tablet (50 mg) by mouth every 6 hours as needed FOR PAIN. 10 Tablet 03/09/2024 2:51 PM CDT 4 Active amLODIPine (NORVASC) 10 mg tablet Take 1 Tablet (10 mg) by mouth daily. 90 Tablet 1 03/14/2024 2:19 PM CDT 4 Active lisinopriL (PRINIVIL) 40 mg tablet Take 1 tablet (40 mg total) by mouth daily. 90 Tablet 1 03/14/2024 2:19 PM CDT 4 Active carvediloL (COREG) 12.5 mg tablet Take 1 tablet (12.5 mg total) by mouth 2 (two) times daily. 180 Tablet 05/05/2024 5:37 PM CDT 4 Active amLODIPine (NORVASC) 10 mg tablet Take 1 Tablet (10 mg) by mouth daily. 90 Tablet 1 07/17/2024 5:15 PM DUST COLLECTOR OPERATOR 4 Active lisinopriL (PRINIVIL) 40 mg tablet Take 1 Tablet (40 mg) by mouth daily. 90 Tablet 1 07/17/2024 5:15 PM DUST COLLECTOR OPERATOR 4 Active cholecalcifero l 1,250 mcg (50,000 unit) Capsule Take 1 Capsule (50,000 Units) by mouth every 7 days. 12 Capsule 08/17/2024 2:11 PM DUST COLLECTOR OPERATOR 5 Active hydroCHLOROthi azide 12.5 mg tablet Take 1 Tablet (12.5 mg) by mouth daily. 30 Tablet 10/05/2024 1:21 PM CDT 5 Active tirzepatide, weight loss, (Zepbound) 2.5 mg/0.5 mL Pen Injector Inject 0.5 mL (2.5 mg) by subcutaneous injection every 7 days. 2 mL 5 Active amLODIPine (NORVASC) 10 mg tablet Take 1 Tablet (10 mg) by mouth daily. 90 Tablet 1 12/31/2024 4:02 PM CDT 5 Active carvediloL (COREG) 12.5 mg tablet Take 1 Tablet (12.5 mg) by mouth 2 times daily. 180 Tablet 1 12/31/2024 4:02 PM CDT 5 Active lisinopriL (PRINIVIL) 40 mg tablet Take 1 Tablet (40 mg) by mouth daily. 90 Tablet 1 12/31/2024 4:02 PM CDT 5 Active hydroCHLOROthi azide 12.5 mg tablet Take 1 Tablet (12.5 mg) by mouth daily. 90 Tablet 1 01/26/2025 5:43 PM CDT 5 Active dexAMETHasone (DECADRON) 1 mg Tablet Take one tablet (1 mg) orally daily for testing purpose; take around 11 pm night before and do blood test around 8 am 1 Tablet 04/29/2025 6:02 PM CDT 5 Active amLODIPine (NORVASC) 10 mg tablet Take 1 Tablet (10 mg) by mouth daily. 90 Tablet 3 06/18/2025 5:59 PM DUST COLLECTOR OPERATOR 5 Active carvediloL (COREG) 12.5 mg tablet Take 1 tablet (12.5 mg total) by mouth 2 (two) times daily. 180 Tablet 3 06/18/2025 5:59 PM DUST COLLECTOR OPERATOR 5 Active hydroCHLOROthi azide 12.5 mg tablet Take 1 tablet (12.5 mg total) by mouth daily. 90 Tablet 3 06/18/2025 5:59 PM DUST COLLECTOR OPERATOR 5 Active lisinopriL (PRINIVIL) 40 mg tablet Take 1 tablet (40 mg total) by mouth daily. 90 Tablet 3 06/18/2025 5:59 PM DUST COLLECTOR OPERATOR 5 Active sulfamethoxazo le-trimethopri m (BACTRIM DS) 800-160 mg tablet Take 1 Tablet by mouth every 12 hours for 10 days. 20 Tablet 06/01/2025 5:48 PM DUST COLLECTOR OPERATOR 5 06/11/20 25 Active Problems Problem Noted Date Diagnosed Date Benign hypertension 01/13/2020 Morbid obesity with BMI of 50.0-59.9, adult 12/16 Kidney stone 01/13/2020 GERD (gastroesophageal reflux disease) 0 OPAL on CPAP 01/13/2020 Flank pain 01/13/2020 Hydronephrosis concurrent wi th and due to calculi of kidney and ureter 01/13/2020 Tobacco dependence 01/13/2020 Medical non-compliance 01/13/2020 Encounters Date Type Department Care Team Description 05/19/2025 External Device Data STL ABSTRACTION Provider, Abstract 05/13/2025 External Device Data STL ABSTRACTION Provider, Abstract 05/13/2025 External Device Data STL ABSTRACTION Provider, Abstract from Last 3 Months Immunizations Immunization Administration Dates Next Due (Genprex)(12 YR UP) COVID-19 VACCINE - EMERGENCY USE AUTHORIZATION, MRNA, [id number]) 30 MCG/0.3 ML IM SUSP 10/12/2020,09/23/2020 INFLUENZA [...] 6:18 AM CDT Height 188 cm (6' 2) 01/13/2020 6:18 AM CDT Body Mass Index [...] (1 of 2) 2019 INFLUENZA VACCINE (#1) 2025 2, 04/30/2021, 03/30/2020, Additional history exists COVID-19 Vaccine ( - 2024-2 6 season) 2025 10/12/2020, 09/23/2020 Insurance RX [employer] (INTERNAL) [facility] RX [employer] RX Member Subscriber Plan / Payer (Ef fective 2024-Present) Name:Robert Stroud [place] Relation to Subscriber:Self Name:Robert Stroud Subscriber ID:Not on file Payer ID:Not on file Type:Not on file Address: [place] [facility] [employer] Advance Directives For more information, please contact: [phone] * Full Code (Latest Code Status on File) Date Activated Date Inactivated Comments 01/13/2020 10:17 AM 01/13/2020 8:56 PM Care Teams Certified Recreational Therapist Relationship Specialty [place] [address] [address] [place] [address] [place] [phone] PCP - General Family Practice 01/13/20
--- OUTSIDE RECORDS SUMMARY | 2025-06-24 20:02 | XMS_ITS | Clinical Summary ---
Author Organization [facility] Address [address] [place] [address] Care Team Providers Care Communication Assistant Name Role Phone Gerber Irby MD Primary Care Provider [phone] Brady Ramirez MD Unavailable Allergies No known active allergies Medications amLODIPine (NORVASC) 10 MG tabletIndication s:Benign hypertension Take 1 tablet (10 mg total) by mouth daily. 90 tablet 3 06/16/20 25 Active carvedilol (COREG) 12.5 MG tabletIndication s:Benign hypertension Take 1 tablet (12.5 mg total) by mouth 2 (two) times daily. 180 tablet 3 06/16/20 25 Active hydroCHLOROthiaz violet (MICROZIDE) 12.5 MG tabletIndication s:Benign hypertension Take 1 tablet (12.5 mg total) by mouth daily. 90 tablet 3 06/16/20 25 Active lisinopril (PRINIVIL) 40 MG tabletIndication s:Benign hypertension Take 1 tablet (40 mg total) by mouth daily. 90 tablet 3 06/16/20 25 Active carvedilol (COREG) 12.5 MG tabletIndication s:Benign hypertension Take 1 tablet (12.5 mg total) by mouth 2 (two) times daily. 180 tablet 1 01/01/20 25 025 Discontinued(Re order) lisinopril (PRINIVIL) 40 MG tabletIndication s:Benign hypertension Take 1 tablet (40 mg total) by mouth daily. 90 tablet 1 01/01/20 25 025 Discontinued(Re order) amLODIPine (NORVASC) 10 MG tabletIndication s:Benign hypertension Take 1 tablet (10 mg total) by mouth daily. 90 tablet 1 01/01/20 25 025 Discontinued(Re order) hydroCHLOROthiaz violet (MICROZIDE) 12.5 MG tabletIndication s:Benign hypertension Take 1 tablet (12.5 mg total) by mouth daily. 90 tablet 1 01/23/20 25 025 Discontinued(Re order) dexamethasone (DECADRON) 1 MG tablet Take one tablet (1 mg) orally daily for testing purpose; take around 11 pm night before and do blood test around 8 am 04/28/20 25 025 Discontinued sulfamethoxazole -trimethoprim (BACTRIM DS) 800-160 MG tablet 06/01/20 025 Discontinued Active Problems Problem Noted Date Diagnosed Date Hypercalcemia 04/11/2022 Vitamin D deficiency 04/11/2022 Multiple endocrine adenomas 09/06/2021 GERD (gastroesophageal reflux disease) 0 Morbid obesity with body mass index of 50.0-59.9 in adult 01/13/2020 Medical non-compliance 01/13/2020 Tobacco dependence 01/13/2020 Encounter for postoperative care 02/28/2017 Primary hyperparathyroidism 02/28/2017 JON (acute kidney injury) 11/11/2016 Calculus [...] Hyperlipidemia 03/05/2014 06/22/2021 Calculus of kidney 11/13/2013 1 Encounters Date Type Department Care Team Description 06/16/2025 2:00 PM APPLIED STATISTICIAN Office Visit [facility] Medical Group Family & Internal Medicine [facility] [address] [place] [address] Gerber Irby MD Hypertension (Follow up hypertension / gerd / completed ABT SAT sore boil right side ) 06/16/2025 Travel 06/02/2025 MyChart Message [employer] [facility] Family & Internal [address] [address] Gerber Irby MD Follow up needed for urgent care visit. 05/31/2025 Scan [facility] INFO SRVCS Scanned, Doc Med Group 04/22/2025 MyChart Message Enc [facility] Internal [address] [address] Gerber Irby MD Leg infection update 04/14/2025 3:00 PM CDT Office Visit [facility] Family Internal [address] [address] Gerber Irby MD Leg Pain (Pt c/o left lower pain states it my be infected sx started a few days ago ) 04/14/2025 Travel 04/06/2025 [email or web address] Message [email or web address] [facility] Family & Internal [address] [address] Gerber Irby MD Left leg infection from Last 3 Months Immunizations Immunization Administration Dates Next Due Influenza (Generic) 04/30/2021,,05/07/2019,2017,05/23/2017 Influenza Adult (Generic) 05/10/2022 PFIZER COVID-19 (ORIGINAL [...] Tobacco: Never Tobacco Cessation:Ready to Q uit: No; Counseling Given: Yes Comments:on and off Alcohol Use Standard Drinks/Week Comments Yes 6.7 (1 standard drink = 0.6 oz p ure alcohol) 2-4/week liquor PHQ-2 Answer Date Recorded Patient Health Questionnaire-2 Score 0 04/14/2025 Sex and Gender Information Value Date Recorded Sex Assigned at Male 06/16/2025 1:49 PM APPLIED STATISTICIAN Legal Sex Male 10:20 PM CDT Gender Identity Male 06/16/2025 1:49 PM APPLIED STATISTICIAN Sexual Orientation Not on file 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 Not on file Last Filed Vital Signs Vital Sign Reading Time Taken Comments Blood Pressure 152/90 06/16/2025 2:20 PM APPLIED STATISTICIAN Pulse 72 06/16/2025 2:20 PM APPLIED STATISTICIAN Temperature 36.6 C (97.8 F) 06/16/2025 1:49 PM APPLIED STATISTICIAN Respiratory Rate 18 06/16/2025 1:49 PM APPLIED STATISTICIAN Oxygen Saturation 95% 06/16/2025 1:49 PM APPLIED STATISTICIAN Inhaled Oxygen Concentration - - Weight 207.6 kg (457 lb 9.6 oz) 06/16/2025 1:49 PM APPLIED STATISTICIAN Height 188 cm (6' 2) 06/16/2025 1:49 PM APPLIED STATISTICIAN Body Mass Index 58.75 06/16/2025 1:49 PM APPLIED STATISTICIAN Plan of Treatment Upcoming Encounters Date Type Department Care Team (Late st Contact Info) Description 12/15/2025 3:20 PM CDT Office Visit [facility] Family & Internal Medicine [address] [address] Gerber Irby MD [address] [address] Health Maintenance Due Date Last Done Comments Colorectal Cancer Screening Colonoscopy (10 Years) 1969 Annual Physical 1972 Hepatitis C 1987 DTaP, Tdap and Td Vaccines (1 - Tdap) 1988 Hepatitis B Vaccines (1 of 3 - 19+ 3-dose series) 1988 Pneumococcal Vaccine: 50+ Years (1 of 2 - PCV) 1988 Lung Cancer Screening 2019 Zoster Vaccines (1 of 2) 2019 COVID-19 Vaccine (3 - season) 2025 10/12/2020, 09/23/2020 Influenza Adult (#1) 2025 05/10/2022, 04/30/2021, 03/30/2020, Additional history exists PHQ-2 (Physician Tejon) Completed 04/14/2025 Hepatitis A Vaccines Aged Out No long er eligible based on patient's age to complete this topic Meningococcal B Vaccine Aged Out No l onger eligible based on patient's age to complete this topic Meningococcal Vaccine Aged Out No demetria lavonne eligible based on patient's age to complete this topic RSV Immunizations Under 20 Months Aged Out No longer eligible based on patient's age to complete this topic Medical Devices Implanted Type Area Lead Portfolio Manager Device Identifier Shelf Expiration Date Model / Serial / Lot Stent Uret 6fr 28cm Pigtl Crv Taper Tip Bldr Mrk - [id number] Implanted:Qty : 1 on 09/16/2021 by Semaj Cantrell MD at [facility] Stent Right: [employer] DAIJA [id number] 02/29/2024 [id number] / / [id number] Insurance Advance Directives * Full Code (Latest Code Status on File) Date Activated Date Inactivated Comments 09/16/2021 2:08 PM 09/16/2021 7:09 PM * Full Code Date Activated Date Inactivated Comments 12/11/2020 10:13 PM 12/12/2020 7:53 PM Care Teams Communication Assistant Relationship Specialty Start Date End Date Gerber Irby MD [address] [facility] [address] [place] [address] PCP - General FAMILY PRACTICE 12/15/15 Brady Ramirez MD [facility]. [address] [address] [place] Seismic Engineer CARDIOVASCULAR DISEASE 12/15/15
--- OUTSIDE RECORDS SUMMARY | 2025-06-24 20:03 | XMS_ITS | Clinical Summary ---
Author Organization [place] [facility] Address [address] [place] [address] Care Team Providers Care Heel Burnisher Name Role Phone Gerber Irby MD Primary [...] Date Smoking Tobacco: Every Day Cigarettes 1 29.9 Started: 1995 Smokeless Tobacco: Never Tobacco Cessation:Ready [...] on file Legal Sex Male 5:42 PM CHILD CENTER ASSISTANT Gender Identity Not on file Sexual Orientation [...] 3:33 PM CDT Height 188 cm (6' 2.02) 03/24/2024 3:33 PM CDT Body Mass Index 53.25 03/24/2024 3:33 PM CDT Plan of Treatment Health Maintenance Due Date Last Done Comments Colon Cancer Screening-Colonoscopy 1969 Depression Screening 1969 Hepatitis C Screening 1969 Prostate Cancer Screening-PSA 1969 DTaP/Tdap/Td Vaccine (1 - Tdap) 1980 Hepatitis B Screening 1987 Regular Well Visit/Exam 18-64 1987 Pneumococcal vaccine <65 (1 of 2 - PCV) 1988 Zoster Vaccine (1 of 2) 2019 Covid-19 Vaccine (3 - 2024-2 6 season) 2025 10/12/2020, 09/23/2020 Influenza Vaccine (#1) 2025 2, 04/30/2021, 03/30/2020, Additional history exists Insurance [facility] [facility] Advance Directives For more information, please contact: [phone] * Full Code (Latest Code Status on File) Date Activated Date Inactivated Comments 03/07/2024 10:27 PM 03/09/2024 6:54 PM * Full Code Date Activated Date Inactivated Comments 10/07/2021 2:10 PM 10/08/2021 4:49 AM Care Teams Heel Burnisher Relationship Specialty Start Date End Date Gerber Irby MD [address] [place] [address] PCP - General Family Medicine 11/10/21
--- OUTSIDE RECORDS SUMMARY | 2025-06-24 20:03 | XMS_ITS | Encounter Summary ---
Author Organization [facility] Address [address] [place] [address] Care Team Providers Care Photonics Technician Name Role Phone Gerber Irby MD Primary Care Provider [phone] Brady Ramirez MD Unavailable [phone] Encounter Details Date Type Department Care Team (Late st Contact Info) Description 07/25/2016 [facility] [address] [address] Vero Winter [place] Social History Tobacco Use Types Packs/Day Years Used Date Smoking Tobacco: Every Day Smokeless Tobacco: Never Comments:1ppd Alcohol Use Standard Drinks/Week Comments Yes 0 (1 standard drink = 0.6 oz pur e alcohol) 2-4/week Sex and Gender Information Value Date Recorded Sex Assigned at Male 06/16/2025 1:49 PM ANIMAL SHELTER MANAGER Legal Sex Male 10:20 PM CDT Gender Identity Male 06/16/2025 1:49 PM ANIMAL SHELTER MANAGER Sexual Orientation Not on file 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 Seen in clinic today AL SHELTER MANAGER documented in this encounter Plan of Treatment Upcoming Encounters Date Type Department Care Team (Late st Contact Info) Description 12/15/2025 3:20 PM CDT Office Visit [facility] Family & Internal Medicine [address] [place] [address] Gerber Irby MD [address] [facility] [address] [place] [address] documented as of this encounter Procedures Procedure [...] on filedocumented in this encounter Care Teams Photonics Technician Relationship Specialty Start Date End Date Gerber Irby MD [address] [facility] [address] [place] [address] PCP - General FAMILY PRACTICE 12/15/15 Brady Ramirez MD [address] [place] [address] [employer] CARDIOVASCULAR DISEASE 12/15/15 documented as of this encounter
== END 2025-06-24 15:06 | disposition home or self-care (01) ==
PROVIDERS: PCP Family Medicine Sports Medicine; Visit Provider Urology
DX: N20.0 Calculus of kidney (principal)
CPT/HCPCS: 74018